=== PATIENT | male | born 1955 | race Caucasian/White ===

== ENCOUNTER 2016-09-09 18:00 | Inpatient (IN) | payer MEDICAID ==
--- NOTE | 2016-09-09 18:05 | EDPHY ---
HPI/HX/ROS/PE/MDM Narrative: CHIEF COMPLAINT: Fall, LOC. HPI: The patient is a 61-year-old male who presents via EMS in a c-collar from [facility]. Per EMS he fell from standing just prior to arrival, striking his head. He intermittently lost consciousness in the ambulance and was noted to be extremely aggressive. On arrival he ceased spontaneous breathing. GCS 3. History is thus severely limited. REVIEW OF SYSTEMS: Unobtainable due to patient's clinical condition. PMH: Blind in both eyes, bipolar disorder, diabetes. SOCIAL HISTORY: Lives at [facility], alcohol abuse. PHYSICAL EXAM: General: GCS 3. Head: Large hematoma to left occiput. ENT: ENT inspection normal.Bilateral eyes are deformed with cloudy anterior chambers. Neck: Normal inspection. Full range of motion. Respiratory: Minimal spontaneous respirations. Cardiovascular: Regular rate and rhythm. Strong peripheral pulses. Abdomen:The abdomen is nontender to palpation. There are no peritoneal signs. There are normal bowel sounds. Back: Normal to inspection. No tenderness to palpation. Skin: Normal color. No rash. Warm and dry. Extremities: Normal appearance. Full range of motion. Neuro: Unresponsive. ED Course: I met EMS on arrival and obtained a report from the carnival worker. He was receiving oxygen as he had stopped spontaneous respirations as he was rolled into the ED. A full trauma activation was called on arrival. Respiratory therapy and surgeon Dr. Lizarraga at bedside. He was able to spontaneously begin breathing on his own. An IV was established and labs ordered. Patient's alcohol level 274. 1805: 20mg IV Etomidate and 100mg IV Succinylcholine administered. Intubated with 7.5 tube (see procedure note for more detail). Procedure: Rapid sequence intubation. Indication for the procedure was head trauma. The patient was preoxygenated with 100% oxygen by face mask. The patient was given the following IV medications: 20mg IV Etomidate and 100mg IV Succinylcholine. The patient was orally endotracheally intubated under direct visualization with a 7.5 ETT. In line stabilization was performed during the procedure. Tracheal intubation was confirmed with misting on the tube; breath sounds were auscultated equally bilaterally. Chest X-ray shows ETT in good position. The procedure was performed by myself, Dr. Kuo. 181: Patient log-rolled. On exam he has a large inactive hematoma to the left occiput. Chest x-ray obtained. The patient was sent to CT for imaging at this time. Study: PA and Lateral Chest X-ray Indication: RSI. Results: I viewed the images myself on the PACS system. The radiologist interpretation is: 1. Well-positioned ET tube. 2. Clear lungs. No discernible acute injury Study: CT of the head. Indication: Trauma, AMS. Results: 1. No acute skull fracture or intracranial hemorrhage. 2. Moderate left parietal scalp hematoma. 3. Old nasal fracture and mild ethmoid and right maxillary sinus disease. The study was read by the radiologist, Dr. Lemus. I viewed the images myself on the PACS system. Study: CT of the chest. Indication: AMS. Results: 1. No evidence of acute aortic injury. 2. Bibasilar atelectasis. No pneumothorax or pulmonary contusion. 3. No acute fracture. 4. Well-positioned ET tube. 5. Query esophagitis. The study was read by the radiologist, Dr. Lemus. I viewed the images myself on the PACS system. Study: CT of the abdomen/pelvis. Indication: AMS. Results: 1. No evidence of solid organ or bowel injury. 2. No free fluid or acute fracture. 3. Cirrhosis and splenomegaly suggestive of portal venous hypertension. 4. Minimal diverticulosis of the right hemicolon. No acute diverticulitis. The study was read by the radiologist, Dr. Lemus. I viewed the images myself on the PACS system. 1930: Consulted with Dr. Emerson, hospitalist. He accepts admission. Procedure: Laceration repair. The 1.5cm laceration on the left occiput was cleaned with standard ED protocol, draped and explored to its base with a gloved finger. There were no deep structures involved. The wound was repaired in single layer technique with 3 4- 0 Prolene sutures. The wound repair was simple. The procedure was performed by myself, Dr. Kuo. Sutures to be removed in 7 days. I spent a total of 40 minutes of critical care time in obtaining history, performing a physical exam, bedside monitoring of interventions, collecting and interpreting tests and discussion with consultants but not including time spent performing procedures. MDM: This patient presents with respiratory arrest of unknown etiology. He is clearly intoxicated and did have a fall, as such was called as a full trauma activation. Thankfully, his CT scans are negative for acute trauma. He will require admission the hospital and further workup to determine the ultimate etiology of his condition. I see no signs of acute coronary syndrome, pulmonary embolus, infectious process or stroke. - Data Points Laboratory Results: Laboratory Results 09/09/16 18:07 09/09/16 18:07 09/09/16 09/09/16 09/09/16 18:45 18:07 18:07 WBC RBC Hgb POC Hgb Hct POC Hct MCV MCH MCHC RDW Plt Count MPV Neut % (Auto) Lymph % (Auto) [place] % (Auto) Eos % (Auto) Baso % (Auto) Nucleat RBC Rel Count Absolute Neuts (auto) Absolute Lymphs (auto) Absolute Monos (auto) Absolute Eos (auto) Absolute Basos (auto) Absolute Nucleated RBC Immature Gran % Immature Gran # PT INR APTT Puncture Site LEFT RADIAL Patient Temperature 37.0 DEGREES DEGREES pCO2 37 mmHg mmHg (34-38) pO2 290 mmHg H mmHg (65-75) Total CO2 20 mEq/L L mEq/L (23-27) ABG pH 7.34 L (7.35-7.45) ABG PO2/FiO2 Ratio 363 RATIO RATIO ABG O2 Saturation 100 % H % (92-95) ABG Base Excess -5.5 mEq/L L mEq/L (-2.5-2.5) O2 Concentration % 80 % % (0-100) Actual Respiration Rate 16 Set Respiration Rate 16 SIMV YES Tidal Volume 550 PEEP 5 Peak Inspir Pressure 30 Pressure Support 7 POC Sodium Sodium 142 mEq/L mEq/L (134-144) POC Potassium Potassium 3.7 mEq/L mEq/L (3.5-5.2) POC Chloride Chloride 106 mEq/L mEq/L (97-110) Carbon Dioxide 20 mEq/l L mEq/l (22-31) Bicarbonate 19 mEq/L L mEq/L (22-26) Anion Gap 16 mEq/L mEq/L (8-16) POC BUN BUN 10 mg/dL mg/dL (7-23) Creatinine 0.7 mg/dL mg/dL (0.7-1.3) POC Creatinine Estimated GFR > 60 Glucose 209 mg/dL H mg/dL (70-100) POC Glucose Calcium 9.2 mg/dL mg/dL (8.5-10.4) Ethyl Alcohol 274 mg/dL H mg/dL (0-10) Patient ABO/Rh O POSITIVE Antibody Screen NEGATIVE 09/09/16 09/09/16 09/09/16 18:07 18:07 18:04 WBC 4.86 10^3/uL 10^3/uL (3.80-9.50) RBC 5.44 10^6/uL 10^6/uL (4.40-6.38) Hgb 15.3 g/dL g/dL (13.7-17.5) POC Hgb 16.0 gm/dL gm/dL (14.5-17.3) Hct 44.9 % % (40.0-51.0) POC Hct 47 % % (42.8-50.6) MCV 82.5 fL fL (81.5-99.8) MCH 28.1 pg pg (27.9-34.1) MCHC 34.1 g/dL g/dL (32.4-36.7) RDW 11.9 % % (11.5-15.2) Plt Count 91 10^3/uL L 10^3/uL (150-400) MPV 11.1 fL fL (8.7-11.7) Neut % (Auto) 57.4 % % (39.3-74.2) Lymph % (Auto) 34.4 % % (15.0-45.0) Duval % (Auto) 6.2 % % (4.5-13.0) Eos % (Auto) 0.8 % % (0.6-7.6) Baso % (Auto) 0.8 % % (0.3-1.7) Nucleat RBC Rel Count 0.0 % % (0.0-0.2) Absolute Neuts (auto) 2.79 10^3/uL 10^3/uL (1.70-6.50) Absolute Lymphs (auto) 1.67 10^3/uL 10^3/uL (1.00-3.00) Absolute Monos (auto) 0.30 10^3/uL 10^3/uL (0.30-0.80) Absolute Eos (auto) 0.04 10^3/uL 10^3/uL (0.03-0.40) Absolute Basos (auto) 0.04 10^3/uL 10^3/uL (0.02-0.10) Absolute Nucleated RBC 0.00 10^3/uL 10^3/uL (0-0.01) Immature Gran % 0.4 % % (0.0-1.1) Immature Gran # 0.02 10^3/uL 10^3/uL (0.00-0.10) PT 14.2 SEC SEC (12.0-15.0) INR 1.11 (0.83-1.16) APTT 29.6 SEC SEC (23.0-38.0) Puncture Site Patient Temperature pCO2 pO2 Total CO2 ABG pH ABG PO2/FiO2 Ratio ABG O2 Saturation ABG Base Excess O2 Concentration % Actual Respiration Rate Set Respiration Rate SIMV Tidal Volume PEEP Peak Inspir Pressure Pressure Support POC Sodium 144 mEq/L mEq/L (134-144) Sodium POC Potassium 3.3 mEq/L mEq/L (3.3-5.0) Potassium POC Chloride 105 mEq/L mEq/L (96-108) Chloride Carbon Dioxide Bicarbonate Anion Gap POC BUN 9 mg/dL mg/dL (7-23) BUN Creatinine POC Creatinine 1.0 mg/dL mg/dL (0.8-1.5) Estimated GFR Glucose POC Glucose 211 mg/dL H mg/dL (70-100) Calcium Ethyl Alcohol Patient ABO/Rh Antibody Screen Medications Given: Discontinued Medications Etomidate (Etomidate) 20 mg IVP EDNOW ONE Stop: 09/09/16 19:23 Last Admin: 09/09/16 18:06 Dose: 20 mg Fentanyl (Sublimaze) 50 mcg IVP EDNOW ONE Stop: 09/09/16 20:00 Last Admin: 09/09/16 19:55 Dose: 50 mcg Lorazepam (Ativan Injection) 2 mg IVP EDNOW ONE Stop: 09/09/16 19:26 Last Admin: 09/09/16 19:25 Dose: 2 mg Propofol (Diprivan) 60 mg IVP EDNOW ONE Stop: 09/09/16 19:24 Last Admin: 09/09/16 18:20 Dose: 60 mg Succinylcholine Chloride (Quelicin) 100 mg IVP EDNOW ONE Stop: 09/09/16 19:23 Last Admin: 09/09/16 18:06 Dose: 100 mg Point of Care Test Results: 09/09/16 18:04 POC Sodium 144 POC Potassium 3.3 POC Chloride 105 POC BUN 9 POC Creatinine 1.0 POC Glucose 211 H General Initial Vital Signs: Initial Vital Signs Temperature (C) 36.4 C 09/09/16 18:03 Heart Rate 115 H 09/09/16 18:03 Respiratory Rate 20 09/09/16 18:03 Blood Pressure 98/65 L 09/09/16 18:03 O2 Sat (%) 100 09/09/16 18:03 O2 Delivery Mode Bag Valve Mask O2 (L/minute) 15 Allergies/Adverse Reactions: Penicillins Allergy (Verified 09/30/15 23:34) Home Medications: Medication Instructions Recorded Brimonidine/Timolol [Combigan (*)] 1 drop RTEYE HS 09/09/16 Calcium Carbonate [Tums 500MG (*)] 1,000 mg PO Q12H PRN 09/09/16 Cholecalciferol Vit D3 [Vitamin D3 5,000 units PO MO@08 09/09/16 (*)] Hydrocodone/Acetaminophen [[place]ante 1 each PO Q4 PRN 09/09/16 5/325 (*)] Insulin Detemir [Levemir Flextouch] 26 unit SQ BID@,09/09/16 Latanoprost 0.005% [Xalatan 0.005% 1 drops EACHEYE HS 09/09/16 (*)] Magnesium Hydroxide [Milk of 30 ml PO DAILY PRN 09/09/16 Magnesia] Omeprazole [Prilosec 20 mg] 20 mg PO DAILY 09/09/16 Pregabalin [Lyrica 50mg (*)] 50 mg PO BID@,20 09/09/16 QUEtiapine FUMARATE [Seroquel 200 200 mg PO HS 09/09/16 mg (*)] Departure - Departure Disposition: [facility] Clinical Impression: Altered mental status Qualifiers: Altered mental status type: unspecified Qualified Code(s): R41.82 - Altered mental status, unspecified Head injury Qualifiers: Encounter type: initial encounter Qualified Code(s): S09.90XA - Unspecified injury of head, initial encounter Scalp laceration Qualifiers: Encounter type: initial encounter Qualified Code(s): S01.01XA - Laceration without foreign body of scalp, initial encounter Condition: Fair Report Scribed for: Min Kuo Report Scribed by: Ran George Date of Report: 09/09/16 Time of Report: 18:05 Physician Review and Approval Statement: Portions of this note were transcribed by a medical and scientific illustrator. I personally performed a history, physical exam, medical decision making, and confirmed accuracy of information the transcribed note.
[2016-09-09 18:14] LABS: % IMMATURE GRANULYOCYTES 0.4 % (0.0-1.1); ABSOLUTE IMMATURE GRANULOCYTES 0.02 10^3/uL (0.00-0.10); ADD DIFF? NO; ADD MORPH? NO; ADD SCAN? NO; ATYPICAL LYMPHOCYTE FLAG 10 (0-99); FRAGMENT RBC FLAG 0 (0-99); HEMATOCRIT 44.9 % (40.0-51.0); HEMOGLOBIN 15.3 g/dL (13.7-17.5); LEFT SHIFT FLG 0 (0-99); LIPEMIA HEMOLYSIS FLAG 90 (0-99); MEAN CELL HEMOGLOBIN 28.1 pg (27.9-34.1); MEAN CELL HEMOGLOBIN CONCENTR. 34.1 g/dL (32.4-36.7); MEAN CELL VOLUME 82.5 fL (81.5-99.8); MEAN PLATELET VOLUME 11.1 fL (8.7-11.7); PLATELET CLUMPS FLAG 20 (0-99); PLATELET COUNT 91 10^3/uL (150-400); RED BLOOD CELL COUNT 5.44 10^6/uL (4.40-6.38); RED CELL DISTRIBUTION WIDTH 11.9 % (11.5-15.2)
[2016-09-09 18:32] LABS: INR 1.11 (0.83-1.16); PROTIME(PATIENT) 14.2 SEC (12.0-15.0)
[2016-09-09 18:33] LABS: ANION GAP 16 mEq/L (8-16); APTT 29.6 SEC (23.0-38.0); CALCIUM 9.2 mg/dL (8.5-10.4); CARBON DIOXIDE 20 mEq/l (22-31); CHLORIDE 106 mEq/L (97-110); CREATININE 0.7 mg/dL (0.7-1.3); ETHANOL SERUM 274 mg/dL (0-10); GLOMERULAR FILTRATION RATE > 60; GLUCOSE 209 mg/dL (70-100); POTASSIUM 3.7 mEq/L (3.5-5.2); SODIUM 142 mEq/L (134-144)
[2016-09-09] MEDS ORDERED: IOPAMIDOL (ISOVUE-300) 100 ML BTL IV ONE (18:41)
[2016-09-09 19:04] LABS: BASE EXCESS -5.5 mEq/L (-2.5-2.5); BICARBONATE 19 mEq/L (22-26); MEASURED OXYGEN SATURATION 100 % (92-95); PCO2 37 mmHg (34-38); PO2 290 mmHg (65-75); TCO2 20 mEq/L (23-27)
[2016-09-09 19:05] LABS: O2 CONCENTRATIION 80 % (0-100); P/F RATIO 363 RATIO; PATIENT RATE 16; PIP 30; PRESSURE SUPPORT 7; SIMV YES
[2016-09-09] MEDS ORDERED: LORazepam 2 MG/ML INJ ONE (19:18)
[2016-09-09] MEDS ORDERED: SUCCINYLCHOLINE CHLORIDE 200 MG/10 ML VIAL IVP ONE (19:22)
[2016-09-09] MEDS ORDERED: ETOMIDATE 20 MG/10 ML VIAL IVP ONE (19:22)
[2016-09-09] MEDS ORDERED: PROPOFOL 200 MG/20 ML VIAL IVP ONE (19:23)
[2016-09-09] MEDS ORDERED: LORazepam 2 MG/ML INJ IVP ONE (19:25)
[2016-09-09] MEDS ORDERED: PROPOFOL/EMULSION 100 ML IV SCH (19:30)
[2016-09-09] MEDS ORDERED: fentaNYL 100 MCG/2 ML INJ ONE (19:55)
[2016-09-09] MEDS ORDERED: fentaNYL 100 MCG/2 ML INJ IVP ONE (19:59)
--- NOTE | 2016-09-09 20:04 | CPEKG ---
Heart Rate: 90 RR Interval: 667 P-R Interval: 148 QRSD Interval: 86 QT Interval: 380 QTC Interval: 465 P [place]: 62 QRS [place]: 63 T Wave [place]: 46 EKG Severity - OTHERWISE NORMAL ECG - EKG Impression: SINUS RHYTHM EKG Impression: LOW VOLTAGE IN FRONTAL LEADS Electronically Signed By: Andrew Mcdermott 10-Sep-2016 09:41:41
[2016-09-09] MEDS ORDERED: SUCCINYLCHOLINE CHLORIDE*ANESTHESIA ONLY*200 MG/10 ML SYR IVP ONE (20:25)
[2016-09-09] MEDS ORDERED: ETOMIDATE 40 MG/20 ML INJ ONE (20:25)
[2016-09-09] MEDS ORDERED: D50W 25 GM/50 ML SYR IVP PRN (20:45)
[2016-09-09] MEDS ORDERED: ONDANSETRON 4 MG/2 ML VIAL IVP PRN (20:45)
[2016-09-09] MEDS ORDERED: PROMETHAZINE HCL 25 MG/ML INJ IVP PRN (20:45)
[2016-09-09] MEDS ORDERED: MAGNESIUM HYDROXIDE 30 ML UDCUP PO PRN (20:47)
[2016-09-09] MEDS ORDERED: BRIMONIDINE/TIMOLOL 5 ML OPHT.BTL RTEYE SCH (21:00)
[2016-09-09] MEDS ORDERED: LATANOPROST 0.005% 2.5 ML OPHT DROPS EACHEYE SCH (21:00)
--- NOTE | 2016-09-09 21:23 | GHP ---
[f rep st] HISTORY AND PHYSICAL DATE OF ADMISSION: 09/09/2016 CHIEF COMPLAINT: Fall with loss of consciousness. HISTORY OF PRESENT ILLNESS: This is a 61-year-old male resident of [facility] with a history of alcohol abuse, chronic pain, diabetes, who was brought to the Emergency Department in a C-collar. Per EMS, he fell from standing just prior to arrival, and struck his head. He intermittently lost consciousness in the ambulance and was noted to be very aggressive. Upon arrival to the Emergency Department, the patient stopped breathing and was subsequently intubated with a GCS of 3. During the time of my exam, the patient is intubated and unresponsive in the Emergency Department, making it impossible to obtain any further history. In the Emergency Department, the patient was found to have an ethyl alcohol level of 274. He also sustained a laceration to the back of his head for which he should have suture removal in 7 days. PAST MEDICAL HISTORY: Diabetes, alcohol abuse, chronic pain, bipolar disorder. PAST SURGICAL HISTORY: Unobtainable. HOME MEDICATIONS: Seroquel, Lyrica, Prilosec, milk of magnesia, Xalatan, Levemir, Talmo, vitamin D, TUMS, and Combigan. ALLERGIES: Penicillin. SOCIAL HISTORY: The patient lives at [facility]. He has long history of alcohol abuse. REVIEW OF SYSTEMS: A comprehensive 10-point review of systems was attempted, but unable to be obtained due to the patient's clinical condition. PHYSICAL EXAM: VITAL SIGNS: Blood pressure 101/62, pulse of 85, respiratory rate 16, O2 saturation 94% on the vent, temperature afebrile. GENERAL: Unresponsive. HEAD: Normocephalic. Closed laceration posteriorly. NECK: In C-collar. CARDIOVASCULAR: S1, S2. No JVD. No lower extremity edema. PULMONARY: Lungs are clear. No wheezes, rales, or rhonchi. ABDOMEN: Soft, nontender, nondistended. No guarding or rebound tenderness. Normoactive bowel sounds. EXTREMITIES: No clubbing or cyanosis. NEURO: Unable to assess since the patient is on propofol and not following commands. SKIN: Clear, no rashes , no jaundice. DIAGNOSTICS: EKG, which I visualized and personally interpreted, shows sinus rhythm, rate 90 beats per minute, no acute ischemic changes. Chest x-ray shows a well-positioned ET tube. Lungs are clear with no pneumonia. CT of head was negative for skull fracture or intracranial hemorrhage. Moderate left parietal scalp hematoma. Old nasal fracture and mild ethmoid and right maxillary sinus disease. CT of the abdomen and pelvis: No evidence of solid organ or bowel injury. No free fluid or acute fracture as evidence for cirrhosis and splenomegaly. Has minimal diverticulosis of the right hemicolon with no acute diverticulitis. CT of the chest with IV contrast: No evidence of acute aortic injury or pneumonia. WBC is 4.8, hemoglobin 15.3, hematocrit 44.9, platelets 91. INR 1.11. Sodium 142, potassium 3.7, chloride 106, CO2 20, BUN 10, creatinine 0.7, glucose 209, bicarb 19. Ethyl alcohol level 274. ASSESSMENT AND PLAN: This is a 61-year-old male resident of [facility] who was brought to the emergency department with: 1. Acute encephalopathy possibly due to acute alcohol intoxication as well as concomitant opioid use. Plan: The patient is currently intubated and sedated in the Emergency Department. See below. 2. Acute respiratory failure of unclear etiology status post intubation in the Emergency Department also possibly due to narcotics and alcohol Plan: Will continue the patient on mechanical ventilation overnight. Will consult Pulmonary Critical Care and wean from the ventilator as tolerated. Check troponin. Doubt PE in the absence of hypoxemia. 3. History of alcohol abuse. Plan: Will obtain liver function tests, as well as a serum ammonia level. 4. Scalp laceration. Plan: Will need suture removal in 7 days. 5. Diabetes. Plan: Monitor blood sugars and watch for hypoglycemia. Will treat with correctional insulin for now and resume basal insulin /[id number]/MODL MTDD
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
[2016-09-09] MEDS: INSULIN GLARGINE 100 UNITS/ML SYRINGE SC SCH (21:36)
[2016-09-10 05:06] LABS: % IMMATURE GRANULYOCYTES 0.3 % (0.0-1.1); ABSOLUTE IMMATURE GRANULOCYTES 0.01 10^3/uL (0.00-0.10); ADD DIFF? NO; ADD MORPH? NO; ADD SCAN? NO; ATYPICAL LYMPHOCYTE FLAG 0 (0-99); FRAGMENT RBC FLAG 0 (0-99); HEMOGLOBIN 13.6 g/dL (13.7-17.5); LEFT SHIFT FLG 0 (0-99); LIPEMIA HEMOLYSIS FLAG 90 (0-99); MEAN CELL HEMOGLOBIN 28.8 pg (27.9-34.1); MEAN CELL VOLUME 84.7 fL (81.5-99.8); MEAN PLATELET VOLUME 11.4 fL (8.7-11.7); PLATELET CLUMPS FLAG 0 (0-99); PLATELET COUNT 73 10^3/uL (150-400); RED BLOOD CELL COUNT 4.72 10^6/uL (4.40-6.38); RED CELL DISTRIBUTION WIDTH 12.2 % (11.5-15.2)
[2016-09-10 05:21] LABS: ALANINE AMINOTRANSFERASE 36 IU/L (21-72); ALBUMIN 3.4 g/dL (3.5-5.0); ALKALINE PHOSPHATASE 85 IU/L (38-126); ANION GAP 8 mEq/L (8-16); ASPARTATE AMINOTRANSFERASE 18 IU/L (17-59); BILIRUBIN,TOTAL 0.5 mg/dL (0.1-1.4); CALCIUM 8.2 mg/dL (8.5-10.4); CARBON DIOXIDE 22 mEq/l (22-31); CHLORIDE 114 mEq/L (97-110); CREATININE 0.6 mg/dL (0.7-1.3); GLOMERULAR FILTRATION RATE > 60; GLUCOSE 143 mg/dL (70-100); POTASSIUM 3.8 mEq/L (3.5-5.2); SODIUM 144 mEq/L (134-144); TOTAL PROTEIN 6.5 g/dL (6.3-8.2)
[2016-09-10] MEDS ORDERED: LORazepam 2 MG/ML INJ IVP PRN (06:53)
[2016-09-10] MEDS: INSULIN LISPRO 100 UNIT/ML SC SCH ×2 (08:51→13:11)
[2016-09-10] MEDS ORDERED: ENOXAPARIN 40 MG/0.4 ML SYR SC SCH (09:00)
[2016-09-10] MEDS ORDERED: PANTOPRAZOLE SODIUM 40 MG in NS 100 ML IV SCH (09:00)
[2016-09-10] MEDS: INSULIN GLARGINE 100 UNITS/ML SYRINGE SC SCH (09:10)
[2016-09-10] MEDS ORDERED: NS 1,000 ML IV ONE (11:22)
--- NOTE | 2016-09-10 13:07 | SOAPPROG ---
SOAP Progress Note Assessment/Plan: Assessment:asked to follow-up regarding c-spine clearance. patient up in chair. no neck complaints. no extremity numbness or tingling. afebrile. vss. comfortable. [place] J in place. scalp lac clean. no midline or paraspinal neck tenderness. no pain with flexion or extension. neck clinically cleared. dispo per hospital med. call with questions. Plan: 09/10/16 13:04 Objective: Vital Signs Temp Pulse Resp BP Pulse Ox 37.3 C 117 H 18 163/81 H 100 09/10/16 08:00 09/10/16 10:00 09/10/16 10:00 09/10/16 10:00 09/10/16 10:00 Laboratory Results 09/10/16 04:50 09/10/16 04:50 09/09/16 09/10/16 09/11/16 05:59 05:59 05:59 Intake Total 572 Output Total 1800 Balance -1228 PT 14.2 SEC (12.0-15.0) 09/09/16 18:07 INR 1.11 (0.83-1.16) 09/09/16 18:07 ICD10 Worksheet Patient Problems: Problems Problem Status Onset Altered mental status Acute Head injury Acute Scalp laceration Acute
--- NOTE | 2016-09-10 13:11 | PDIAF ---
- Diagnosis Diagnosis: alcohol intoxication Code Status: Full Code - Medication Management Discharge Medications: Medications to Continue on Transfer Brimonidine/Timolol [Combigan (*)] 1 drop RTEYE HS 09/09/16 [Last Taken 09/08/16 ] Calcium Carbonate [Tums 500MG (*)] 1,000 mg PO Q12H PRN 09/09/16 [Last Taken Unknown] Cholecalciferol Vit D3 [Vitamin D3 (*)] 5,000 units PO MO@09/09/16 [Last Taken 09/03/16] Hydrocodone/Acetaminophen [[place] 5/325 (*)] 1 each PO Q4 PRN 09/09/16 [Last Taken 09/08/16 21:50] Insulin Detemir [Levemir Flextouch] 26 unit SQ BID@,09/09/16 [Last Taken 08:00] Latanoprost 0.005% [Xalatan 0.005% (*)] 1 drops EACHEYE HS 09/09/16 [Last Taken 09/08/16] Magnesium Hydroxide [Milk of Magnesia] 30 ml PO DAILY PRN 09/09/16 [Last Taken Unknown] Omeprazole [Prilosec 20 mg] 20 mg PO DAILY 09/09/16 [Last Taken 09/09/16] Pregabalin [Lyrica 50mg (*)] 50 mg PO BID@,09/09/16 [Last Taken 08/28/16] QUEtiapine FUMARATE [Seroquel 200 mg (*)] 200 mg PO HS 09/09/16 [Last Taken ] Discharge Medications: Refer to the Discharge Home Medication list for PRN reason. - Follow Up Care Current Providers and Referrals: Patient,NotPresent [Primary Care Provider] - As per Instructions
[2016-09-10 13:17] VITALS: BP 140/55; PULSE 120; RESP 24; TEMP 98.4; O2SAT 98
--- NOTE | 2016-09-10 13:35 | GDS ---
[f rep st] DISCHARGE SUMMARY DISCHARGE DIAGNOSES: 1. Alcohol intoxication. 2. Status post fall with posterior scalp laceration. 3. Acute respiratory failure requiring intubation for a short duration of time. 4. History of type 2 diabetes. 5. History of alcohol abuse. 6. Chronic pain. 7. Bipolar. HISTORY: A 61-year-old male who lives at [facility]. He does have a previous history of alcohol abuse. He states that he slipped on a hard floor with socks. He intermittently lost consciousness in the ambulance and was very aggressive. He was intubated in the emergency department for a GCS o f 3. His alcohol level is 274. HOSPITAL COURSE: Patient was admitted and actually self-extubated overnight. In the morning, he wa s lucid, alert, and quite combative and aggressive at times. He is demanding to be discharged back to [facility]. His C-spine was cleared. His electrolytes appeared to be normal. He is going to be discharged back. DISPOSITION: [facility]. DISCHARGE MEDICATIONS: He is to resume his previous medications. FOLLOWUP INSTRUCTIONS: He is instructed to get his sutures removed in 7 days. /[id number]/MODL
== END 2016-09-10 14:15 | DRG 208 ==
LOC: EDUNIT# → F2N 20:16 → OBSVTOIN 20:46
PROVIDERS: ADMIT Family Medicine; ATTEND Internal Medicine
PROC: 5A1935Z Respiratory Ventilation, Less than 24 Consecutive Hours (ICD-10-PCS; principal; 2016-09-09)
PROC: 0HQ0XZZ Repair Scalp Skin, External Approach (ICD-10-PCS; principal; 2016-09-09)
PROC: 0BH17EZ Insertion of Endotracheal Airway into Trachea, Via Natural or Artificial Opening (ICD-10-PCS; principal; 2016-09-09)
DX: J96.00 Acute respiratory failure, unspecified whether with hypoxia or hypercapnia (principal); S01.01XA Laceration without foreign body of scalp, initial encounter; S06.9X1A Unspecified intracranial injury with loss of consciousness of 30 minutes or less, initial encounter; F10.229 Alcohol dependence with intoxication, unspecified; Y90.8 Blood alcohol level of 240 mg/100 ml or more; E11.40 Type 2 diabetes mellitus with diabetic neuropathy, unspecified; H54.0 Blindness, both eyes; F31.9 Bipolar disorder, unspecified; F11.20 Opioid dependence, uncomplicated; R40.2432 Glasgow coma scale score 3-8, at arrival to emergency department; W01.10XA Fall on same level from slipping, tripping and stumbling with subsequent striking against unspecified object, initial encounter; Y92.122 Bedroom in nursing home as the place of occurrence of the external cause; Z88.0 Allergy status to penicillin
CPT/HCPCS: 82947-QW; G0480; J0330; J1815; J2704; J3010; Q9967

== ENCOUNTER 2017-04-10 16:48 | Emergency (ER) | payer MEDICAID ==
[2017-04-10 16:59] VITALS: RESP 18; TEMP 98.6
--- NOTE | 2017-04-10 17:05 | EDPHY ---
H & P Time Seen by Provider: 04/10/17 16:49 HPI/ROS: CHIEF COMPLAINT: Right shoulder pain HISTORY OF PRESENT ILLNESS: 62-year-old male presents to the emergency department by ambulance complaining of severe pain in his right shoulder. He states 4 days ago while he was staying at [facility], he got up he to use the bathroom in the middle of the night and hit the corner of a wall with his right shoulder. He did not fall to the ground but had immediate pain in his right shoulder. They obtained x-rays at [facility] the following day which were negative for fracture. He has not been placed in a sling. He has pain is worse with movement. He denies pain in his right elbow or wrist. Denies head injury or neck pain. Denies chest pain or difficulty breathing. No fevers or chills. Denies paresthesias in upper extremities. Denies symptoms in the left upper extremity or lower extremities bilaterally. REVIEW OF SYSTEMS: Constitutional: No fever, no chills. Eyes: No double or blurry vision. ENT: No sore throat. Respiratory: No cough, no shortness of breath. Cardiac: No chest pain. Gastrointestinal: No abdominal pain, vomiting or diarrhea. Genitourinary: No dysuria. Musculoskeletal: No neck or back pain. Skin: No rashes. Neurological: No headache. Past Medical/Surgical History: Bipolar, chronic pain, type 2 diabetic, cirrhosis, blindness, splenomegaly Social History: Resident at [facility] x 1.5 years Smoking Status: Light smoker Physical Exam: General Appearance: Alert, no distress. Eyes: Pupils equal and round. Extraocular motions are all intact. ENT: Mouth: Mucous membranes moist. Respiratory: No wheezing, rhonchi, or rales, lungs are clear to auscultation. Cardiovascular: Regular rate and rhythm. Gastrointestinal: Abdomen is soft and nontender, no masses, no rebound or guarding, bowel sounds normal. Neurological: Alert and oriented x 3, cranial nerves II through XII grossly intact Skin: Warm and dry, no rashes. Musculoskeletal: Nontender to palpate along the cervical, thoracic or lumbar spine. Neck is supple. Extremities: Right shoulder reveals some mild swelling. There is no redness or warmth or anything to suggest cellulitis. He has full range of motion of his right elbow and right wrist. Limited range of motion of the right shoulder secondary to pain. No signs of septic joint. Psychiatric: Patient is oriented X 3, there is no agitation. Constitutional: Initial Vital Signs Temperature (C) 37 C 04/10/17 16:57 Heart Rate 99 04/10/17 16:57 Respiratory Rate 18 04/10/17 16:57 Blood Pressure 104/80 04/10/17 16:57 O2 Sat (%) 94 04/10/17 16:57 O2 Delivery Mode Room Air Allergies/Adverse Reactions: Penicillins Allergy (Verified 04/10/17 16:57) Home Medications: Medication Instructions Recorded Brimonidine/Timolol [Combigan (*)] 1 drop RTEYE HS 09/09/16 Calcium Carbonate [Tums 500MG (*)] 1,000 mg PO Q12H PRN 09/09/16 Cholecalciferol Vit D3 [Vitamin D3 5,000 units PO MO@08 09/09/16 (*)] Hydrocodone/Acetaminophen [[place] 1 each PO Q4 PRN 09/09/16 5/325 (*)] Insulin Detemir [Levemir Flextouch] 26 unit SQ BID@,09/09/16 Latanoprost 0.005% [Xalatan 0.005% 1 drops EACHEYE HS 09/09/16 (*)] Magnesium Hydroxide [Milk of 30 ml PO DAILY PRN 09/09/16 Magnesia] Omeprazole [Prilosec 20 mg] 20 mg PO DAILY 09/09/16 Pregabalin [Lyrica 50mg (*)] 50 mg PO BID@,09/09/16 QUEtiapine FUMARATE [Seroquel 200 200 mg PO HS 09/09/16 mg (*)] Medical Decision Making Procedures: The patient was placed in a sling and examined post application in good placement 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 ED Course/Re-evaluation: 62-year-old male who ran into the wall and injured his right shoulder presents with ongoing pain. His x-ray report from [facility] was reviewed and revealed no fractures. I do not think repeat imaging is necessary. He was placed in a sling for comfort and was actually feeling much better. I do not think this patient has a septic joint. I do not see any evidence of cellulitis. He does have a mild effusion noted on exam however I do not think that this is septic joint. I also encouraged anti-inflammatories. He will follow up with orthopedic surgeon this week or early next week to recheck. He was comfortable with this plan. Differential Diagnosis: Including but not limited to fracture, dislocation, contusion, sprain Departure - Departure Disposition: Home, Routine, Self-Care Clinical Impression: Contusion of right shoulder Qualifiers: Encounter type: initial encounter Qualified Code(s): S40.011A - Contusion of right shoulder, initial encounter Condition: Good Instructions: Contusion in Adults (ED) Additional Instructions: Sling for comfort and support. Ibuprofen 600mg every 8 hours for pain as directed or you may take Aleve twice daily with food. Referrals: Schuyler Dunlap MD [Medical Doctor] - 2-3 days without fail (Orthopedic surgeon on-call)
[2017-04-10 18:47] VITALS: BP 138/89; PULSE 96; O2SAT 95
== END 2017-04-10 18:46 | disposition home or self-care (01) ==
LOC: EDUNIT# → EEVIPCON 16:48
DX: S40.011A Contusion of right shoulder, initial encounter (principal); E11.9 Type 2 diabetes mellitus without complications; F17.200 Nicotine dependence, unspecified, uncomplicated; Z79.4 Long term (current) use of insulin; W22.8XXA Striking against or struck by other objects, initial encounter; Y99.8 Other external cause status; Y93.89 Activity, other specified

== ENCOUNTER 2017-05-01 10:26 | Inpatient (IN) | payer MEDICAID ==
[2017-05-01] MEDS ORDERED: NS 2,600 ML IV ONE (11:12)
--- NOTE | 2017-05-01 11:15 | EDPHY ---
H & P Stated Complaint: Sent to ED for MRI/eval poss septic joint R shoulder Time Seen by Provider: 05/01/17 11:03 HPI/ROS: CHIEF COMPLAINT: Shoulder pain HISTORY OF PRESENT ILLNESS: The patient is a 62-year-old diabetic man with blindness and alcoholism who is sent from Dr. dunlap's office for rule out osteomyelitis of his right shoulder. The patient was seen in the ER 3 weeks ago after he bumped his shoulder on the wall. [facility]. He was placed in a sling. No sign of infection at that time. He followed up with Dr. Dunlap's office today and x- rays revealed some lucency in the bone that could be osteomyelitis. He has overlying erythema and warmth and pain. He denies fevers. No nausea vomiting or diarrhea. No abdominal pain. No chest pain or shortness of breath. Dr. Dunlap's plans to operate tomorrow and initially was going to admit the hospital is full. REVIEW OF SYSTEMS: Constitutional: denies: chills, fever, recent illness, recent injury EENTM: denies: blurred vision, double vision, nose congestion Respiratory: denies: cough, shortness of breath Cardiac: denies: chest pain, irregular heart rate, lightheadedness, palpitations Gastrointestinal/Abdominal: denies: abdominal pain, diarrhea, nausea, vomiting, blood streaked stools Genitourinary: denies: dysuria, frequency, hematuria, pain Musculoskeletal: See HPI Skin: See HPI Neurological: denies: headache, numbness, paresthesia, tingling, dizziness, weakness Hematologic/Lymphatic: denies: blood clots, easy bleeding, easy bruising Immunologic/allergic: denies: HIV/AIDS, transplant EXAM: GENERAL: Well-appearing, well-nourished and in no acute distress. HEAD: Atraumatic, normocephalic. EYES: Pupils equal round and reactive to light, extraocular movements intact, sclera anicteric, conjunctiva are normal. ENT: TMs normal, nares patent, oropharynx clear without exudates. Moist mucous membranes. NECK: Normal range of motion, supple without lymphadenopathy or JVD. LUNGS: Breath sounds clear to auscultation bilaterally and equal. No wheezes rales or rhonchi. HEART: Regular rate and rhythm without murmurs, rubs or gallops. ABDOMEN: Soft, nontender, normoactive bowel sounds. No guarding, no rebound. No masses appreciated. BACK: No CVA tenderness, no spinal tenderness, step-offs or deformities EXTREMITIES: Right shoulder pain, limited range of motion tired slightly erythematous and tends. No visible abrasion or laceration. NEUROLOGICAL: Cranial nerves II through XII grossly intact. Normal speech, normal gait. 5/5 strength, normal movement in all extremities, normal sensation PSYCH: Normal mood, normal affect. SKIN: Warm, dry, normal turgor, no visible rashes or lesions. Source: Patient Exam Limitations: No limitations - Personal History Current Tetanus Diphtheria and Acellular Pertussis (TDAP): Yes - Medical/Surgical History Hx Asthma: No Hx Chronic Respiratory Disease: No Hx Diabetes: Yes Hx Cardiac Disease: No Hx Renal Disease: No Hx Cirrhosis: No Hx Alcoholism: No Hx HIV/AIDS: No Hx Splenectomy or Spleen Trauma: No Other PMH: BIPOLAR,CHRONIC PAIN,TYPE 2 DM,BLINDNESS, CIRROHSIS, SPENOMEGALY - Family History Significant Family History: No pertinent family hx - Social History Smoking Status: Current every day smoker Alcohol Use: Heavy Drug Use: None Constitutional: Initial Vital Signs Temperature (C) 36.6 C 05/01/17 10:35 Heart Rate 94 05/01/17 10:35 Respiratory Rate 18 05/01/17 10:35 Blood Pressure 85/61 L 05/01/17 10:35 O2 Sat (%) 94 05/01/17 10:35 O2 Delivery Mode Room Air Allergies/Adverse Reactions: Penicillins Allergy (Intermediate, Verified 05/01/17 10:49) Hives Home Medications: Medication Instructions Recorded Brimonidine/Timolol [Combigan (*)] 1 drop RTEYE BID 09/09/16 Calcium Carbonate [Tums 500MG (*)] 1,000 mg PO Q12H PRN 09/09/16 Cholecalciferol Vit D3 [Vitamin D3 5,000 units PO MO 09/09/16 (*)] Latanoprost 0.005% [Xalatan 0.005% 1 drops RTEYE HS 09/09/16 (*)] Magnesium Hydroxide [Milk of 30 ml PO DAILY PRN 09/09/16 Magnesia] Omeprazole [Prilosec 20 mg] 20 mg PO HS 09/09/16 Acetaminophen [Tylenol 325mg (*)] 650 mg PO Q6HRS PRN 05/01/17 Diclofenac Sodium 1% [Voltaren Gel 1 maxwell TP QID PRN 05/01/17 (*)] Gabapentin [Neurontin 300 MG (*)] 300 mg PO TID 05/01/17 Insulin Aspart [Novolog Flexpen] 4 unit SQ BID 05/01/17 Insulin Detemir [Levemir] 30 unit SQ BID 05/01/17 Ondansetron Odt [Zofran Odt 4 mg 4 mg PO Q6HRS PRN 05/01/17 (*)] QUEtiapine FUMARATE [Seroquel 100 100 mg PO DAILY 05/01/17 mg (*)] oxyCODONE IR [Oxycodone Ir (*)] 5 mg PO Q4HRS PRN 05/01/17 Medical Decision Making - Diagnostics Imaging Results: Imaging Impressions Upper Extremity MRI 05/01/17 11:10 Impression: 1. Extensive soft tissue abscess around the right shoulder, which does not appear to extend intra-articular. Muscles involved with adjacent mass effect are the supraspinatus, infraspinatus, subscapularis, trapezius, and deltoid muscle. Evidence of osteomyelitis with erosive change of the distal clavicle, acromion, and scapular spine. 2. Extension of the abscess through the subacromial/subdeltoid bursa, but not through the rotator cuff. Minimal tendinopathy rotator cuff. 3. Partial tear posterosuperior labrum. No evidence for joint effusion or inflammatory change intra-articular in the right shoulder. Results discussed with Dr. Tre Collins and Dr. Schuyler Scott on 01 May 2017 at 1330 hours. ED Course/Re-evaluation: 1:24 p.m. the patient meet septic criteria however I will hold off on the fluid bolus because his hyponatremic and we do not want to brain injury. His blood pressure is stable. 125/73 with a heart rate of 88. I will admit to the medical service. MRI results pending. I will start him on vancomycin. He does have surgery planned for tomorrow 1:35 p.m. I discussed the case with Dr. Dunbar who will accept to the medical service under Dr. Shay. Dr. Ornelas has been informed of the MRI results and will plan on surgery tomorrow. The patient is receiving vancomycin. We will hold off on further fluids because of the hyponatremia. Differential Diagnosis: Partial list of the Differential diagnosis considered include but were not limited to; sepsis, osteomyelitis, hyponatremia, renal failure, dehydration and although unlikely based on the history and physical exam, I also considered head injury, acute coronary disease. Critical Care Time: Critical care time spent by me, Dr. Collins exclusive with this patient was 45 minutes, exclusive of the PA time exclusive of procedures. The organ system that was at risk was cardiovascular and musculoskeletal and I gave IV fluids, antibiotics, workup and consultation to prevent worsening of the patient's condition - Data Points Laboratory Results: Laboratory Results 05/01/17 11:20 05/01/17 11:20 05/01/17 05/01/17 05/01/17 13:30 12:45 11:20 WBC RBC Hgb Hct MCV MCH MCHC RDW Plt Count MPV Neut % (Auto) Lymph % (Auto) [place] % (Auto) Eos % (Auto) Baso % (Auto) Nucleat RBC Rel Count Absolute Neuts (auto) Absolute Lymphs (auto) Absolute Monos (auto) Absolute Eos (auto) Absolute Basos (auto) Absolute Nucleated RBC Immature Gran % Immature Gran # PT INR APTT VBG Lactic Acid 1.2 mmol/L D mmol/L (0.7-2.1) Sodium 120 mEq/L L mEq/L (134-144) Potassium 5.2 mEq/L mEq/L (3.5-5.2) Chloride 89 mEq/L L mEq/L (97-110) Carbon Dioxide 22 mEq/l mEq/l (22-31) Anion Gap 9 mEq/L mEq/L (8-16) BUN 19 mg/dL mg/dL (7-23) Creatinine 0.8 mg/dL mg/dL (0.7-1.3) Estimated GFR > 60 Glucose 170 mg/dL H mg/dL (70-100) Calcium 8.0 mg/dL L mg/dL (8.5-10.4) Total Bilirubin 2.2 mg/dL H mg/dL (0.1-1.4) Conjugated Bilirubin 1.5 mg/dL H mg/dL (0.0-0.5) Unconjugated Bilirubin 0.7 mg/dL mg/dL (0.0-1.1) Urine Color KRIS Urine Appearance HAZY Urine pH 5.0 (5.0-7.5) Ur Specific [place] 1.016 (1.002-1.030) Urine Protein 1+ H (NEGATIVE) Urine Ketones NEGATIVE (NEGATIVE) Urine Blood 2+ H (NEGATIVE) Urine Nitrate NEGATIVE (NEGATIVE) Urine Bilirubin POSITIVE H (NEGATIVE) Urine Urobilinogen 4.0 EU H EU (0.2-1.0) Ur Leukocyte Esterase NEGATIVE (NEGATIVE) Urine RBC 5-10 /hpf H /hpf (0-3) Urine WBC 5-10 /hpf H /hpf (0-3) Ur Epithelial Cells TRACE /lpf /lpf (NONE-1+) Urine Bacteria TRACE /hpf H /hpf (NONE SEEN) Hyaline Casts 15-25 /lpf H /lpf (0-1) Urine Mucus 1+ /lpf /lpf (NONE-1+) Urine Glucose 3+ H (NEGATIVE) 05/01/17 05/01/17 05/01/17 11:20 11:20 11:20 WBC 13.44 10^3/uL H 10^3/uL (3.80-9.50) RBC 4.33 10^6/uL L 10^6/uL (4.40-6.38) Hgb 11.8 g/dL L g/dL (13.7-17.5) Hct 34.9 % L % (40.0-51.0) MCV 80.6 fL L fL (81.5-99.8) MCH 27.3 pg L pg (27.9-34.1) MCHC 33.8 g/dL g/dL (32.4-36.7) RDW 12.9 % % (11.5-15.2) Plt Count 197 10^3/uL 10^3/uL (150-400) MPV 10.2 fL fL (8.7-11.7) Neut % (Auto) 83.5 % H % (39.3-74.2) Lymph % (Auto) 6.1 % L % (15.0-45.0) Elliott % (Auto) 8.4 % % (4.5-13.0) Eos % (Auto) 0.5 % L % (0.6-7.6) Baso % (Auto) 0.4 % % (0.3-1.7) Nucleat RBC Rel Count 0.0 % % (0.0-0.2) Absolute Neuts (auto) 11.22 10^3/uL H 10^3/uL (1.70-6.50) Absolute Lymphs (auto) 0.82 10^3/uL L 10^3/uL (1.00-3.00) Absolute Monos (auto) 1.13 10^3/uL H 10^3/uL (0.30-0.80) Absolute Eos (auto) 0.07 10^3/uL 10^3/uL (0.03-0.40) Absolute Basos (auto) 0.05 10^3/uL 10^3/uL (0.02-0.10) Absolute Nucleated RBC 0.00 10^3/uL 10^3/uL (0-0.01) Immature Gran % 1.1 % % (0.0-1.1) Immature Gran # 0.15 10^3/uL H 10^3/uL (0.00-0.10) PT 18.0 SEC H SEC (12.0-15.0) INR 1.49 H (0.83-1.16) APTT 35.8 SEC SEC (23.0-38.0) VBG Lactic Acid 1.7 mmol/L mmol/L (0.7-2.1) Sodium Potassium Chloride Carbon Dioxide Anion Gap BUN Creatinine Estimated GFR Glucose Calcium Total Bilirubin Conjugated Bilirubin Unconjugated Bilirubin Urine Color Urine Appearance Urine pH Ur Specific [place] Urine Protein Urine Ketones Urine Blood Urine Nitrate Urine Bilirubin Urine Urobilinogen Ur Leukocyte Esterase Urine RBC Urine WBC Ur Epithelial Cells Urine Bacteria Hyaline Casts Urine Mucus Urine Glucose Medications Given: Discontinued Medications Hydromorphone HCl (Dilaudid) 1 mg IVP EDNOW ONE Stop: 05/01/17 12:32 Last Admin: 05/01/17 13:21 Dose: 1 mg Sodium Chloride (Ns) 2,600 mls @ 5,200 mls/hr 30 ml/kg infuse over 30 min ( 2600 ml) IV EDNOW ONE PRN Reason: Protocol Stop: 05/01/17 11:41 Last Admin: 05/01/17 11:22 Dose: 2,600 mls Vancomycin/Sodium Chloride (Vancomycin 1 Gm (Premix)) 250 mls @ 250 mls/hr IV EDNOW ONE PRN Reason: Protocol Stop: 05/01/17 13:11 Last Admin: 05/01/17 13:21 Dose: 250 mls Departure - Departure Disposition: [facility] Inpatient Acute Clinical Impression: Hyponatremia Sepsis Qualifiers: Sepsis type: sepsis due to unspecified organism Qualified Code(s): A41.9 - Sepsis, unspecified organism Osteomyelitis Qualifiers: Osteomyelitis type: unspecified type Osteomyelitis location: shoulder Laterality: right Qualified Code(s): M86.9 - Osteomyelitis, unspecified Condition: Fair
[2017-05-01 11:36] LABS: % IMMATURE GRANULYOCYTES 1.1 % (0.0-1.1); ABSOLUTE IMMATURE GRANULOCYTES 0.15 10^3/uL (0.00-0.10); ADD DIFF? NO; ADD MORPH? NO; ADD SCAN? NO; ATYPICAL LYMPHOCYTE FLAG 0 (0-99); FRAGMENT RBC FLAG 0 (0-99); HEMATOCRIT 34.9 % (40.0-51.0); HEMOGLOBIN 11.8 g/dL (13.7-17.5); LEFT SHIFT FLG 30 (0-99); LIPEMIA HEMOLYSIS FLAG 90 (0-99); MEAN CELL HEMOGLOBIN 27.3 pg (27.9-34.1); MEAN CELL HEMOGLOBIN CONCENTR. 33.8 g/dL (32.4-36.7); MEAN CELL VOLUME 80.6 fL (81.5-99.8); MEAN PLATELET VOLUME 10.2 fL (8.7-11.7); PLATELET CLUMPS FLAG 0 (0-99); PLATELET COUNT 197 10^3/uL (150-400); RED BLOOD CELL COUNT 4.33 10^6/uL (4.40-6.38); RED CELL DISTRIBUTION WIDTH 12.9 % (11.5-15.2)
[2017-05-01 11:47] LABS: APTT 35.8 SEC (23.0-38.0); INR 1.49 (0.83-1.16)
[2017-05-01 11:53] LABS: ANION GAP 9 mEq/L (8-16); BILIRUBIN,TOTAL 2.2 mg/dL (0.1-1.4); CARBON DIOXIDE 22 mEq/l (22-31); CHLORIDE 89 mEq/L (97-110); CREATININE 0.8 mg/dL (0.7-1.3); GLOMERULAR FILTRATION RATE > 60; GLUCOSE 170 mg/dL (70-100); POTASSIUM 5.2 mEq/L (3.5-5.2); SODIUM 120 mEq/L (134-144)
[2017-05-01 12:07] LABS: BILIRUBIN-CONJUGATED 1.5 mg/dL (0.0-0.5); BILIRUBIN-UNCONJUGATED 0.7 mg/dL (0.0-1.1)
[2017-05-01] MEDS ORDERED: GADOBUTROL 10 ML VIAL IVP ONE (12:08)
[2017-05-01] MEDS ORDERED: VANCOMYCIN HCL/NORMAL SALINE 250 ML IV ONE (12:12)
[2017-05-01] MEDS ORDERED: HYDROmorphONE/DILAUDID 1 MG/ML INJ IVP ONE (12:31)
[2017-05-01 13:00] LABS: COLOR AMBER; LEUKOCYTE ESTERASE,URINE NEGATIVE (NEGATIVE); NITRITE,URINE NEGATIVE (NEGATIVE)
[2017-05-01 13:06] LABS: BACTERIA TRACE /hpf (NONE SEEN); HYALINE CASTS 15-25 /lpf (0-1); MUCUS 1+ /lpf (NONE-1+)
[2017-05-01] MEDS ORDERED: ONDANSETRON 4 MG/2 ML VIAL IVP PRN (13:58)
[2017-05-01] MEDS ORDERED: ZOLPIDEM TARTRATE 5 MG TAB PO PRN (13:58)
[2017-05-01] MEDS ORDERED: CALCIUM CARBONATE 500 MG CHEWABLE TAB PO PRN (16:10)
[2017-05-01] MEDS ORDERED: MAGNESIUM HYDROXIDE 30 ML UDCUP PO PRN (16:10)
[2017-05-01] MEDS ORDERED: DICLOFENAC SODIUM 1% 100 GM GEL TP PRN (16:10)
--- NOTE | 2017-05-01 17:07 | PDGENHP ---
History and Physical History and Physical: HISTORY AND PHYSICAL CC: Right shoulder pain HISTORY: This patient who is blind and lives at a local nursing facility, lost balance around 2-3 weeks ago striking his right shoulder against a wall. He had some pain in the shoulder at that time and was seen in the emergency room but there was no bony injury worsening of a serious problem closed infection. Since then his shoulder pain has gradually gotten worse particularly over the last few days. Today he has had some chills and sweats. He was seen in the office of Dr. hernandez and was felt to have a septic shoulder and referred to the emergency room for further assessment and to prepare for planned washout surgery. Apparently there were no beds available for direct admission. In the ER the patient did have an MRI done showing evidence of fluid collection. Patient has noticed decreased range of motion of the shoulder ROS: Chronic blindness in some chronic arthritic pain. A comprehensive 10 system review revealed no other significant findings PAST MEDICAL HISTORY: Chronic blindness Diabetes mellitus Alcoholic cirrhosis, sober from alcohol for 7 years Chronic pain syndrome Bipolar disorder FAMILY MEDICAL HISTORY: No pertinent or other significant family medical history he is aware of SOCIAL HISTORY: Lives at [facility] Former drinker sober x7 years No strokes MEDICATIONS: The patients list has been reconciled by our clinical pharmacist in the EMR. I have reviewed the list and ordered appropriate medicines. He is allergic to penicillin PHYSICAL EXAMINATION: Vital Signs: Stable without fever Examination: General: alert, oriented, good mentation, looks mildly to moderately uncomfortable Skin: warm, dry, good color, no rash; good capillary refill HEENT: normal Neck: no mass or jvd Resps: relaxed Lungs: clear breath sounds Heart: regular, no murmur Abdomen: soft, nondistended, nontender, +BS, no mass Upper Extremities: Left is normal; the right shoulder has an obvious fluctuant fluid collection superiorly just behind the distal clavicle. This is moderately tender and is a little warm and red. At the anterior glenohumeral area there is remarkable tenderness and also some palpable fluid. He has greatly diminished range of motion due to pain. I am not able to find any direct evidence of fracture Lower Extremities: no edema, warm No Bleeding or bruising Neurologic: Blind both eyes; normal speech/language, normal naturopathic physician, no focal weakness IV site: looks normal LABORATORY DATA: Markedly elevated white blood cell count with predominance of neutrophils Hemoglobin 11.8 with microcytosis Sodium 120 glucose 170 RADIOLOGY STUDIES: MRI scan of the shoulder in the ER, I reviewed the images and my interpretation : Obvious large fluid collection around the shoulder but not involving the glenohumeral joint synovial space, it does appear to involve the subacromial bursa. There is bone marrow edema of the distal clavicle suggesting osteomyelitis there ASSESSMENT: 1- acute osteomyelitis and abscess of the right shoulder region and distal clavicle. Staff is likely but other organisms possible. I have obtained a small sample of fluid from the abscess by needle aspiration and sent to the lab for culture. However he will need surgical evacuation and possibly bone biopsy. He will need a prolonged course of IV antibiotic therapy. Inpatient admission is indicated 2. Hyponatremia in what appears to be a at least nearly euvolemic state, uncertain etiology, no diuretics. A small amount of this would be explained by his hyperglycemia but he still quite hyponatremic despite that. I cannot get any history of gastrointestinal losses from him. He does have a history of bipolar disorder on have to watch to make sure that he does not seem to have any degree of excessive water intake. I will get a urine sodium and fractional excretion of sodium to trying to determine better the etiology. It is possible this is an SIADH related to his acute illness. The last sodium I have available is from August this year normal at 144. This will need some correction before proceeding to surgery. 3. Diabetes mellitus on chronic insulin with reasonable sugar control at this time 4. Microcytic anemia with both the anemia and microcytosis new since August of this year. Will need to check iron levels and he may need other workup such as GI evaluation at some point 5. Blindness, chronic 6. Bipolar disorder, appears stable at this time on chronic medication PREOPERATIVE RISK ASSESSMENT: At this time his hyponatremia is the main issue in terms of getting him prepared to go to the OR. I would like to see this sodium come up into a somewhat better range. Otherwise there are no medical issues right now that need any stabilizing or further diagnostic assessment before safely proceeding to anesthesia and surgery. If he suddenly started to develop severe sepsis or septic shock we could probably go ahead despite the low sodium. The this as not an issue at the present time. PLANS: Vancomycin was started in the ER will continue that I have sent cultures from his abscess to the micro lab NPO after midnight Infectious disease consult Oral fluid restriction and will give some sodium supplement right now orally, check urine sodium levels, and follow sodium very closely Dr. Juan plans to take him to the OR for washout sounds like probably tomorrow Iron studies for his anemia; may need eventual GI workup and may need iron replacement, would avoid nonsteroidal anti-inflammatory medicines as possible as he could have ulcer Follow sugars closely and manage diabetes appropriately DVT prophylaxis measures are order Fall risk precautions with his blindness I have reviewed the patient's case in detail with Dr. Collins I have reviewed the patient's past medical records as part of this assessment, including previous hospital admission records and outpatient laboratory data
[2017-05-01] MEDS: SODIUM CHLORIDE 1,000 MG TAB PO SCH (18:22)
[2017-05-01] MEDS: INSULIN LISPRO 100 UNIT/ML SC SCH (18:23)
[2017-05-01] MEDS: oxyCODONE IR 5 MG TAB PO PRN (20:41)
[2017-05-01] MEDS: PANTOPRAZOLE SODIUM 40 MG TAB PO SCH (20:42)
[2017-05-01] MEDS ORDERED: NON-FORMULARY NEW DRUG (Insulin Detemir [Levemir] 30 UNIT) SQ SCH (21:00)
[2017-05-01] MEDS ORDERED: INSULIN ASPART 4 UNIT SQ SCH (21:00)
[2017-05-01] MEDS: INSULIN GLARGINE 100 UNITS/ML SYRINGE SC SCH (21:58)
[2017-05-01] MEDS: GABAPENTIN 300 MG CAP PO SCH (21:58)
[2017-05-01] MEDS: BRIMONIDINE/TIMOLOL 5 ML OPHT.BTL RTEYE SCH (21:59)
[2017-05-01] MEDS: LATANOPROST 0.005% 2.5 ML OPHT DROPS RTEYE SCH (21:59)
--- NOTE | 2017-05-01 22:17 | SOAPPROG ---
SOAP Progress Note Assessment/Plan: Assessment: HPI: 62 year old male with a multi-lobulated abscess overlying his right shoulder with lateral clavicle, acromion, and scapular spine involvement as well as subacromial space involvement after injury around 04/10/17. PE: RUE: Diffuse pitting edema and mild overlying erythema on right shoulder +D, B, T, ECRL, ECRB, EPL, FPL, FDS, FDP +A / M / R / U SILT 2+ radial and ulnar pulses Right shoulder MRI: multi-lobulated abscess overlying his right shoulder with lateral clavicle, acromion, and scapular spine involvement as well as subacromial space involvement Assessment and Plan: 62 year old male with a multi-lobulated abscess overlying his right shoulder with lateral clavicle, acromion, and scapular spine involvement as well as subacromial space involvement after injury around 04/10/17. -I have discussed with the patient the risks, benefits, alternatives, and complications associated with non-operative and operative (specifically, right shoulder irrigation and debridement with partial clavicle, acromion, and scapular spine excision) forms of treatment -He fully understands the risks, benefits, alternative and complications associated with both forms of treatment and he wishes to proceed with operative intervention -He has signed the informed consent form for surgery and surgery will be performed on , 05/02/17 at 5:00 PM -NPO after midnight tonight in preparation for surgery tomorrow 05/01/17 22:12 Objective: Vital Signs Temp Pulse Resp BP Pulse Ox 37.0 C 111 H 18 122/70 H 92 05/01/17 19:21 05/01/17 19:21 05/01/17 19:21 05/01/17 19:21 05/01/17 19:21 Microbiology 05/01/17 16:46 Gram Stain - Final Shoulder - Aspirate 04/30/17 05/01/17 05/02/17 05:59 05:59 05:59 Intake Total 1450 Output Total 200 Balance 1250 PT 18.0 SEC (12.0-15.0) H 05/01/17 11:20 INR 1.49 (0.83-1.16) H 05/01/17 11:20 ICD10 Worksheet Patient Problems: Problems Problem Status Onset Hyponatremia Acute Osteomyelitis Acute Sepsis Acute Altered mental status Acute Head injury Acute Scalp laceration Acute
[2017-05-02] MEDS: oxyCODONE IR 5 MG TAB PO PRN ×4 (00:36→12:35)
[2017-05-02] MEDS: VANCOMYCIN 1.25 GM in D5W 250 ML IV SCH ×2 (00:38→13:51)
[2017-05-02] MEDS: ACETAMINOPHEN 325 MG TAB PO PRN (08:02)
[2017-05-02] MEDS: SODIUM CHLORIDE 1,000 MG TAB PO SCH ×2 (08:02→22:23)
[2017-05-02] MEDS: INSULIN LISPRO 100 UNIT/ML SC SCH ×2 (08:04→22:23)
[2017-05-02 08:42] LABS: % IMMATURE GRANULYOCYTES 0.7 % (0.0-1.1); ABSOLUTE IMMATURE GRANULOCYTES 0.08 10^3/uL (0.00-0.10); ADD DIFF? NO; ADD MORPH? NO; ADD SCAN? NO; ATYPICAL LYMPHOCYTE FLAG 0 (0-99); FRAGMENT RBC FLAG 0 (0-99); HEMATOCRIT 34.6 % (40.0-51.0); HEMOGLOBIN 11.5 g/dL (13.7-17.5); LEFT SHIFT FLG 30 (0-99); LIPEMIA HEMOLYSIS FLAG 80 (0-99); MEAN CELL HEMOGLOBIN 27.1 pg (27.9-34.1); MEAN CELL HEMOGLOBIN CONCENTR. 33.2 g/dL (32.4-36.7); MEAN CELL VOLUME 81.6 fL (81.5-99.8); PLATELET CLUMPS FLAG 0 (0-99); PLATELET COUNT 148 10^3/uL (150-400); RED BLOOD CELL COUNT 4.24 10^6/uL (4.40-6.38)
[2017-05-02 08:52] LABS: ALANINE AMINOTRANSFERASE 41 IU/L (21-72); ALBUMIN 2.2 g/dL (3.5-5.0); ALKALINE PHOSPHATASE 180 IU/L (38-126); ANION GAP 5 mEq/L (8-16); ASPARTATE AMINOTRANSFERASE 32 IU/L (17-59); BILIRUBIN,TOTAL 2.2 mg/dL (0.1-1.4); CARBON DIOXIDE 22 mEq/l (22-31); CHLORIDE 93 mEq/L (97-110); CREATININE 0.7 mg/dL (0.7-1.3); GLOMERULAR FILTRATION RATE > 60; GLUCOSE 145 mg/dL (70-100); POTASSIUM 4.7 mEq/L (3.5-5.2); SODIUM 120 mEq/L (134-144); TOTAL PROTEIN 6.3 g/dL (6.3-8.2)
[2017-05-02 09:02] LABS: % SATURATION 14 % (20-55); TOTAL IRON BINDING CAPACITY 195 ug/dL (260-490)
[2017-05-02] MEDS: ENOXAPARIN 40 MG/0.4 ML SYR SC SCH (09:11)
[2017-05-02] MEDS: GABAPENTIN 300 MG CAP PO SCH ×2 (09:11→22:38)
[2017-05-02] MEDS: QUEtiapine FUMARATE 100 MG TAB PO SCH ×3 (09:11→22:24)
[2017-05-02] MEDS: INSULIN GLARGINE 100 UNITS/ML SYRINGE SC SCH ×2 (09:16→22:49)
[2017-05-02] MEDS ORDERED: SODIUM Cl 3% 500 ML IV SCH (09:30)
[2017-05-02] MEDS: BRIMONIDINE/TIMOLOL 5 ML OPHT.BTL RTEYE SCH ×2 (09:38→21:53)
[2017-05-02 11:00] LABS: BILIRUBIN-CONJUGATED 0.1 mg/dL (0.0-0.5); BILIRUBIN-UNCONJUGATED 0.6 mg/dL (0.0-1.1)
[2017-05-02 13:35] LABS: ANION GAP 7 mEq/L (8-16); CALCIUM 7.7 mg/dL (8.5-10.4); CARBON DIOXIDE 24 mEq/l (22-31); CHLORIDE 95 mEq/L (97-110); CREATININE 0.8 mg/dL (0.7-1.3); GLOMERULAR FILTRATION RATE > 60; GLUCOSE 125 mg/dL (70-100); POTASSIUM 4.7 mEq/L (3.5-5.2); SODIUM 126 mEq/L (134-144)
[2017-05-02] MEDS ORDERED: SODIUM CHLORIDE 1,000 MG TAB PO ONE (14:11)
[2017-05-02] MEDS ORDERED: HYDROmorphONE/DILAUDID 1 MG/ML INJ IVP PRN ×3 (14:24→21:41)
[2017-05-02] MEDS ORDERED: LIDOCAINE 1% 300 MG/30 ML SDV ONE (15:42)
[2017-05-02] MEDS ORDERED: BUPIVACAINE 0.5% 30 ML SDV ONE (15:42)
--- NOTE | 2017-05-02 16:00 | HOSPPROG ---
Hospitalist Progress Note Assessment/Plan: DIANGOSES: 1- acute osteomyelitis and abscess of the right shoulder region and distal clavicle; Streptococcal bacteremia and also growing from shoulder. Staff is likely but other organisms possible. I have obtained a small sample of fluid from the abscess by needle aspiration and sent to the lab for culture. However he will need surgical evacuation and possibly bone biopsy. He will need a prolonged course of IV antibiotic therapy. Inpatient admission is indicated 2. Hyponatremia, suspect SIADH in what appears to be a at least nearly euvolemic state, uncertain etiology, no diuretics. 3. Diabetes mellitus on chronic insulin with reasonable sugar control at this time 4. Microcytic anemia with both the anemia and microcytosis new since August of this year. will give some iron, may need GI evaluation at some point as outpt 5. Blindness, chronic 6. Bipolar disorder, appears stable at this time on chronic medication He remains stable in terms of the infection, but w bacteremia we need to press on with abx and surgical clean out. His sodium is due to SIADH did not respond overnight to oral fluid restriction and oral sodium. I suspect this is due to IV fluids given in ER as well as his IV vanco which comes in D5. I have given him some hypertonic saline today and the sodium now better, and I feel we can procede with surgery at this time. I have reviewed with Dr Juan and with Dr Saldana today. SUBJECTIVE: still w a lot of pain at shoulder no other symptoms besides feeling hungry OBJECTIVE: vitals: no fever exam: alert oriented, relaxed but does look uncomfortable skin warm dry no change in appearance of shoulder resps easy lungs clear heart reg abd soft no edema good distal cap refill Na this am still 120 but up to 126 at mid day renal fxn good wbc still high iron studies with low binding sat but high ferritin - ferritin high from infection; given low MCV and low iron binding, he likely does have some iron deficiency and may need gi eval in future. Would be good to recheck once infection is better but will give some iron now Objective: Vital Signs Temp Pulse Resp BP Pulse Ox 37.1 C 100 18 120/71 94 05/02/17 15:36 05/02/17 15:36 05/02/17 15:36 05/02/17 15:36 05/02/17 15:36 Microbiology 05/01/17 16:46 Gram Stain - Final Shoulder - Aspirate Laboratory Results 05/02/17 08:32 05/02/17 13:05 05/01/17 05/02/17 05/03/17 06:59 06:59 06:59 Intake Total 1950 Output Total 800 500 Balance 1150 -500 PT 18.0 SEC (12.0-15.0) H 05/01/17 11:20 INR 1.49 (0.83-1.16) H 05/01/17 11:20 - Time Spent With Patient Time Spent with Patient: greater than 35 minutes Time Spent with Patient: Greater than 35 minutes spent on this patients care, greater than 50% of time spent counseling, educating, and coordinating care regarding the above mentioned plan. ICD10 Worksheet Patient Problems: Problems Problem Status Onset Hyponatremia Acute Osteomyelitis Acute Sepsis Acute Altered mental status Acute Head injury Acute Scalp laceration Acute
--- NOTE | 2017-05-02 16:08 | PDMN ---
Medical Necessity Medical necessity: est los>2mn for acute osteomyelitis and abscess R shoulder/ distal clavicle r/t fall 2-3 wks ago, and hyponatremia; for washout when Na+ improved; requires LT IV abx; comorbid DM, alcoholic cirrhosis, bipolar disorder, anemia; per order and H&P 05/01/17
[2017-05-02] MEDS ORDERED: ALTEPLASE 2 MG VIAL IVP PRN (16:55)
[2017-05-02] MEDS ORDERED: PROPOFOL 200 MG/20 ML VIAL ONE (17:01)
[2017-05-02] MEDS ORDERED: fentaNYL 100 MCG/2 ML INJ ONE (17:02)
[2017-05-02] MEDS ORDERED: ONDANSETRON 4 MG/2 ML VIAL ONE (17:04)
[2017-05-02] MEDS ORDERED: BACITRACIN 50,000 UNITS/10 ML SYR IRR ONE ×4 (17:06→19:33)
[2017-05-02] MEDS ORDERED: POLYMYXIN B SULFATE 500,000 UNIT/10 ML SYR IRR ONE ×4 (17:06→19:33)
[2017-05-02] MEDS ORDERED: VASOPRESSIN 20 UNIT/ML VIAL ONE ×2 (17:08→19:08)
[2017-05-02] MEDS ORDERED: HYDROmorphONE/DILAUDID 2 MG/ML INJ ONE (17:39)
[2017-05-02 18:00] LABS: ANION GAP 7 mEq/L (8-16); CALCIUM 7.9 mg/dL (8.5-10.4); CARBON DIOXIDE 21 mEq/l (22-31); CHLORIDE 97 mEq/L (97-110); CREATININE 0.7 mg/dL (0.7-1.3); GLOMERULAR FILTRATION RATE > 60; GLUCOSE 140 mg/dL (70-100); POTASSIUM 4.9 mEq/L (3.5-5.2); SODIUM 125 mEq/L (134-144); SPECIMEN HEMOLYSIS 143
[2017-05-02] MEDS ORDERED: ONDANSETRON 4 MG/2 ML VIAL IVP PRN (18:18)
[2017-05-02] MEDS ORDERED: fentaNYL 100 MCG/2 ML INJ IVP PRN ×2 (18:18→21:41)
[2017-05-02] MEDS ORDERED: NALOXONE HCL 0.4 MG/ML INJ IVP PRN ×2 (18:18→21:41)
[2017-05-02] MEDS ORDERED: ALBUTEROL 3 ML DEYVIAL IH PRN ×2 (18:18→21:41)
--- NOTE | 2017-05-02 18:18 | PDANEPAE ---
ANE History of Present Illness EMERGENT Right Shoulder I&D ANE Past Medical History - Cardiovascular History Hx Hypertension: Yes - Pulmonary History Hx Oxygen in Use at Home: No Hx Sleep Apnea: No Sleep Apnea Screening Result - Last Documented: Negative - Endocrine History Hx Diabetes: Yes - Renal History Hx Renal Disorders: No Renal History Comment: Severe Hyponatremia Na-120, improved to 126 with fluid restriction and 3% NaCl - Chronic Pain History Chronic Pain: Yes (neuropathy) ANE Review of Systems Review of Systems: ANE Patient History - Allergies Allergies/Adverse Reactions: Penicillins Allergy (Intermediate, Verified 05/01/17 10:49) Hives - Home Medications Home Medications: Brimonidine/Timolol [Combigan (*)] 1 drop RTEYE BID 09/09/16 [Last Taken ] Calcium Carbonate [Tums 500MG (*)] 1,000 mg PO Q12H PRN 09/09/16 [Last Taken Unknown] Cholecalciferol Vit D3 [Vitamin D3 (*)] 5,000 units PO MO 09/09/16 [Last Taken 09/03/16] Latanoprost 0.005% [Xalatan 0.005% (*)] 1 drops RTEYE HS 09/09/16 [Last Taken ] Magnesium Hydroxide [Milk of Magnesia] 30 ml PO DAILY PRN 09/09/16 [Last Taken Unknown] Omeprazole [Prilosec 20 mg] 20 mg PO HS 09/09/16 [Last Taken 09/09/16] Acetaminophen [Tylenol 325mg (*)] 650 mg PO Q6HRS PRN 05/01/17 [Last Taken Unknown] Diclofenac Sodium 1% [Voltaren Gel (*)] 1 maxwell TP QID PRN 05/01/17 [Last Taken Unknown] Gabapentin [Neurontin 300 MG (*)] 300 mg PO TID 05/01/17 [Last Taken Unknown] Insulin Aspart [Novolog Flexpen] 4 unit SQ BID 05/01/17 [Last Taken Unknown] Insulin Detemir [Levemir] 30 unit SQ BID 05/01/17 [Last Taken Unknown] Ondansetron Odt [Zofran Odt 4 mg (*)] 4 mg PO Q6HRS PRN 05/01/17 [Last Taken Unknown] QUEtiapine FUMARATE [Seroquel 100 mg (*)] 100 mg PO DAILY 05/01/17 [Last Taken Unknown] oxyCODONE IR [Oxycodone Ir (*)] 5 mg PO Q4HRS PRN 05/01/17 [Last Taken Unknown] - NPO status NPO Since - Liquids (Date): 05/02/17 NPO Since - Liquids (Time): 00:00 NPO Since - Solids (Date): 05/02/17 NPO Since - Solids (Time): 00:00 - Smoking Hx Smoking Status: Current some day smoker - Alcohol Use Alcohol Use: Heavy ANE Labs/Vital Signs - Labs Result Diagrams: 05/02/17 08:32 05/02/17 17:35 - Vital Signs Blood Pressure: 120/71 Heart Rate: 100 Respiratory Rate: 18 O2 Sat (%): 94 Height: 165.1 cm Weight: 87.543 kg ANE Physical Exam - Airway Neck exam: FROM Mallampati Score: Class 2 Mouth exam: poor dentition - Pulmonary Pulmonary: clear to auscultation - Cardiovascular Cardiovascular: regular rate and rhythym - ASA Status ASA Status: III, E ANE Anesthesia Plan Anesthesia Plan: GA w LMA (Emergently proceeding with massive Right Shoulder abscess despite Na 120->126 as it could be due to the infection.)
[2017-05-02] MEDS ORDERED: VANCOMYCIN HCL/NORMAL SALINE 250 ML IV ONE (19:00)
--- NOTE | 2017-05-02 20:49 | POSTOPPROG ---
Post Op Note Date of Operation: 05/02/17 Surgeon: Schuyler Dunlap Fish Inspector: Alysha Bell PA-C Anesthesia: GET(General Endotracheal) Pre-op Diagnosis: Right shoulder abscess, osteomyletis Post-op Diagnosis: Right shoulder abscess, osteomyletis Procedure: Right shoulder abscess I&D, distal clavicle excision, acromionectomy Inf/Abcess present in the surg proc area at time of surgery?: Yes Depth: Deep Incisional (Fascial) EBL: 50-100 Drains: Horace Jarquin (3 Horace Jarquin drains placed)
--- NOTE | 2017-05-02 20:52 | SOAPPROG ---
SOAP Progress Note Assessment/Plan: Assessment: Pt is POD#0 from right shoulder abscess incision and drainage, distal clavicle excision, acromionectomy. PE: Dressing clean, dry, intact. Three drains in place Pt NV intact RUE Plan: 1. Dressing to be kept CDI. Reinforce if needed, however, do not remove dressing. Dressings will be changed by Alysha Bell PA-C or Dr. Dunlap. 2. Consult Infectious disease for antibiotic management 3. WBAT RUE 05/02/17 20:49 Objective: Vital Signs Temp Pulse Resp BP Pulse Ox 37.1 C 100 18 120/71 94 05/02/17 16:28 05/02/17 18:18 05/02/17 18:18 05/02/17 18:18 05/02/17 18:18 Microbiology 05/02/17 17:54 Mycobacterial Smear (JOSE A) - Final Shoulder - Eswab Mycobacterial Culture - Final 05/02/17 17:54 Mycobacterial Smear (JOSE A) - Final Shoulder - Eswab Mycobacterial Culture - Final 05/02/17 17:54 Mycobacterial Smear (JOSE A) - Final Shoulder - Eswab Mycobacterial Culture - Final 05/02/17 17:54 Mycobacterial Smear (JOSE A) - Final Shoulder - Eswab Mycobacterial Culture - Final 05/02/17 17:54 Mycobacterial Smear (JOSE A) - Final Shoulder - Eswab Mycobacterial Culture - Final 05/02/17 17:54 Mycobacterial Smear (JOSE A) - Final Shoulder - Eswab Mycobacterial Culture - Final 05/01/17 16:46 Gram Stain - Final Shoulder - Aspirate Laboratory Results 05/02/17 08:32 05/02/17 17:35 05/01/17 05/02/17 05/03/17 05:59 05:59 05:59 Intake Total 1950 Output Total 800 500 Balance 1150 -500 PT 18.0 SEC (12.0-15.0) H 05/01/17 11:20 INR 1.49 (0.83-1.16) H 05/01/17 11:20 ICD10 Worksheet Patient Problems: Problems Problem Status Onset Hyponatremia Acute Osteomyelitis Acute Sepsis Acute Altered mental status Acute Head injury Acute Scalp laceration Acute
--- NOTE | 2017-05-02 21:21 | POSTANESTH ---
Post Anesthetic Evaluation Cardiovascular Status: Normal, Stable Respiratory Status: Normal, Stable Level of Consciousness/Mental Status: Can Participate in Eval, Mildly Sleepy, Arousable Pain Control: Adequate, Prn Tx Ordered Nausea/Vomiting Control: Adequate, Prn Tx Ordered Complications Possibly Related to Anesthesia: None Noted (Right IJ placed under ultrasound guidance, no complications, x-ray in ICU)
[2017-05-02] MEDS: LATANOPROST 0.005% 2.5 ML OPHT DROPS RTEYE SCH (21:52)
[2017-05-02] MEDS ORDERED: NOREPINEPHRINE BITARTRATE 16 MG in NS 250 ML IV SCH (22:00)
[2017-05-02] MEDS: PANTOPRAZOLE SODIUM 40 MG TAB PO SCH (22:23)
[2017-05-02] MEDS: ceFAZolin 2 GM/DEXTROSE 100 ML IV SCH (22:49)
[2017-05-02 22:53] LABS: ANION GAP 9 mEq/L (8-16); CALCIUM 7.3 mg/dL (8.5-10.4); CARBON DIOXIDE 19 mEq/l (22-31); CHLORIDE 96 mEq/L (97-110); GLOMERULAR FILTRATION RATE > 60; GLUCOSE 200 mg/dL (70-100); POTASSIUM 5.5 mEq/L (3.5-5.2); SODIUM 124 mEq/L (134-144)
[2017-05-03 00:53] LABS: ANION GAP 8 mEq/L (8-16); CALCIUM 7.3 mg/dL (8.5-10.4); CARBON DIOXIDE 20 mEq/l (22-31); CHLORIDE 98 mEq/L (97-110); CREATININE 1.1 mg/dL (0.7-1.3); GLOMERULAR FILTRATION RATE > 60; GLUCOSE 229 mg/dL (70-100); POTASSIUM 5.5 mEq/L (3.5-5.2); SODIUM 126 mEq/L (134-144)
[2017-05-03] MEDS: GABAPENTIN 300 MG CAP PO SCH ×4 (01:53→20:40)
--- NOTE | 2017-05-03 04:35 | GCON ---
[f rep st] CONSULTATION INPATIENT INFECTIOUS DISEASE CONSULTATION REFERRING PHYSICIAN: Vidal Shay MD REASON FOR REFERRAL: Right shoulder osteomyelitis and abscess. HISTORY OF PRESENT ILLNESS: Patient is a 62-year-old male, who is a resident at [facility]. He i s blind and relates that numerous times over the last few months he has struck his right shoulder whi le ambulating around his room. Patient presented to our emergency room on 05/01/2017 with the compla int of shoulder pain. Patient was seen in the emergency room 3 weeks prior to that after another inc ident where he hit his shoulder on the wall in the prison. He had an x-ray at that point at [facility] that was negative. Patient followed up with Dr. Dunlap in his orthopedic office, and the x-rays from that visit showed some lucency in the bone that was possible osteomyelitis. As part of the evaluation from the emergency room, he underwent an upper extremity MRI with gadolinium that s howed significant cortical destruction of the lateral end of the clavicle, as well as the acromion an d scapular spine. It also showed an extensive soft tissue abscess outside the joint capsule. Aspira tion of this fluid is growing group B Streptococcus. Patient was placed on vancomycin and admitted. Currently, he is resting comfortably in his hospital room. He does not look toxic. His shoulder is red and swollen. PAST MEDICAL HISTORY: 1. Acquired blindness bilaterally. 2. Diabetes mellitus. 3. History of alcohol abuse with cirrhosis. 4. Chronic pain syndrome. 5. Bipolar disorder. PAST SURGICAL HISTORY: Multiple eye surgeries. ANTIBIOTICS: Vancomycin. ALLERGIES: Patient is allergic to penicillin. He had hives reportedly as a child. SOCIAL HISTORY: Patient lives at [facility]. Patient has been abstinent from alcohol for over 7 years. FAMILY HISTORY: Reviewed but noncontributory. REVIEW OF SYSTEMS: Other than that detailed above in the History of Present Illness, a comprehensive 10-system review is negative. PHYSICAL EXAMINATION: VITAL SIGNS: Temperature maximum is 37.2, temp current is 37.1, heart rate is 100, respiratory rate is 18, blood pressure is 120/71. GENERAL: Patient is a well-formed, well-nou rished, older male, in no acute distress. He is not toxic in appearance. He is alert and oriented x 3. He has a pleasant demeanor. HEENT: Normocephalic for age. Atraumatic. No scleral icterus. No oral lesion or drainage from the nares. Eyes: Lids and conjunctivae are within normal limits. Patient has an opacifying cataract in the left eye. Otherwise, pupils are equal and round. NECK: Supple. No meningismus. LUNGS: Clear to auscultation bilaterally with good effort. HEART: Regular rate and rhythm. Borderline tachycardic. No murmur, rub, or gallop noted. ABDOMEN: Soft. Nontender. No masses. SKIN: Warm and dry to the touch. There is a small erythematous macular ra sh that is somewhat confluent over the superior and posterior aspect of the right shoulder over the a cromion. It is warm to touch. It is also fluctuant. MUSCULOSKELETAL: No muscle belly tenderness i s noted. Patient does have significant tenderness to the rotation or movement through the shoulder j oint on the right side. NEURO: Cranial nerves 2-12 seem to be intact. Peripheral sensation is decr eased in lower extremities. LABORATORY DATA: Patient has a CBC dated 05/02/2017, shows a white blood cell count of 11.4, hemoglo bin 11.5, hematocrit of 34.6, platelet count of 148. Differential is left shifted with 84% segmented neutrophils. Serum chemistries on 05/02/2017 show sodium of 125, potassium of 4.9, chloride of 97, bicarbonate of 21, BUN of 15, creatinine of 0.7. MICROBIOLOGIC DATA: Patient has blood cultures dated 05/01/2017 which is growing group B strep. Kayla ulder aspirate from 05/01/2017 is also growing group B strep. ASSESSMENT: Right shoulder abscess and osteomyelitis of the clavicle and acromion. Patient will go to surgery later this evening with Dr. Schuyler Dunlap for debridement. He is currently on vancomycin. Will be comfortable with changing him to cefazolin. Will watch for any rash, but the cross-allerge nicity is very small between the penicillins and cephalosporins. Suspect he will need a 6-week cours e of treatment following debridement. PLAN: 1. Antibiotic change as described above. 2. Follow up with operative findings. 3. Follow clinical course. /[id number]/MODL
[2017-05-03 05:14] LABS: ALANINE AMINOTRANSFERASE 28 IU/L (21-72); ALBUMIN 1.7 g/dL (3.5-5.0); ALKALINE PHOSPHATASE 119 IU/L (38-126); ANION GAP 6 mEq/L (8-16); ASPARTATE AMINOTRANSFERASE 21 IU/L (17-59); BILIRUBIN,TOTAL 3.3 mg/dL (0.1-1.4); CALCIUM 7.1 mg/dL (8.5-10.4); CARBON DIOXIDE 20 mEq/l (22-31); CHLORIDE 98 mEq/L (97-110); CREATININE 1.5 mg/dL (0.7-1.3); GLOMERULAR FILTRATION RATE 47; GLUCOSE 261 mg/dL (70-100); POTASSIUM 5.5 mEq/L (3.5-5.2); SODIUM 124 mEq/L (134-144); TOTAL PROTEIN 4.8 g/dL (6.3-8.2)
[2017-05-03 05:40] LABS: BILIRUBIN-CONJUGATED 2.8 mg/dL (0.0-0.5); BILIRUBIN-UNCONJUGATED 0.5 mg/dL (0.0-1.1)
[2017-05-03] MEDS: ceFAZolin 2 GM/DEXTROSE 100 ML IV SCH ×3 (06:49→20:36)
[2017-05-03] MEDS: HYDROmorphONE/DILAUDID 1 MG/ML INJ IVP PRN ×2 (08:00→10:49)
[2017-05-03] MEDS: INSULIN LISPRO 100 UNIT/ML SC SCH (08:00)
[2017-05-03] MEDS: BRIMONIDINE/TIMOLOL 5 ML OPHT.BTL RTEYE SCH ×2 (08:01→20:40)
[2017-05-03] MEDS: SODIUM CHLORIDE 1,000 MG TAB PO SCH ×2 (08:01→18:00)
[2017-05-03] MEDS: INSULIN GLARGINE 100 UNITS/ML SYRINGE SC SCH (08:01)
--- NOTE | 2017-05-03 09:14 | PCMIDPN ---
Assessment/Plan: # Sepsis - Hemodynamics much improved # GBS bacteremia and Acute osteomyelitis of distal clavicle and massive abscesses of the right shoulder region s/p I&D --continue cefazolin, will need prolonged therapy --repeat blood cx tomorrow to assess for clearance of GBS # ARF, CrCL 36 -- adjust dose to 2gm IV q12h (Cr now 2.2) -- continue to monitor Cr and adjust cefazolin dose as needed # Cirrhosis, DM - predisposition to infection # PCN allergy: rash in childhood meds cefazolin 2gm IV q8h, #1 Subjective: patient cheerful Reports pain R shoulder improved denies diarrhea Objective: Vital Signs Temp Pulse Resp BP Pulse Ox 36.7 C 101 H 12 120/56 L 100 05/03/17 08:00 05/03/17 08:00 05/03/17 08:00 05/03/17 08:00 05/03/17 08:00 Microbiology 05/02/17 17:54 Gram Stain - Final Shoulder - Eswab 05/02/17 17:54 Gram Stain - Final Shoulder - Eswab 05/02/17 17:54 Gram Stain - Final Shoulder - Eswab 05/02/17 17:54 Gram Stain - Final Shoulder - Eswab 05/02/17 17:54 Gram Stain - Final Shoulder - Eswab 05/02/17 17:54 Gram Stain - Final Shoulder - Eswab 05/02/17 18:22 Gram Stain - Final Shoulder - Tissue 05/02/17 17:54 Mycobacterial Smear (JOSE A) - Final Shoulder - Eswab Mycobacterial Culture - Final 05/02/17 17:54 Mycobacterial Smear (JOSE A) - Final Shoulder - Eswab Mycobacterial Culture - Final 05/02/17 17:54 Mycobacterial Smear (JOSE A) - Final Shoulder - Eswab Mycobacterial Culture - Final 05/02/17 17:54 Mycobacterial Smear (JOSE A) - Final Shoulder - Eswab Mycobacterial Culture - Final 05/02/17 17:54 Mycobacterial Smear (JOSE A) - Final Shoulder - Eswab Mycobacterial Culture - Final 05/02/17 17:54 Mycobacterial Smear (JOSE A) - Final Shoulder - Eswab Mycobacterial Culture - Final 05/01/17 16:46 Gram Stain - Final Shoulder - Aspirate Laboratory Results 05/02/17 08:32 05/03/17 04:20 05/02/17 05/03/17 05/04/17 05:59 05:59 05:59 Intake Total 1950 678.1 Output Total 800 990 Balance 1150 -311.9 - Physical Exam General Appearance: alert, no apparent distress EENT: other (edentuous) Respiratory: lungs clear, No accessory muscle use Cardiac/Chest: regular rate, rhythm, No systolic murmur Extremities: other (dressing in place R shoulder, multiple drains with serosang drainage) Abdomen: normal bowel sounds, non-tender, soft Skin: pallor, No rash Neuro/Psych: alert, normal mood/affect, oriented x 3 ICD10 Worksheet Patient Problems: Problems Problem Status Onset Hyponatremia Acute Osteomyelitis Acute Sepsis Acute Altered mental status Acute Head injury Acute Scalp laceration Acute
[2017-05-03] MEDS: oxyCODONE IR 5 MG TAB PO PRN ×3 (10:39→23:54)
[2017-05-03] MEDS: ENOXAPARIN 40 MG/0.4 ML SYR SC SCH (11:41)
[2017-05-03] MEDS ORDERED: INSULIN LISPRO 100 UNIT/ML SC SCH ×2 (12:00)
[2017-05-03] MEDS ORDERED: NS 500 ML IV ONE (12:01)
--- NOTE | 2017-05-03 12:08 | HOSPPROG ---
Hospitalist Progress Note Assessment/Plan: DIANGOSES: # Acute septic shock with hypotension and renal failure on pressor with good CVP at 12 -will give a 500 ml bolus of saline to see if he responds but he may need more pressor -check echo to look for pulm HTN or other changes that might indicate need for higher filling pressures # acute osteomyelitis of distal clavicle and abscess of the right shoulder region ; Streptococcal bacteremia and also growing from shoulder. Now s/p surgical evacuation of abscess, resection of distal clavical and acromionectomy -on IV ancef # Acute oliguric Renal Failure, Hemodynamic etiology # Hyponatremia, suspect SIADH in what appears to be a at least nearly euvolemic state, uncertain etiology, no diuretics. Na a bit lower today may be due to vanco which he had been getting in D5 and fluids given in OR for resuscitation and post op; Also his hyperglycemia is now significant enough to cause lower sugars -will recheck Na now -continue oral fluid restriction, oral supplements, and treat hyperglycemia more aggressively; may need more hypertonic saline if not responding # Diabetes mellitus -now quite hyperglycemic, likely due to stress of sepsis -increase insulin doses and follow # Microcytic anemia with both the anemia and microcytosis new since August of this year. will give some iron, may need GI evaluation at some point as outpt # Blindness, chronic # Bipolar disorder, appears stable at this time on chronic medication I have reviewed in detail with Dr Eric SUBJECTIVE: pain is less after surgery but still needing narcotic no chills no sob OBJECTIVE: vitals: no fever; he became hypotensive in OR and has been on levofed to support BP since then, currently dose up to 9 and still w mean BP 50s card monitor: sinus tach Urine output decreased to oliguria exam: alert oriented, relaxed skin warm dry shoulder dressing dry; three drains in place all draining blood tinged mildly purulent fluid resps easy lungs clear heart reg abd soft no edema good distal cap refill Na this am 124, 125 Creat up to 1.5 wbc still high Objective: Vital Signs Temp Pulse Resp BP Pulse Ox 36.7 C 113 H 16 107/62 98 05/03/17 08:00 05/03/17 11:00 05/03/17 11:00 05/03/17 11:00 05/03/17 11:00 Microbiology 05/01/17 16:46 Gram Stain - Final Shoulder - Aspirate 05/02/17 17:54 Gram Stain - Final Shoulder - Eswab 05/02/17 17:54 Gram Stain - Final Shoulder - Eswab 05/02/17 17:54 Gram Stain - Final Shoulder - Eswab 05/02/17 17:54 Gram Stain - Final Shoulder - Eswab 05/02/17 17:54 Gram Stain - Final Shoulder - Eswab 05/02/17 17:54 Gram Stain - Final Shoulder - Eswab 05/02/17 18:22 Gram Stain - Final Shoulder - Tissue 05/02/17 17:54 Mycobacterial Smear (JOSE A) - Final Shoulder - Eswab Mycobacterial Culture - Final 05/02/17 17:54 Mycobacterial Smear (JOSE A) - Final Shoulder - Eswab Mycobacterial Culture - Final 05/02/17 17:54 Mycobacterial Smear (JOSE A) - Final Shoulder - Eswab Mycobacterial Culture - Final 05/02/17 17:54 Mycobacterial Smear (JOSE A) - Final Shoulder - Eswab Mycobacterial Culture - Final 05/02/17 17:54 Mycobacterial Smear (JOSE A) - Final Shoulder - Eswab Mycobacterial Culture - Final 05/02/17 17:54 Mycobacterial Smear (JOSE A) - Final Shoulder - Eswab Mycobacterial Culture - Final Laboratory Results 05/02/17 08:32 05/03/17 04:20 05/02/17 05/03/17 05/04/17 06:59 06:59 06:59 Intake Total 1950 678.1 Output Total 800 990 Balance 1150 -311.9 PT 18.0 SEC (12.0-15.0) H 05/01/17 11:20 INR 1.49 (0.83-1.16) H 05/01/17 11:20 - Time Spent With Patient Time Spent with Patient: greater than 35 minutes Time Spent with Patient: Greater than 35 minutes spent on this patients care, greater than 50% of time spent counseling, educating, and coordinating care regarding the above mentioned plan. ICD10 Worksheet Patient Problems: Problems Problem Status Onset Hyponatremia Acute Osteomyelitis Acute Sepsis Acute Altered mental status Acute Head injury Acute Scalp laceration Acute
--- NOTE | 2017-05-03 12:52 | GOP ---
[f rep st] OPERATIVE REPORT PATIENT: JAZZ WARD DATE OF SERVICE: 05/01/17 PATIENT DATE OF : 1955 SURGEON: Schuyler Dunlap M.D. PATTERN FINISHER: Alysha Bell PA-C Mrs. Soto assistance was medically necessary for patient positioning and the retraction of vital structures. ANESTHESIA: General PRE-OPERATIVE DIAGNOSES: Right shoulder abscess (ICD-10 code M17.011 right shoulder abscess) Right shoulder osteomyelitis (ICD-10 code M86.211 right shoulder osteomyelitis) POST-OPERATIVE DIAGNOSES: Right shoulder abscess (ICD-10 code M17.011 right shoulder abscess) Right shoulder osteomyelitis (ICD-10 code M86.211 right shoulder osteomyelitis) OPERATIVE PROCEDURES: CPT code 27647 -- Right shoulder abscess incision and drainage CPT code 59019 -- Right shoulder incision of bone cortex (lateral clavicle) CPT code 54520 -- Right shoulder incision of bone cortex (acromion) CPT code 23369 -- Right shoulder incision of bone cortex (scapular spine) CPT code 95982 Right shoulder excision of subacromial bursa CPT code 95216 Right shoulder partial excision of clavicle CPT code 10184 Right shoulder excision of acromion CPT code 47267 Right shoulder partial excision of scapular spine CPT code 10952 -- Debridement of bone, first 20 square cm or less CPT code 47353 -- Debridement of bone, each additional 20 square cm CPT code 67806 Right shoulder muscle transfer, multiple Modifier 22 Increased procedural services EBL: 60cc COMPLICATIONS: None IMPLANTS: Three Horace-Jarquin drains BRIEF CLINICAL NOTE: This is a very pleasant 62 year old male with a significant history for a large, complex, multi-lobulated right shoulder abscess with associated osteomyelitis of his right lateral clavicle, acromion, and scapular spine. As such, I discussed the risks, benefits, alternatives, and complications associated with both non-operative (specifically, observation , antibiotics) and operative (specifically, right shoulder irrigation and debridement with partial clavicle excision, acromion excision, and partial scapular spine excision) forms of treatment. The patient fully understands the risks, benefits, alternatives, and complications associated with both forms of treatment and wishes to proceed with operative intervention as outlined above. The patient has signed the informed consent form for surgery. OPERATIVE NOTE: On the day of surgery, all of the patients questions were answered. The patient was then transferred from the pre-operative area into the operating room and a formal, Time-Out procedure was performed. The patient was identified by name, medical record number, social security number, and date of . In addition, the patients right upper extremity was identified as the correct portion of the patients body for surgery with the patients right shoulder being identified as the correct portion of that extremity for surgery. The patient was then transferred onto the operating room table and positioned in the beach chair position. The right upper extremity was then prepped and draped in the normal sterile fashion. A sterile marking pen was then utilized to johnnie out a saber-type incision starting at the coracoid process and extending posteriorly to the scapular spine. The incision was then carried proximally and posteriorly into a Judet- type incision to reach the inferior aspect of the scapula. A number 15 blade was then used to incise the skin. Meticulous hemostasis was obtained in the subcutaneous plane with bovie cautery. Full thickness skin flaps were then elevated both medially and laterally to expose the trapezius, the clavicle, the acromion, the scapular spine, and the deltoid. The trapezius and deltoid were then detached from the lateral clavicle, the acromion, and the scapular spine to expose the underlying abscess cavities. The patient demonstrated a large, complex, multi-lobulated abscess with cavities deep to the trapezius, within the subacromial space, between the scapular spine and the infraspinatus, and posterior to the infraspinatus and teres minor extending medially to the medial border of the scapula. Multiple swab and tissue cultures were then obtained and sent to the laboratory for microbiologic examination. The anesthesia team then administered intravenous antibiotics. All of the abscess cavities were then completely decompressed and sharply surgically debrided including sking, muscle, fascia, and bone. This portion of the procedure required significantly more time than is typical due to the complex nature of the abscess. Next, the lateral clavicle was resected back to the level of the coracoclavicular ligaments, the entire acromion was resected, and the lateral aspect of the scapular spine was resected. The subacromial and the subdeltoid bursa was then resected. The wound was once again sharply surgically debrided. Next, multiple liters of sterile normal saline mixed with bacitracin and polymixin were utilized to copiously irrigate the entire wound with pulsatile lavage. Three Horace-Jarquin drains were then inserted (one was inserted posterior the scapula, one was inserted into the supraspinatus fossa, and one was inserted into the subdeltoid region) and sewed to the skin. The trapezius muscle was then transferred to the posterior, mid, and anterior deltoid muscles with 0- prolene sutures to provide for closure of the deep space. The skin was then re- approximated with 2-0 nylon sutures. The skin was then cleaned with sterile normal saline and dried. Betadine soaked gauze was then applied to the wound followed by a dry sterile dressing and an occlusive Ioban wrap. The patient was then reversed from anesthesia and transferred from the operating room table onto the post-operative gurney and transferred from the operating room to the ICU in stable condition. POST-OPERATIVE PLAN: The patient will be admitted to the forensic psychiatrist team for post-operative monitoring. The infectious disease team will be consulted for recommendations on long-term IV antibiotics. The original dressing and drains will be left in place for a minimum of 2 days. He will keep the incision clean and dry. /[id number]/MODL MTDD
[2017-05-03 13:11] LABS: ANION GAP 7 mEq/L (8-16); CALCIUM 7.2 mg/dL (8.5-10.4); CARBON DIOXIDE 20 mEq/l (22-31); CHLORIDE 96 mEq/L (97-110); CREATININE 2.1 mg/dL (0.7-1.3); GLOMERULAR FILTRATION RATE 32; GLUCOSE 283 mg/dL (70-100); SODIUM 123 mEq/L (134-144)
[2017-05-03 14:01] LABS: HEMATOCRIT 23.3 % (40.0-51.0); HEMOGLOBIN 7.6 g/dL (13.7-17.5)
[2017-05-03] MEDS: VASOPRESSIN/DEXTROSE 250 ML IV SCH (14:08)
[2017-05-03] MEDS ORDERED: FAMOTIDINE 20 MG in NS 100 ML IV ONE (14:18)
[2017-05-03] MEDS ORDERED: ALBUMIN 5% 500 ML IV ONE (14:27)
[2017-05-03] MEDS ORDERED: INSULIN REGULAR HUMAN 100 UNIT in NS 100 ML IV SCH ×2 (14:30)
[2017-05-03] MEDS ORDERED: D5W 1,000 ML IV SCH (14:30)
[2017-05-03 14:58] LABS: % IMMATURE GRANULYOCYTES 1.1 % (0.0-1.1); ABSOLUTE IMMATURE GRANULOCYTES 0.12 10^3/uL (0.00-0.10); ADD DIFF? NO; ADD MORPH? NO; ADD SCAN? NO; ATYPICAL LYMPHOCYTE FLAG 0 (0-99); FRAGMENT RBC FLAG 30 (0-99); HEMATOCRIT 21.8 % (40.0-51.0); HEMOGLOBIN 7.2 g/dL (13.7-17.5); LEFT SHIFT FLG 10 (0-99); LIPEMIA HEMOLYSIS FLAG 80 (0-99); MEAN CELL HEMOGLOBIN 28.1 pg (27.9-34.1); MEAN CELL VOLUME 85.2 fL (81.5-99.8); MEAN PLATELET VOLUME 9.6 fL (8.7-11.7); PLATELET CLUMPS FLAG 0 (0-99); PLATELET COUNT 198 10^3/uL (150-400); RED BLOOD CELL COUNT 2.56 10^6/uL (4.40-6.38); RED CELL DISTRIBUTION WIDTH 13.2 % (11.5-15.2)
[2017-05-03 15:05] LABS: INR 1.76 (0.83-1.16); PROTIME(PATIENT) 20.6 SEC (12.0-15.0)
[2017-05-03 15:06] LABS: APTT 44.9 SEC (23.0-38.0)
[2017-05-03 15:09] LABS: ALANINE AMINOTRANSFERASE 24 IU/L (21-72); ALBUMIN 1.6 g/dL (3.5-5.0); ALKALINE PHOSPHATASE 109 IU/L (38-126); ANION GAP 6 mEq/L (8-16); ASPARTATE AMINOTRANSFERASE 18 IU/L (17-59); BILIRUBIN-CONJUGATED 2.6 mg/dL (0.0-0.5); BILIRUBIN-UNCONJUGATED 0.4 mg/dL (0.0-1.1); CALCIUM 6.9 mg/dL (8.5-10.4); CARBON DIOXIDE 20 mEq/l (22-31); CHLORIDE 97 mEq/L (97-110); CREATININE 2.2 mg/dL (0.7-1.3); GLOMERULAR FILTRATION RATE 30; GLUCOSE 340 mg/dL (70-100); POTASSIUM 4.7 mEq/L (3.5-5.2); SODIUM 123 mEq/L (134-144); TOTAL PROTEIN 4.7 g/dL (6.3-8.2)
[2017-05-03] MEDS: THIAMINE HCL 200 MG in NS 100 ML IV SCH (15:11)
[2017-05-03] MEDS: HYDROCORTISONE 100 MG/2 ML VIAL IVP SCH ×2 (15:13→20:41)
--- NOTE | 2017-05-03 15:37 | GCON ---
[f rep st] CONSULTATION PULMONARY/CRITICAL CARE CONSULTATION DATE OF CONSULTATION: 05/03/2017 REFERRING PHYSICIAN: Vidal Shay MD REASON FOR REFERRAL: Evaluation and management of hypotension, sepsis. HISTORY: The patient is a 62-year-old male, who is a resident at [facility]. He was admitted to [facility] 2 days ago, with complaint of shoulder pain. He is blind, and struck his right shoulder while walking around his room. Evaluation included an MRI that demonstrate d some cortical destruction, suggesting possible osteomyelitis, with a soft tissue abscess. The flui d was aspirated and grew Group B Streptococcus. The patient was placed on vancomycin and admitted. He underwent debridement last night, which included distal clavicle partial excision, acromionectomy, and scapular spine excision. The patient reports ongoing shoulder pain, but this is fairly well con trolled. He denies nausea or vomiting. PAST MEDICAL HISTORY: 1. Acquired bilateral blindness. 2. Diabetes. 3. Alcohol abuse with cirrhosis. 4. Chronic pain. 5. Bipolar disorder. MEDICATIONS: At the time of admission, include omeprazole, Voltaren, Tylenol, oxycodone, Seroquel, L evemir, NovoLog and Neurontin. ALLERGIES: Penicillin. SOCIAL HISTORY: The patient lives at [facility]. He does not drink or smoke. FAMILY HISTORY: Unremarkable. REVIEW OF SYSTEMS: A 10-point review of systems adds nothing to the history of present illness. PHYSICAL EXAMINATION: GENERAL: The patient is awake, alert, in no acute distress. VITAL SIGNS: Blo od pressure is 147/59, norepinephrine at 10, and vasopressin at 0.04. He has had mean arterial press ures in the 50s, prior to starting pressors. Heart rate is 96, down from 113 earlier today. He is a febrile. Oxygen saturations are 94% on room air. HEENT: Normocephalic and atraumatic. No icterus. He is blind. NECK: No JVD. Trachea is midline. CHEST: Clear to auscultation. CARDIAC: Regular rate and rhyth m without murmur. ABDOMEN: Soft, nontender. Bowel sounds are present. EXTREMITIES: No clubbing, cyanosis, or edema. His right shoulder is dressed. He has good capillary refill and warm extremitie s. NEURO: The patient is awake and alert. He is able to move all extremities, with the exception o f the limitation in his right shoulder mobility. There are no gross sensory deficits. LABORATORY: Sodium is 123, down from 126 earlier overnight, up from 120 at the time of admission. P otassium is 5.0. BUN is 26, with a creatinine of 2.1. His creatinine was 1.0 last night. Glucose i s 283, and has not been less than 200 since last night. Bilirubin is 3.3. A white blood count is 11 .4. A hemoglobin is 7.6, down from 11.5 earlier today. Platelet count is 148, and INR is 1.5. Veno us lactate 2 days ago was 1.2. A chest x-ray last night shows some basilar atelectasis. Images reviewed. Blood cultures are growing a beta hemolytic strep agalactiae. Sensitivities are pending. ASSESSMENT: 1. Gram-positive sepsis. The patient has hypotension, requiring 2 pressors, and blood cultures that are positive, with a known source in the right shoulder. The patient is being treated with vancomyc in and Ancef. His pressor needs have actually increased during the day. 2. Hypotension. The patient is requiring 2 pressors now in order to maintain blood pressure. His C INTERNAL SPECIALIST is 10-12, and Nicom monitor suggested that he is not fluid responsive. Since the addition of vasop ressin a short while ago, his mean arterial pressures are now in the 70s. 3. Acute kidney injury. The patient had a normal creatinine and urine output at the time of admissi on, but for the last several hours had no urine output and his creatinine has markedly increased. He also has moderate hyperkalemia. 4. Hyperglycemia. The patient's blood sugars have been consistently in the 200s despite insulin. 5. Anemia. The patient's hemoglobin has acutely dropped. The patient has no obvious source of blee ding. This could be a spurious lab value or could represent internal bleeding or hemolysis. 6. Hyponatremia. The patient's sodiums have been in the low-mid 120 since admission. He has not re sponded to 3% sodium chloride or salt tabs, which was given yesterday. A sodium was 144 in August, the last time it was checked at this hospital. RECOMMENDATIONS: 1. Start to wean norepinephrine as tolerated. 2. Despite the nonresponsiveness on the Nicom monitor, I will give a bolus of saline, given the dada ent's hypotension requiring pressors and also renal insufficiency. The albumin may allow us to use a lower total fluid volume, so as to not result in a change in serum sodium concentration that is more rapid than desired. 3. Continue antibiotics per ID. 4. I will check a lactate and also start the patient on vitamin C to help with sepsis. 5. I will do a stat recheck of the patient's hemoglobin. If it is low, we may consider transfusion and evaluation for hemolysis. It is 45 minutes of critical care time, addressing hypotension, acute renal failure, hyperglycemia, a nd ongoing sepsis. /[id number]/MODL
--- NOTE | 2017-05-03 15:38 | ASMTCMCOM ---
CM Note CM Note Notes: Pt was admitted with hyponatremia, sepsis, osteomyelitis in shoulder. He fell at [facility] approx 2 weeks ago and hit his shoulder. He has Bipolar d/o and is blind and lives in their LTC section. He is s/p shoulder debridement and on IV Ancef. Anticipate pt will return to LTC when medically cleared to d/c. Left ms for Sonya at [phone] to discuss possible etoh abuse by pt at . He was here in 09/07 after a fall. He was intoxicated and in withdrawal at that time. Date Signed: 05/03/2017 03:37 PM Electronically Signed By:JANNY Breaux
[2017-05-03] MEDS: ASCORBIC ACID 1,500 MG in D5W 100 ML IV SCH ×2 (15:49→21:11)
[2017-05-03 15:55] LABS: HEMOGLOBIN A1C 9.1 % (4.0-6.0)
[2017-05-03] MEDS ORDERED: FAMOTIDINE 20 MG/NACL 50 ML IV ONE (16:45)
[2017-05-03 17:56] LABS: ANION GAP 8 mEq/L (8-16); CARBON DIOXIDE 17 mEq/l (22-31); CHLORIDE 99 mEq/L (97-110); POTASSIUM 4.7 mEq/L (3.5-5.2); SODIUM 124 mEq/L (134-144)
--- NOTE | 2017-05-03 19:04 | SOAPPROG ---
SOAP Progress Note Assessment/Plan: Assessment: Pt is POD#1 from right shoulder abscess incision and drainage, distal clavicle excision, acromionectomy. Patient reports his shoulder is feeling better than before surgery. Patient currently resting comfortably in the sling. PE: Dressing clean, dry, intact. Three drains in place (170cc of fluid out total ) Pt NV intact RUE Plan: 1. Dressing to be kept CDI. Reinforce if needed, however, do not remove dressing. Dressings will be changed by Alysha Bell PA-C or Dr. Dunlap. 2. Antibiotic management per infectious disease 3. WBAT RUE. Sling only for comfort. May remove sling if needed 05/03/17 19:01 Objective: Vital Signs Temp Pulse Resp BP Pulse Ox 37.0 C 85 14 132/51 H 91 L 05/03/17 17:54 05/03/17 17:54 05/03/17 17:54 05/03/17 17:54 05/03/17 17:54 Microbiology 05/02/17 17:54 Gram Stain - Final Shoulder - Eswab 05/02/17 17:54 Gram Stain - Final Shoulder - Eswab 05/02/17 17:54 Gram Stain - Final Shoulder - Eswab 05/02/17 17:54 Gram Stain - Final Shoulder - Eswab 05/02/17 17:54 Gram Stain - Final Shoulder - Eswab 05/02/17 17:54 Gram Stain - Final Shoulder - Eswab 05/02/17 17:54 Mycobacterial Smear (JOSE A) - Final Shoulder - Eswab Mycobacterial Culture - Final 05/02/17 18:22 Mycobacterial Smear (JOSE A) - Final Shoulder - Tissue 05/02/17 18:22 Gram Stain - Final Shoulder - Tissue 05/01/17 16:46 Gram Stain - Final Shoulder - Aspirate 05/02/17 17:54 Mycobacterial Smear (JOSE A) - Final Shoulder - Eswab Mycobacterial Culture - Final 05/02/17 17:54 Mycobacterial Smear (JOSE A) - Final Shoulder - Eswab Mycobacterial Culture - Final 05/02/17 17:54 Mycobacterial Smear (JOSE A) - Final Shoulder - Eswab Mycobacterial Culture - Final 05/02/17 17:54 Mycobacterial Smear (JOSE A) - Final Shoulder - Eswab Mycobacterial Culture - Final 05/02/17 17:54 Mycobacterial Smear (JOSE A) - Final Shoulder - Eswab Mycobacterial Culture - Final Laboratory Results 05/03/17 14:20 05/03/17 17:30 05/02/17 05/03/17 05/04/17 05:59 05:59 05:59 Intake Total 1950 678.1 3929 Output Total 800 990 70 Balance 1150 -311.9 3859 PT 20.6 SEC (12.0-15.0) H 05/03/17 14:20 INR 1.76 (0.83-1.16) H 05/03/17 14:20 ICD10 Worksheet Patient Problems: Problems Problem Status Onset Hyponatremia Acute Osteomyelitis Acute Sepsis Acute Altered mental status Acute Head injury Acute Scalp laceration Acute
[2017-05-03] MEDS: LATANOPROST 0.005% 2.5 ML OPHT DROPS RTEYE SCH ×2 (20:40→20:41)
[2017-05-03] MEDS: PANTOPRAZOLE SODIUM 40 MG TAB PO SCH (20:40)
[2017-05-03] MEDS: QUEtiapine FUMARATE 100 MG TAB PO SCH (23:07)
[2017-05-04] MEDS: VASOPRESSIN/DEXTROSE 250 ML IV SCH (00:19)
[2017-05-04] MEDS: HYDROCORTISONE 100 MG/2 ML VIAL IVP SCH ×4 (03:09→20:37)
[2017-05-04] MEDS: ASCORBIC ACID 1,500 MG in D5W 100 ML IV SCH ×4 (03:09→20:37)
[2017-05-04] MEDS: THIAMINE HCL 200 MG in NS 100 ML IV SCH ×2 (03:55→14:03)
[2017-05-04] MEDS: ceFAZolin 2 GM/DEXTROSE 100 ML IV SCH ×2 (06:25→18:02)
[2017-05-04 06:43] LABS: % IMMATURE GRANULYOCYTES 1.3 % (0.0-1.1); ABSOLUTE IMMATURE GRANULOCYTES 0.06 10^3/uL (0.00-0.10); ADD DIFF? NO; ADD MORPH? YES; ADD SCAN? NO; ATYPICAL LYMPHOCYTE FLAG 0 (0-99); FRAGMENT RBC FLAG 0 (0-99); HEMATOCRIT 20.4 % (40.0-51.0); LEFT SHIFT FLG 10 (0-99); LIPEMIA HEMOLYSIS FLAG 80 (0-99); MEAN CELL HEMOGLOBIN CONCENTR. 33.3 g/dL (32.4-36.7); MEAN PLATELET VOLUME 9.5 fL (8.7-11.7); PLATELET CLUMPS FLAG 0 (0-99); PLATELET COUNT 122 10^3/uL (150-400); RED BLOOD CELL COUNT 2.43 10^6/uL (4.40-6.38); RED CELL DISTRIBUTION WIDTH 13.1 % (11.5-15.2)
[2017-05-04 06:44] LABS: HEMOGLOBIN 6.8 g/dL (13.7-17.5)
[2017-05-04 07:03] LABS: ALANINE AMINOTRANSFERASE 22 IU/L (21-72); ALKALINE PHOSPHATASE 95 IU/L (38-126); ANION GAP 8 mEq/L (8-16); ASPARTATE AMINOTRANSFERASE 17 IU/L (17-59); BILIRUBIN,TOTAL 1.6 mg/dL (0.1-1.4); CALCIUM 6.9 mg/dL (8.5-10.4); CARBON DIOXIDE 19 mEq/l (22-31); CHLORIDE 99 mEq/L (97-110); CREATININE 2.6 mg/dL (0.7-1.3); GLOMERULAR FILTRATION RATE 25; GLUCOSE 174 mg/dL (70-100); POTASSIUM 5.1 mEq/L (3.5-5.2); SODIUM 126 mEq/L (134-144)
[2017-05-04 07:10] LABS: ELLIPTOCYTES 1+; MICROCYTES 1+; PLATELET ESTIMATE DECREASED (ADEQ)
[2017-05-04] MEDS: GABAPENTIN 300 MG CAP PO SCH ×3 (08:15→20:41)
[2017-05-04] MEDS: ENOXAPARIN 40 MG/0.4 ML SYR SC SCH (08:16)
[2017-05-04] MEDS: SODIUM CHLORIDE 1,000 MG TAB PO SCH ×2 (08:16→18:03)
[2017-05-04] MEDS: oxyCODONE IR 5 MG TAB PO PRN ×3 (08:16→20:41)
[2017-05-04] MEDS: BRIMONIDINE/TIMOLOL 5 ML OPHT.BTL RTEYE SCH ×2 (08:19→20:42)
--- NOTE | 2017-05-04 09:48 | HOSPPROG ---
Hospitalist Progress Note Assessment/Plan: Septic shock secondary to right shoulder abscess / osteo of distal clavicle - MAP 50's off pressors this am, has central line -resume norepi to keep MAP >65, wean as able -cont Cefazolin, ID following -cont stress dose steroids -cont Vit C / thiamine protocol Strep bacteremia secondary to multiple abscesses / osteo of right shoulder s/p removal of distal clavicle, acromion - POD #1. -cont atbx, repeat BCx this am pending. -will need minimum 6 weeks atbx per ID. TITO - likely ATN in setting of post-op hypotension / shock. Urine studies pending. Renal has consulted, appreciate assistance. -f/u urine studies to calculate FeNa -renal u/s today -avoid nephrotoxic meds Hyponatremia - likely SIADH. 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 Pain controlled. Denies CP, SOB. No paresthesias or weakness. No fevers. Objective: Vital Signs Temp Pulse Resp BP Pulse Ox 36.7 C 79 16 100/60 97 05/04/17 02:00 05/04/17 07:52 05/04/17 07:52 05/04/17 07:52 05/04/17 07:52 Microbiology 05/02/17 17:54 Gram Stain - Final Shoulder - Eswab 05/02/17 17:54 Gram Stain - Final Shoulder - Eswab 05/02/17 17:54 Gram Stain - Final Shoulder - Eswab 05/02/17 17:54 Gram Stain - Final Shoulder - Eswab 05/02/17 17:54 Gram Stain - Final Shoulder - Eswab 05/02/17 17:54 Gram Stain - Final Shoulder - Eswab 05/02/17 17:54 Mycobacterial Smear (JOSE A) - Final Shoulder - Eswab Mycobacterial Culture - Final 05/02/17 18:22 Mycobacterial Smear (JOSE A) - Final Shoulder - Tissue 05/02/17 18:22 Gram Stain - Final Shoulder - Tissue 05/01/17 16:46 Gram Stain - Final Shoulder - Aspirate Laboratory Results 05/04/17 06:27 05/04/17 06:27 05/03/17 05/04/17 05/05/17 05:59 05:59 05:59 Intake Total 678.1 4582.7 Output Total 990 470 100 Balance -311.9 4112.7 -100 PT 20.6 SEC (12.0-15.0) H 05/03/17 14:20 INR 1.76 (0.83-1.16) H 05/03/17 14:20 - Physical Exam Constitutional: no apparent distress Eyes: PERRL Ears, Nose, Mouth, Throat: moist mucous membranes Cardiovascular: regular rate and rhythym Respiratory: no respiratory distress, clear to auscultation Gastrointestinal: normoactive bowel sounds, soft, non-tender abdomen Skin: warm Musculoskeletal: other (RUE dressing c/d/i, distal extremity warm, 2+ radial pulse, sensation intact) Neurologic: AAOx3 Psychiatric: interacting appropriately ICD10 Worksheet Patient Problems: Problems Problem Status Onset Hyponatremia Acute Osteomyelitis Acute Sepsis Acute Altered mental status Acute Head injury Acute Scalp laceration Acute
--- NOTE | 2017-05-04 09:59 | PDINTPN ---
Transplant Nurse Progress Note Assessment/Plan: Assessment: S/P shoulder abscess with Strep. agalactiae: On Cefazolin, Vanco. Sepsis: Episode of hypotension requiring NE, SECURITY ESCORT, anuria yesterday. Improved today, off pressors, starting to urinate. On Vitamin C TITO: Cr up to 3.1. Starting to urinate. Diabetes: BSs up yesterday, started insulin gtt, now BSs <200 at 4 units/hour Anemia: Hgb 7-8. Plan: Continue antibiotics, Vit C. ? transition to SSI. Transfuse PRBCs. 05/04/17 09:59 Subjective: Feels OK, shoulder pain improved. Feels strength is better. Objective: Vital Signs Temp Pulse Resp BP Pulse Ox 36.7 C 79 16 100/60 97 05/04/17 02:00 05/04/17 07:52 05/04/17 07:52 05/04/17 07:52 05/04/17 07:52 Microbiology 05/02/17 17:54 Gram Stain - Final Shoulder - Eswab 05/02/17 17:54 Gram Stain - Final Shoulder - Eswab 05/02/17 17:54 Gram Stain - Final Shoulder - Eswab 05/02/17 17:54 Gram Stain - Final Shoulder - Eswab 05/02/17 17:54 Gram Stain - Final Shoulder - Eswab 05/02/17 17:54 Gram Stain - Final Shoulder - Eswab 05/02/17 17:54 Mycobacterial Smear (JOSE A) - Final Shoulder - Eswab Mycobacterial Culture - Final 05/02/17 18:22 Mycobacterial Smear (JOSE A) - Final Shoulder - Tissue 05/02/17 18:22 Gram Stain - Final Shoulder - Tissue 05/01/17 16:46 Gram Stain - Final Shoulder - Aspirate Laboratory Results 05/04/17 06:27 05/04/17 06:27 05/03/17 05/04/17 05/05/17 05:59 05:59 05:59 Intake Total 678.1 4582.7 Output Total 990 470 100 Balance -311.9 4112.7 -100 PT 20.6 SEC (12.0-15.0) H 05/03/17 14:20 INR 1.76 (0.83-1.16) H 05/03/17 14:20 Physical Exam - Physical Exam General Appearance: alert, no apparent distress EENT: normal ENT inspection Neck: normal inspection Respiratory: lungs clear, normal breath sounds Cardiac/Chest: regular rate, rhythm, No edema Abdomen: normal bowel sounds, non-tender Skin: normal color, warm/dry Extremities: normal inspection, other (shoulder dressing with minimal drainage) Neuro/Psych: alert, normal mood/affect, oriented x 3, No motor weakness ICD10 Worksheet Patient Problems: Problems Problem Status Onset Hyponatremia Acute Osteomyelitis Acute Sepsis Acute Altered mental status Acute Head injury Acute Scalp laceration Acute
[2017-05-04] MEDS ORDERED: D50W 25 GM/50 ML SYR IVP PRN (10:50)
--- NOTE | 2017-05-04 10:59 | PDCONSULT ---
Hand Laminator Note: Assessment/Plan: TITO: pt likely has ATN in setting of sepsis and subsequent shock along with blood loss. Cr continues to uptrend today but lytes ok and no longer oliguric, expect he will recover soon and hopefully should no need HD. - No need for HD at this time. - Will send UA, urine protein, urine Cr, urine sodium. - Will obtain renal US. - Avoid hypotension and nephrotoxins. - Will continue to monitor. - Would consider transfusing as below. Anemia: post op, requiring transfusions yesterday. Hgb still 6.8 this am post- transfusion, discussed with Dr. Eric about perhaps transfusing another unit PRBCs today. Will continue to monitor. Hyponatremia: Na up to 126 from 120 on admission, on salt tabs, will continue to monitor. Will put off further urine studies for now given his TITO. Thank you for the interesting consult. Nephrology will continue to follow, please call if you have any additional questions or concerns. H & P Stated Complaint: Sent to ED for MRI/eval poss septic joint R shoulder Time Seen by Provider: 05/01/17 11:03 HPI/ROS: Mr. Berg is a 62 yo M who presented to ER on 05/01/17 with complaints of shoulder pain going on for about 2-3 weeks. He was found to have an abscess in his R shoulder, also was hyponatremic on presentation. His Cr was at his baseline on presentation at around 0.8, also noted to be hyponatremic at 120. He was started on salt tabs. He was taken to OR evening of 05/02/17 and afterward did worse, became hypotensive and then requiring pressors, stopped making urine, Cr was up to 1.5 yesterday am and then 2.6 this am. He was on two pressors and given IVFs as well as transfused RBCs yesterday. Pt had pressors stopped this morning, has made 400ml+ UOP since yesterday evening, and overall is feeling well. ROS: Positive per HPI and for blindness, rest of 10-point ROS Negative - Personal History Current Tetanus Diphtheria and Acellular Pertussis (TDAP): Yes - Medical/Surgical History Hx Asthma: No Hx Chronic Respiratory Disease: No Hx Diabetes: Yes Hx Cardiac Disease: No Hx Renal Disease: No Hx Cirrhosis: No Hx Alcoholism: No Hx HIV/AIDS: No Hx Splenectomy or Spleen Trauma: No Other PMH: BIPOLAR,CHRONIC PAIN,TYPE 2 DM,BLINDNESS, CIRROHSIS, SPENOMEGALY - Family History Significant Family History: Other (mother with bone cancer and ESRD) - Social History Smoking Status: Current some day smoker - Physical Exam Exam: General: alert and oriented, no acute distress OP: Clear, MMM Neck: supple, no thryomegaly CV: RRR, +2/4 radial and dorsalis pedis pulses, +trace edema BLE, +1 edema RUE Resp: CTA bilat, nonlabored respirations Abd: Soft, NT/ND Neuro; blind, remaining CN II-XII grossly intact, no asterixis Psych: cooperative, appropriate mood and affect Skin: C/D/I, no rash MSK: R shoulder bandaged with drains in place Constitutional: Initial Vital Signs Temperature (C) 36.6 C 05/01/17 10:35 Heart Rate 94 05/01/17 10:35 Respiratory Rate 18 05/01/17 10:35 Blood Pressure 85/61 L 05/01/17 10:35 O2 Sat (%) 94 05/01/17 10:35 O2 Delivery Mode Room Air Allergies/Adverse Reactions: Penicillins Allergy (Intermediate, Verified 05/01/17 10:49) Hives Home Medications: Medication Instructions Recorded Brimonidine/Timolol [Combigan (*)] 1 drop RTEYE BID 09/09/16 Calcium Carbonate [Tums 500MG (*)] 1,000 mg PO Q12H PRN 09/09/16 Cholecalciferol Vit D3 [Vitamin D3 5,000 units PO MO 09/09/16 (*)] Latanoprost 0.005% [Xalatan 0.005% 1 drops RTEYE HS 09/09/16 (*)] Magnesium Hydroxide [Milk of 30 ml PO DAILY PRN 09/09/16 Magnesia] Omeprazole [Prilosec 20 mg] 20 mg PO HS 09/09/16 Acetaminophen [Tylenol 325mg (*)] 650 mg PO Q6HRS PRN 05/01/17 Diclofenac Sodium 1% [Voltaren Gel 1 maxwell TP QID PRN 05/01/17 (*)] Gabapentin [Neurontin 300 MG (*)] 300 mg PO TID 05/01/17 Insulin Aspart [Novolog Flexpen] 4 unit SQ BID 05/01/17 Insulin Detemir [Levemir] 30 unit SQ BID 05/01/17 Ondansetron Odt [Zofran Odt 4 mg 4 mg PO Q6HRS PRN 05/01/17 (*)] QUEtiapine FUMARATE [Seroquel 100 100 mg PO DAILY 05/01/17 mg (*)] oxyCODONE IR [Oxycodone Ir (*)] 5 mg PO Q4HRS PRN 05/01/17 Lab and Imaging 05/04/17 06:27 05/04/17 06:27 WBC 4.74 10^3/uL (3.80-9.50) 05/04/17 06:27 RBC 2.43 10^6/uL (4.40-6.38) L 05/04/17 06:27 Hgb 6.8 g/dL (13.7-17.5) L 05/04/17 06:27 POC Hgb 7.8 gm/dL (13.7-17.5) L 05/04/17 08:27 Hct 20.4 % (40.0-51.0) L 05/04/17 06:27 POC Hct 23 % (40-51) L 05/04/17 08:27 MCV 84.0 fL (81.5-99.8) 05/04/17 06:27 MCH 28.0 pg (27.9-34.1) 05/04/17 06:27 MCHC 33.3 g/dL (32.4-36.7) 05/04/17 06:27 RDW 13.1 % (11.5-15.2) 05/04/17 06:27 Plt Count 122 10^3/uL (150-400) L D 05/04/17 06:27 MPV 9.5 fL (8.7-11.7) 05/04/17 06:27 Neut % (Auto) 85.0 % (39.3-74.2) H 05/04/17 06:27 Lymph % (Auto) 9.3 % (15.0-45.0) L 05/04/17 06:27 [place] % (Auto) 4.4 % (4.5-13.0) L 05/04/17 06:27 Eos % (Auto) 0.0 % (0.6-7.6) L 05/04/17 06:27 Baso % (Auto) 0.0 % (0.3-1.7) L 05/04/17 06:27 Nucleat RBC Rel Count 0.0 % (0.0-0.2) 05/04/17 06:27 Absolute Neuts (auto) 4.03 10^3/uL (1.70-6.50) 05/04/17 06:27 Absolute Lymphs (auto) 0.44 10^3/uL (1.00-3.00) L 05/04/17 06:27 Absolute Monos (auto) 0.21 10^3/uL (0.30-0.80) L 05/04/17 06:27 Absolute Eos (auto) 0.00 10^3/uL (0.03-0.40) L 05/04/17 06:27 Absolute Basos (auto) 0.00 10^3/uL (0.02-0.10) L 05/04/17 06:27 Absolute Nucleated RBC 0.00 10^3/uL (0-0.01) 05/04/17 06:27 Immature Gran % 1.3 % (0.0-1.1) H 05/04/17 06:27 Immature Gran # 0.06 10^3/uL (0.00-0.10) 05/04/17 06:27 Platelet Estimate DECREASED (ADEQ) L 05/04/17 06:27 Microcytic Cells 1+ H 05/04/17 06:27 Elliptocytes 1+ H 05/04/17 06:27 PT 20.6 SEC (12.0-15.0) H 05/03/17 14:20 INR 1.76 (0.83-1.16) H 05/03/17 14:20 APTT 44.9 SEC (23.0-38.0) H 05/03/17 14:20 VBG Lactic Acid 1.7 mmol/L (0.7-2.1) 05/03/17 14:20 Turbidity Cancelled 05/04/17 06:27 POC Sodium 127 mEq/L (134-144) L 05/04/17 08:27 Sodium 126 mEq/L (134-144) L 05/04/17 06:27 POC Potassium 5.0 mEq/L (3.3-5.0) 05/04/17 08:27 Potassium 5.1 mEq/L (3.5-5.2) 05/04/17 06:27 POC Chloride 97 mEq/L (97-110) 05/04/17 08:27 Chloride 99 mEq/L (97-110) 05/04/17 06:27 Carbon Dioxide 19 mEq/l (22-31) L 05/04/17 06:27 Anion Gap 8 mEq/L (8-16) 05/04/17 06:27 POC BUN 30 mg/dL (7-23) H 05/04/17 08:27 BUN 32 mg/dL (7-23) H 05/04/17 06:27 Creatinine 2.6 mg/dL (0.7-1.3) H 05/04/17 06:27 POC Creatinine 3.1 mg/dL (0.7-1.3) H 05/04/17 08:27 Estimated GFR 25 05/04/17 06:27 Glucose 174 mg/dL (70-100) H 05/04/17 06:27 POC Glucose 200 mg/dL (70-100) H 05/04/17 08:27 Hemoglobin A1c 9.1 % (4.0-6.0) H 05/03/17 14:20 Estim Average Glucose 214 mg/dL (68-126) H 05/03/17 14:20 Calcium 6.9 mg/dL (8.5-10.4) L 05/04/17 06:27 Magnesium 2.0 mg/dL (1.6-2.3) 05/02/17 08:32 Iron 27.0 mcg/dL (49.0-199.0) L 05/02/17 08:32 TIBC 195 ug/dL (260-490) L 05/02/17 08:32 Iron Saturation 14 % (20-55) L 05/02/17 08:32 Ferritin 428.0 ng/mL (17.9-464.0) 05/02/17 08:32 Total Bilirubin 1.6 mg/dL (0.1-1.4) H 05/04/17 06:27 Conjugated Bilirubin 2.6 mg/dL (0.0-0.5) H 05/03/17 14:20 Unconjugated Bilirubin 0.4 mg/dL (0.0-1.1) 05/03/17 14:20 AST 17 IU/L (17-59) 05/04/17 06:27 ALT 22 IU/L (21-72) 05/04/17 06:27 Alkaline Phosphatase 95 IU/L (38-126) 05/04/17 06:27 Total Protein 5.0 g/dL (6.3-8.2) L 05/04/17 06:27 Albumin 2.0 g/dL (3.5-5.0) L 05/04/17 06:27 Specimen Hemolysis 143 05/02/17 17:35 Urine Color KRIS 05/01/17 12:45 Urine Appearance HAZY 05/01/17 12:45 Urine pH 5.0 (5.0-7.5) 05/01/17 12:45 Ur Specific [place] 1.016 (1.002-1.030) 05/01/17 12:45 Urine Protein 1+ (NEGATIVE) H 05/01/17 12:45 Urine Ketones NEGATIVE (NEGATIVE) 05/01/17 12:45 Urine Blood 2+ (NEGATIVE) H 05/01/17 12:45 Urine Nitrate NEGATIVE (NEGATIVE) 05/01/17 12:45 Urine Bilirubin POSITIVE (NEGATIVE) H 05/01/17 12:45 Urine Urobilinogen 4.0 EU (0.2-1.0) H 05/01/17 12:45 Ur Leukocyte Esterase NEGATIVE (NEGATIVE) 05/01/17 12:45 Urine RBC 5-10 /hpf (0-3) H 05/01/17 12:45 Urine WBC 5-10 /hpf (0-3) H 05/01/17 12:45 Ur Epithelial Cells TRACE /lpf (NONE-1+) 05/01/17 12:45 Urine Bacteria TRACE /hpf (NONE SEEN) H 05/01/17 12:45 Hyaline Casts 15-25 /lpf (0-1) H 05/01/17 12:45 Urine Mucus 1+ /lpf (NONE-1+) 05/01/17 12:45 Ur Random Creatinine 112.5 mg/dL 05/01/17 18:49 Ur Random Sodium 39 mEq/L (30-90) 05/01/17 18:49 Urine Glucose 3+ (NEGATIVE) H 05/01/17 12:45 Patient ABO/Rh O POSITIVE 05/03/17 22:45 Antibody Screen NEGATIVE 05/03/17 22:45 Crossmatch IS Only See Detail 05/03/17 22:45
[2017-05-04] MEDS ORDERED: D10W 250 ML PRN HYPOGLYCEMIA IV (11:00)
[2017-05-04] MEDS ORDERED: INSULIN GLARGINE 100 UNITS/ML SYRINGE SC SCH ×2 (11:00→21:00)
[2017-05-04 11:27] LABS: ANION GAP 8 mEq/L (8-16); CARBON DIOXIDE 19 mEq/l (22-31); CHLORIDE 96 mEq/L (97-110); POTASSIUM 4.9 mEq/L (3.5-5.2); SODIUM 123 mEq/L (134-144)
[2017-05-04 11:35] LABS: ANION GAP 9 mEq/L (8-16); CARBON DIOXIDE 18 mEq/l (22-31); CHLORIDE 98 mEq/L (97-110); CREATININE 2.6 mg/dL (0.7-1.3); GLOMERULAR FILTRATION RATE 25; GLUCOSE 178 mg/dL (70-100); POTASSIUM 5.1 mEq/L (3.5-5.2); SODIUM 125 mEq/L (134-144)
[2017-05-04] MEDS: INSULIN LISPRO 100 UNIT/ML SC SCH ×2 (12:09→18:02)
--- NOTE | 2017-05-04 12:47 | PCMIDPN ---
Assessment/Plan: Assessment/Plan: 1. Group B strep bacteremia with right shoulder abscess and distal clavicle osteomyelitis: - s/p wash out and distal clavicle excision on 05/02/17 - Currently on Ancef, renally dosed. Creatinine to rise, today 2.6 from 2.2 - f/u blood cx today- will follow - Will follow labs closely -Will need prolonged course of antibiotics, of at least 6 weeks given above - care coordinated with Rn 2. DM/Cirrhosis/Blind 3. hx PCN allergy: rash Meds Ancef 2g q12- Subjective: AFebrile. Feels much better since wash out on shoulder. Not having much pain. Denies sob, cough, abd pain. Off pressors since this Am. Objective: Vital Signs Temp Pulse Resp BP Pulse Ox 36.7 C 89 19 93/45 L 92 05/04/17 02:00 05/04/17 12:00 05/04/17 12:00 05/04/17 12:00 05/04/17 12:00 Microbiology 05/02/17 17:54 Gram Stain - Final Shoulder - Eswab 05/02/17 17:54 Gram Stain - Final Shoulder - Eswab 05/02/17 17:54 Gram Stain - Final Shoulder - Eswab 05/02/17 17:54 Gram Stain - Final Shoulder - Eswab 05/02/17 17:54 Gram Stain - Final Shoulder - Eswab 05/02/17 17:54 Gram Stain - Final Shoulder - Eswab 05/02/17 17:54 Mycobacterial Smear (JOSE A) - Final Shoulder - Eswab Mycobacterial Culture - Final 05/02/17 18:22 Mycobacterial Smear (JOSE A) - Final Shoulder - Tissue 05/02/17 18:22 Gram Stain - Final Shoulder - Tissue 05/01/17 16:46 Gram Stain - Final Shoulder - Aspirate Laboratory Results 05/04/17 06:27 05/04/17 10:45 05/03/17 05/04/17 05/05/17 05:59 05:59 05:59 Intake Total 678.1 4582.7 Output Total 990 470 200 Balance -311.9 4112.7 -200 - Physical Exam General Appearance: alert, no apparent distress Respiratory: lungs clear Cardiac/Chest: regular rate, rhythm Abdomen: normal bowel sounds, non-tender, soft Skin: other (right shoulder with dressing. dressing labeled on not to take down ,so did not take down. ) ICD10 Worksheet Patient Problems: Problems Problem Status Onset Hyponatremia Acute Osteomyelitis Acute Sepsis Acute Altered mental status Acute Head injury Acute Scalp laceration Acute
[2017-05-04] MEDS ORDERED: HEPARIN 5,000 UNIT/0.5 ML SYR SC SCH (14:00)
[2017-05-04 15:50] LABS: ANION GAP 8 mEq/L (8-16); CARBON DIOXIDE 18 mEq/l (22-31); CHLORIDE 96 mEq/L (97-110); SODIUM 122 mEq/L (134-144)
[2017-05-04 17:32] LABS: HEMATOCRIT 22.4 % (40.0-51.0); HEMOGLOBIN 7.5 g/dL (13.7-17.5)
[2017-05-04 18:30] LABS: GLUCOSE 324 mg/dL (70-100)
[2017-05-04] MEDS: PANTOPRAZOLE SODIUM 40 MG TAB PO SCH (20:41)
[2017-05-04] MEDS: LATANOPROST 0.005% 2.5 ML OPHT DROPS RTEYE SCH (20:42)
[2017-05-04] MEDS: QUEtiapine FUMARATE 100 MG TAB PO SCH (20:43)
[2017-05-04 21:23] LABS: ANION GAP 11 mEq/L (8-16); CALCIUM 7.1 mg/dL (8.5-10.4); CARBON DIOXIDE 17 mEq/l (22-31); CHLORIDE 97 mEq/L (97-110); CREATININE 2.6 mg/dL (0.7-1.3); GLOMERULAR FILTRATION RATE 25; GLUCOSE 356 mg/dL (70-100); POTASSIUM 4.7 mEq/L (3.5-5.2); SODIUM 125 mEq/L (134-144)
[2017-05-04] MEDS ORDERED: INSULIN LISPRO 100 UNIT/ML SC ONE (23:30)
[2017-05-05] MEDS: ASCORBIC ACID 1,500 MG in D5W 100 ML IV SCH ×2 (03:23→10:02)
[2017-05-05] MEDS: HYDROCORTISONE 100 MG/2 ML VIAL IVP SCH ×2 (03:23→08:21)
[2017-05-05 03:39] LABS: HEMOGLOBIN 8.5 g/dL (13.7-17.5); MEAN CELL HEMOGLOBIN 28.1 pg (27.9-34.1); MEAN CELL VOLUME 82.8 fL (81.5-99.8); RED BLOOD CELL COUNT 3.02 10^6/uL (4.40-6.38); RED CELL DISTRIBUTION WIDTH 13.6 % (11.5-15.2)
[2017-05-05] MEDS: THIAMINE HCL 200 MG in NS 100 ML IV SCH (03:40)
[2017-05-05 04:31] LABS: ALBUMIN 2.2 g/dL (3.5-5.0); ANION GAP 10 mEq/L (8-16); CALCIUM 7.3 mg/dL (8.5-10.4); CARBON DIOXIDE 18 mEq/l (22-31); CHLORIDE 99 mEq/L (97-110); CREATININE 2.4 mg/dL (0.7-1.3); GLOMERULAR FILTRATION RATE 27; GLUCOSE 253 mg/dL (70-100); POTASSIUM 4.7 mEq/L (3.5-5.2); SODIUM 127 mEq/L (134-144)
[2017-05-05] MEDS: INSULIN LISPRO 100 UNIT/ML SC SCH ×3 (08:16→18:26)
[2017-05-05] MEDS: GABAPENTIN 300 MG CAP PO SCH ×3 (08:21→21:31)
[2017-05-05] MEDS: SODIUM CHLORIDE 1,000 MG TAB PO SCH ×2 (08:21→18:26)
[2017-05-05] MEDS: ceFAZolin 2 GM/DEXTROSE 100 ML IV SCH ×2 (08:27→18:26)
--- NOTE | 2017-05-05 10:03 | PCMIDPN ---
Assessment/Plan: Assessment/Plan: 1. Group B strep bacteremia with right shoulder abscess and distal clavicle osteomyelitis: - s/p wash out and distal clavicle excision on 05/02/17 - Currently on Ancef, renally dosed. Creatinine elevated at 2.4. Down from 2.6 - f/u blood cx ngtd at 24 hours. - Will follow labs closely -Will need prolonged course of antibiotics, of at least 6 weeks given above - care coordinated with Rn 2. DM/Cirrhosis/Blind 3. hx PCN allergy: rash Meds Ancef 2g q12- #4/42 from wash out/debridement Subjective: afebrile. shoulder pain present. denies sob, cough, abd pain. having bm's. remains in icu. Objective: Vital Signs Temp Pulse Resp BP Pulse Ox 36.5 C 94 18 131/66 H 97 05/05/17 06:00 05/05/17 08:00 05/05/17 08:00 05/05/17 08:00 05/05/17 08:00 Microbiology 05/02/17 17:54 Gram Stain - Final Shoulder - Eswab 05/02/17 17:54 Gram Stain - Final Shoulder - Eswab 05/02/17 17:54 Gram Stain - Final Shoulder - Eswab 05/02/17 17:54 Gram Stain - Final Shoulder - Eswab 05/02/17 17:54 Gram Stain - Final Shoulder - Eswab 05/02/17 17:54 Gram Stain - Final Shoulder - Eswab 05/02/17 18:22 Gram Stain - Final Shoulder - Tissue Laboratory Results 05/05/17 03:20 05/05/17 03:20 05/04/17 05/05/17 05/06/17 05:59 05:59 05:59 Intake Total 4582.7 3183.4 Output Total 470 1270 Balance 4112.7 1913.4 - Physical Exam General Appearance: alert, no apparent distress Respiratory: chest non-tender Cardiac/Chest: regular rate, rhythm Extremities: other (right shoulder with dressing, not to be taken down except by ortho.) Abdomen: normal bowel sounds, non-tender, soft, No distended Skin: No rash ICD10 Worksheet Patient Problems: Problems Problem Status Onset Hyponatremia Acute Osteomyelitis Acute Sepsis Acute Altered mental status Acute Head injury Acute Scalp laceration Acute
[2017-05-05] MEDS: BRIMONIDINE/TIMOLOL 5 ML OPHT.BTL RTEYE SCH ×2 (10:04→21:42)
[2017-05-05] MEDS: INSULIN GLARGINE 100 UNITS/ML SYRINGE SC SCH ×2 (10:05→21:31)
[2017-05-05] MEDS: oxyCODONE IR 5 MG TAB PO PRN ×4 (12:14→22:26)
[2017-05-05] MEDS: HEPARIN 5,000 UNIT/0.5 ML SYR SC SCH ×3 (12:14→21:29)
[2017-05-05] MEDS: HYDROmorphONE/DILAUDID 1 MG/ML INJ IVP PRN ×2 (12:14→14:25)
--- NOTE | 2017-05-05 12:15 | PDINTPN ---
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 Improved today, off pressors, starting to urinate. On Vitamin C protocol TITO: Cr down to 2.4. Starting to urinate. Diabetes: BSs up further today to 300s, on SSI Anemia: Hgb up to 8.5 after transfusion Plan: Continue Cefazolin. D/C steroids, Vitamin C. Increase oxycodone, insulin. Transfer to /. 05/05/17 12:16 Subjective: C/O shoulder pain despite oxycodone, rated 5/10. Denies dyspnea. Strength improved. Objective: Vital Signs Temp Pulse Resp BP Pulse Ox 36.5 C 84 16 100/74 96 05/05/17 06:00 05/05/17 10:00 05/05/17 10:00 05/05/17 10:00 05/05/17 10:00 Microbiology 05/02/17 17:54 Gram Stain - Final Shoulder - Eswab 05/02/17 17:54 Gram Stain - Final Shoulder - Eswab 05/02/17 17:54 Gram Stain - Final Shoulder - Eswab 05/02/17 17:54 Gram Stain - Final Shoulder - Eswab 05/02/17 17:54 Gram Stain - Final Shoulder - Eswab 05/02/17 17:54 Gram Stain - Final Shoulder - Eswab 05/02/17 18:22 Gram Stain - Final Shoulder - Tissue Laboratory Results 05/05/17 03:20 05/05/17 03:20 05/04/17 05/05/17 05/06/17 05:59 05:59 05:59 Intake Total 4582.7 3183.4 Output Total 470 1270 Balance 4112.7 1913.4 PT 20.6 SEC (12.0-15.0) H 05/03/17 14:20 INR 1.76 (0.83-1.16) H 05/03/17 14:20 Physical Exam - Physical Exam General Appearance: alert, no apparent distress EENT: normal ENT inspection Neck: normal inspection Respiratory: lungs clear, No normal breath sounds Cardiac/Chest: regular rate, rhythm, edema Abdomen: normal bowel sounds, non-tender Skin: normal color, warm/dry Extremities: other (shoulder dressed, dry.) Neuro/Psych: alert, normal mood/affect, oriented x 3 ICD10 Worksheet Patient Problems: Problems Problem Status Onset Hyponatremia Acute Osteomyelitis Acute Sepsis Acute Altered mental status Acute Head injury Acute Scalp laceration Acute
--- NOTE | 2017-05-05 12:25 | HOSPPROG ---
Hospitalist Progress Note Assessment/Plan: Septic shock secondary to right shoulder abscess / osteo of distal clavicle - Off pressors -cont Cefazolin, ID following -dc stress dose steroids as off pressors and problems with bg's -s/p Vit C / thiamine protocol Strep bacteremia secondary to multiple abscesses / osteo of right shoulder s/p removal of distal clavicle, acromion - POD #2. -cont atbx, repeat BCx NGTD -PICC when BCx's neg x48 hrs -will need minimum 6 weeks atbx per ID TITO - likely ATN vs pre-renal in setting of post-op hypotension / shock. FeNa 0.73. Cr trending down. -no hydro on u/s -avoid nephrotoxic meds Hyponatremia - Improving. 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 -outpt GI evaluation DM - transitioned off insulin gtt today, bg's still 200+ -up-titrate lantus, cont bolus insuin by SS -dc steroids which should help Bipolar disorder - stable Full code DVT PPLX - Change to Heparin from Lovenox due to poor renal function Dispo - cont inpt Subjective: Pt doing well. Pain controlled. No CP or SOB. No fevers. Tolerating diet, good uop. Objective: Vital Signs Temp Pulse Resp BP Pulse Ox 36.5 C 84 16 100/74 96 05/05/17 06:00 05/05/17 10:00 05/05/17 10:00 05/05/17 10:00 05/05/17 10:00 Microbiology 05/02/17 17:54 Gram Stain - Final Shoulder - Eswab 05/02/17 17:54 Gram Stain - Final Shoulder - Eswab 05/02/17 17:54 Gram Stain - Final Shoulder - Eswab 05/02/17 17:54 Gram Stain - Final Shoulder - Eswab 05/02/17 17:54 Gram Stain - Final Shoulder - Eswab 05/02/17 17:54 Gram Stain - Final Shoulder - Eswab 05/02/17 18:22 Gram Stain - Final Shoulder - Tissue Laboratory Results 05/05/17 03:20 05/05/17 03:20 05/04/17 05/05/17 05/06/17 05:59 05:59 05:59 Intake Total 4582.7 3183.4 Output Total 470 1270 Balance 4112.7 1913.4 PT 20.6 SEC (12.0-15.0) H 05/03/17 14:20 INR 1.76 (0.83-1.16) H 05/03/17 14:20 - Physical Exam Constitutional: no apparent distress Eyes: PERRL Ears, Nose, Mouth, Throat: moist mucous membranes Cardiovascular: regular rate and rhythym Respiratory: no respiratory distress Gastrointestinal: normoactive bowel sounds, soft, non-tender abdomen Skin: warm Musculoskeletal: other (RUE dressing c/d/i, peripheral extremities warm, well perfused, sensation intact) Neurologic: AAOx3 Psychiatric: interacting appropriately ICD10 Worksheet Patient Problems: Problems Problem Status Onset Hyponatremia Acute Osteomyelitis Acute Sepsis Acute Altered mental status Acute Head injury Acute Scalp laceration Acute
[2017-05-05] MEDS: ACETAMINOPHEN 325 MG TAB PO PRN (13:10)
--- NOTE | 2017-05-05 14:39 | SOAPPROG ---
SOAP Progress Note Assessment/Plan: Assessment: HPI: 62 year old male now POD#3 from a right shoulder multi-lobulated abscess incision and drainage with right lateral clavicle, right acromion, and right lateral scapular spine resection due to concomitant osteomyelitis on 05/02/17 PE: RUE: Incision nicely approximated with no drainage IDA drains with serosanguinous drainage which has tapered off of the past 12 hours +D, B, T, ECRL, ECRB, EPL, FPL, FDS, FDP +A / M / R / U SILT 2+ radial and ulnar pulses Assessment and Plan: 62 year old male now POD#3 from a right shoulder multi-lobulated abscess incision and drainage with right lateral clavicle, right acromion, and right lateral scapular spine resection due to concomitant osteomyelitis on 05/02/17 -Original dressing and drains removed -New occlusive dressing applied to be left in place -Keep right shoulder clean and dry -Continue on IV antibiotics per ID recommendations -Encourage gentle right shoulder, elbow, wrist, finger, and thumb ROM -Partial WB on RUE -FU as an outpatient in 1 week for a repeat wound check 05/05/17 14:35 Objective: Vital Signs Temp Pulse Resp BP Pulse Ox 36.5 C 84 16 100/74 96 05/05/17 06:00 05/05/17 10:00 05/05/17 10:00 05/05/17 10:00 05/05/17 10:00 Microbiology 05/02/17 18:22 Gram Stain - Final Shoulder - Tissue 05/02/17 17:54 Gram Stain - Final Shoulder - Eswab 05/02/17 17:54 Gram Stain - Final Shoulder - Eswab 05/02/17 17:54 Gram Stain - Final Shoulder - Eswab 05/02/17 17:54 Gram Stain - Final Shoulder - Eswab 05/02/17 17:54 Gram Stain - Final Shoulder - Eswab 05/02/17 17:54 Gram Stain - Final Shoulder - Eswab Laboratory Results 05/05/17 03:20 05/05/17 03:20 05/04/17 05/05/17 05/06/17 05:59 05:59 05:59 Intake Total 4582.7 3183.4 Output Total 470 1270 Balance 4112.7 1913.4 PT 20.6 SEC (12.0-15.0) H 05/03/17 14:20 INR 1.76 (0.83-1.16) H 05/03/17 14:20 ICD10 Worksheet Patient Problems: Problems Problem Status Onset Hyponatremia Acute Osteomyelitis Acute Sepsis Acute Altered mental status Acute Head injury Acute Scalp laceration Acute
--- NOTE | 2017-05-05 14:53 | SOAPPROG ---
SOAP Progress Note Assessment/Plan: Assessment/Plan: TITO: likely had ATN in setting of sepsis and shock as well as blood loss, Cr peaked at 2.6 yesterday and today is down to 2.4, lytes ok, nonoliguric. - No need for HD. - Will continue to monitor renal recovery. - Avoid hypotension and nephrotoxins. Anemia: s/p transfusions of PRBCs, will continue to monitor. Hyponatremia: Na improved to 127, on salt tabs, will continue to monitor. Metabolic acidosis: likely due to TITO, will monitor for now. Subjective: No acute events overnight. Pt had drains removed from shoulder today. He is overall feeling well, pain controlled, notes that he is urinating more now. Objective: Vital Signs Temp Pulse Resp BP Pulse Ox 36.5 C 84 16 100/74 96 05/05/17 06:00 05/05/17 10:00 05/05/17 10:00 05/05/17 10:00 05/05/17 10:00 Microbiology 05/02/17 18:22 Gram Stain - Final Shoulder - Tissue 05/02/17 17:54 Gram Stain - Final Shoulder - Eswab 05/02/17 17:54 Gram Stain - Final Shoulder - Eswab 05/02/17 17:54 Gram Stain - Final Shoulder - Eswab 05/02/17 17:54 Gram Stain - Final Shoulder - Eswab 05/02/17 17:54 Gram Stain - Final Shoulder - Eswab 05/02/17 17:54 Gram Stain - Final Shoulder - Eswab Laboratory Results 05/05/17 03:20 05/05/17 03:20 05/04/17 05/05/17 05/06/17 05:59 05:59 05:59 Intake Total 4582.7 3183.4 Output Total 470 1270 Balance 4112.7 1913.4 PT 20.6 SEC (12.0-15.0) H 05/03/17 14:20 INR 1.76 (0.83-1.16) H 05/03/17 14:20 General: alert and oriented, no acute distress Eyes: EOMI, PERRL OP: CLear CV: RRR Resp: CTA bilat, nonlabored respirations Abd: Soft, NT Ext: +trace edema BLE Neuro: no asterixis Psych: cooperative, appropriate mood and affect ICD10 Worksheet Patient Problems: Problems Problem Status Onset Hyponatremia Acute Osteomyelitis Acute Sepsis Acute Altered mental status Acute Head injury Acute Scalp laceration Acute
[2017-05-05 15:35] LABS: ALBUMIN 2.2 g/dL (3.5-5.0); ANION GAP 8 mEq/L (8-16); CALCIUM 7.7 mg/dL (8.5-10.4); CARBON DIOXIDE 19 mEq/l (22-31); CHLORIDE 99 mEq/L (97-110); CREATININE 2.1 mg/dL (0.7-1.3); GLOMERULAR FILTRATION RATE 32; GLUCOSE 218 mg/dL (70-100); POTASSIUM 3.9 mEq/L (3.5-5.2); SODIUM 126 mEq/L (134-144)
[2017-05-05] MEDS ORDERED: SODIUM CHLORIDE 1,000 MG TAB PO ONE (16:43)
[2017-05-05 19:53] LABS: ALBUMIN 2.1 g/dL (3.5-5.0); ANION GAP 9 mEq/L (8-16); CALCIUM 7.8 mg/dL (8.5-10.4); CARBON DIOXIDE 19 mEq/l (22-31); CHLORIDE 99 mEq/L (97-110); GLOMERULAR FILTRATION RATE 34; GLUCOSE 244 mg/dL (70-100); SODIUM 127 mEq/L (134-144)
[2017-05-05] MEDS: PANTOPRAZOLE SODIUM 40 MG TAB PO SCH (21:31)
[2017-05-05] MEDS: LATANOPROST 0.005% 2.5 ML OPHT DROPS RTEYE SCH (21:46)
[2017-05-05] MEDS: QUEtiapine FUMARATE 100 MG TAB PO SCH (21:47)
[2017-05-06] MEDS: ACETAMINOPHEN 325 MG TAB PO PRN ×2 (01:43→14:21)
[2017-05-06] MEDS: HYDROmorphONE/DILAUDID 1 MG/ML INJ IVP PRN (03:53)
[2017-05-06] MEDS: oxyCODONE IR 5 MG TAB PO PRN ×4 (03:57→20:14)
[2017-05-06 04:31] LABS: HEMATOCRIT 26.4 % (40.0-51.0); HEMOGLOBIN 9.1 g/dL (13.7-17.5)
[2017-05-06 04:59] LABS: ALBUMIN 2.1 g/dL (3.5-5.0); ANION GAP 8 mEq/L (8-16); CALCIUM 7.7 mg/dL (8.5-10.4); CARBON DIOXIDE 20 mEq/l (22-31); CHLORIDE 99 mEq/L (97-110); CREATININE 1.8 mg/dL (0.7-1.3); GLOMERULAR FILTRATION RATE 38; GLUCOSE 199 mg/dL (70-100); POTASSIUM 4.2 mEq/L (3.5-5.2); SODIUM 127 mEq/L (134-144)
[2017-05-06] MEDS: ceFAZolin 2 GM/DEXTROSE 100 ML IV SCH ×2 (06:09→18:49)
[2017-05-06] MEDS: HEPARIN 5,000 UNIT/0.5 ML SYR SC SCH ×3 (06:09→21:56)
[2017-05-06] MEDS: SODIUM CHLORIDE 1,000 MG TAB PO SCH ×2 (07:55→18:40)
[2017-05-06] MEDS: GABAPENTIN 300 MG CAP PO SCH ×3 (07:55→21:56)
[2017-05-06] MEDS: INSULIN GLARGINE 100 UNITS/ML SYRINGE SC SCH ×2 (07:56→20:31)
[2017-05-06] MEDS: INSULIN LISPRO 100 UNIT/ML SC SCH ×3 (07:56→18:35)
[2017-05-06] MEDS: BRIMONIDINE/TIMOLOL 5 ML OPHT.BTL RTEYE SCH ×2 (07:58→20:16)
--- NOTE | 2017-05-06 08:19 | SOAPPROG ---
SOAP Progress Note Assessment/Plan: Assessment:Plan: ARF-baseline creatinine 0.8 -peaked at 2.6 on 05/04/17 -due to ATN from sepsis and hypotension -improving -down from 2.4 to 1.8 overnight -urine output okay -urinalysis with blood and protein -will repeat now that recovering and check Up/Uc again Hyponatremia-multifactorial -CPM with salt tabs and fluid restriction -should resolve as ARF clears and volume status normalizes ID-on abx Dispo-pending 05/06/17 08:19 Subjective: stable overnite Objective: Vital Signs Temp Pulse Resp BP Pulse Ox 36.6 C 74 16 125/69 H 99 05/06/17 04:19 05/06/17 04:19 05/06/17 04:19 05/06/17 04:19 05/06/17 04:19 Microbiology 05/02/17 18:22 Gram Stain - Final Shoulder - Tissue Laboratory Results 05/06/17 04:09 05/06/17 04:09 05/05/17 05/06/17 05/07/17 05:59 05:59 05:59 Intake Total 3183.4 2006 Output Total 1270 1800 Balance 1913.4 206 PT 20.6 SEC (12.0-15.0) H 05/03/17 14:20 INR 1.76 (0.83-1.16) H 05/03/17 14:20 Physical Exam - Physical Exam General Appearance: WD/WN, alert, no apparent distress EENT: normal ENT inspection, other (blind) Neck: normal inspection Respiratory: lungs clear, normal breath sounds, decreased breath sounds (at bases), No respiratory distress Cardiac/Chest: regular rate, rhythm, No diastolic murmur, No systolic murmur Abdomen: normal bowel sounds, non-tender, soft Back: Normal inspection Skin: normal color, warm/dry Extremities: swelling Neuro/Psych: alert, normal mood/affect ICD10 Worksheet Patient Problems: Problems Problem Status Onset Hyponatremia Acute Osteomyelitis Acute Sepsis Acute Altered mental status Acute Head injury Acute Scalp laceration Acute
[2017-05-06 11:56] LABS: COLOR YELLOW; LEUKOCYTE ESTERASE,URINE NEGATIVE (NEGATIVE); NITRITE,URINE NEGATIVE (NEGATIVE)
[2017-05-06 12:04] LABS: RANDOM URINE PROTEIN 24 mg/dL (0-11)
[2017-05-06 12:18] LABS: ALBUMIN 2.1 g/dL (3.5-5.0); ANION GAP 5 mEq/L (8-16); CALCIUM 7.7 mg/dL (8.5-10.4); CARBON DIOXIDE 21 mEq/l (22-31); CHLORIDE 101 mEq/L (97-110); CREATININE 1.6 mg/dL (0.7-1.3); GLOMERULAR FILTRATION RATE 44; GLUCOSE 125 mg/dL (70-100); SODIUM 127 mEq/L (134-144)
[2017-05-06 13:15] LABS: MUCUS TRACE /lpf (NONE-1+)
--- NOTE | 2017-05-06 13:15 | HOSPPROG ---
Hospitalist Progress Note Assessment/Plan: # Septic shock secondary to right shoulder abscess / osteo of distal clavicle - Off pressors- hemodynamically stable CXR (personally reviewed and interpreted) shows right shoulder infection -cont Cefazolin -stress dose steroids dc'd # Strep bacteremia secondary to multiple abscesses / osteo of right shoulder s/ p removal of distal clavicle, acromion - POD #3. repeat BCx 05/04 NGTD -cont cefazolin -can switch to PICC when BCx's neg x48 hrs -will need minimum 6 weeks abx per ID # TITO - suspected 2/2 ATN in setting of post-op hypotension. FeNa 0.73. 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, s/p 1 u prbc's, H&H 04/16 today -outpt GI evaluation # DM - transitioned off insulin gtt yesterday - BS improved from 300's to 120- 190 overnight -cont up-titrate lantus - cont SSI # Bipolar disorder - stable # Full code # diet - DM diet # DVT PPLX - Change to Heparin from Lovenox due to poor renal function I have discussed the case with ID - pt will continue on current antibiotics - monitoring Bcx from 05/04 Subjective: good appetite Objective: Vital Signs Temp Pulse Resp BP Pulse Ox 36.7 C 94 16 118/62 98 05/06/17 08:23 05/06/17 08:23 05/06/17 08:23 05/06/17 08:23 05/06/17 08:23 Microbiology 05/02/17 17:54 Gram Stain - Final Shoulder - Eswab 05/02/17 17:54 Gram Stain - Final Shoulder - Eswab 05/02/17 17:54 Gram Stain - Final Shoulder - Eswab 05/02/17 18:22 Gram Stain - Final Shoulder - Tissue 05/02/17 17:54 Gram Stain - Final Shoulder - Eswab 05/01/17 16:46 Gram Stain - Final Shoulder - Aspirate Laboratory Results 05/06/17 04:09 05/06/17 11:25 05/05/17 05/06/17 05/07/17 05:59 05:59 05:59 Intake Total 3183.4 2005 Output Total 1270 1800 125 Balance 1913.4 206 -125 PT 20.6 SEC (12.0-15.0) H 05/03/17 14:20 INR 1.76 (0.83-1.16) H 05/03/17 14:20 - Physical Exam Constitutional: chronically ill appearing Eyes: anicteric sclera Ears, Nose, Mouth, Throat: moist mucous membranes Cardiovascular: regular rate and rhythym Respiratory: no respiratory distress Gastrointestinal: normoactive bowel sounds Genitourinary: no bladder fullness Skin: normal color Musculoskeletal: No asymmetric calves Neurologic: AAOx3 Psychiatric: interacting appropriately Lymph, Heme, Immunologic: no cervical LAD ICD10 Worksheet Patient Problems: Problems Problem Status Onset Hyponatremia Acute Osteomyelitis Acute Sepsis Acute Altered mental status Acute Head injury Acute Scalp laceration Acute
--- NOTE | 2017-05-06 14:43 | PCMIDPN ---
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 Covered currently on cefazolin. Doing well clinically although still with significant postoperative pain. Plan to treat with cefazolin for a total of 6 weeks from surgery. Plan: 1) Continue IV cefazolin at present dose. 2) Follow surgical recovery. 3) Discharge once stable to SNF to complete therapy. 05/07/17 09:09 Subjective: Patient is sitting up in his hospital bed. Good appetite. No fevers or chills. Complains of R shoulder pain from surgery. No rash or itching. Objective: cefazolin #3/ Vital Signs Temp Pulse Resp BP Pulse Ox 36.7 C 94 16 118/62 98 05/06/17 08:23 05/06/17 08:23 05/06/17 08:23 05/06/17 08:23 05/06/17 08:23 Microbiology 05/02/17 17:54 Gram Stain - Final Shoulder - Eswab 05/02/17 17:54 Gram Stain - Final Shoulder - Eswab 05/02/17 17:54 Gram Stain - Final Shoulder - Eswab 05/02/17 17:54 Gram Stain - Final Shoulder - Eswab 05/02/17 17:54 Gram Stain - Final Shoulder - Eswab 05/02/17 18:22 Gram Stain - Final Shoulder - Tissue 05/02/17 17:54 Gram Stain - Final Shoulder - Eswab 05/01/17 16:46 Gram Stain - Final Shoulder - Aspirate Laboratory Results 05/06/17 04:09 05/06/17 11:25 05/05/17 05/06/17 05/07/17 05:59 05:59 05:59 Intake Total 3183.4 2006 Output Total 1270 1800 275 Balance 1913.4 206 -275 - Physical Exam General Appearance: WD/WN, alert, no apparent distress, non-toxic Respiratory: lungs clear, normal breath sounds, No respiratory distress Cardiac/Chest: regular rate, rhythm, No tachycardia Extremities: No non-tender, No normal inspection (R shoulder post-operative dressing intact without surrounding erythema) Skin: normal color, warm/dry, No rash Neuro/Psych: alert, normal mood/affect, oriented x 3 ICD10 Worksheet Patient Problems: Problems Problem Status Onset Hyponatremia Acute Osteomyelitis Acute Sepsis Acute Altered mental status Acute Head injury Acute Scalp laceration Acute
[2017-05-06] MEDS: CHOLECALCIFEROL VIT D3 1,000 UNITS TAB PO SCH (17:22)
[2017-05-06 19:14] LABS: ALBUMIN 2.2 g/dL (3.5-5.0); ANION GAP 7 mEq/L (8-16); CALCIUM 7.6 mg/dL (8.5-10.4); CARBON DIOXIDE 21 mEq/l (22-31); CHLORIDE 103 mEq/L (97-110); CREATININE 1.5 mg/dL (0.7-1.3); GLOMERULAR FILTRATION RATE 47; GLUCOSE 108 mg/dL (70-100); POTASSIUM 4.2 mEq/L (3.5-5.2); SODIUM 131 mEq/L (134-144)
[2017-05-06] MEDS: PANTOPRAZOLE SODIUM 40 MG TAB PO SCH ×2 (20:14→20:28)
[2017-05-06] MEDS: QUEtiapine FUMARATE 100 MG TAB PO SCH ×2 (20:14→20:29)
[2017-05-06] MEDS: LATANOPROST 0.005% 2.5 ML OPHT DROPS RTEYE SCH (20:16)
[2017-05-07] MEDS: oxyCODONE IR 5 MG TAB PO PRN ×6 (00:14→22:18)
[2017-05-07 05:24] LABS: % IMMATURE GRANULYOCYTES 1.8 % (0.0-1.1); ABSOLUTE IMMATURE GRANULOCYTES 0.08 10^3/uL (0.00-0.10); ADD DIFF? NO; ADD MORPH? NO; ADD SCAN? NO; ATYPICAL LYMPHOCYTE FLAG 0 (0-99); FRAGMENT RBC FLAG 30 (0-99); HEMATOCRIT 29.3 % (40.0-51.0); HEMOGLOBIN 9.8 g/dL (13.7-17.5); LEFT SHIFT FLG 10 (0-99); LIPEMIA HEMOLYSIS FLAG 80 (0-99); MEAN CELL HEMOGLOBIN 27.6 pg (27.9-34.1); MEAN CELL HEMOGLOBIN CONCENTR. 33.4 g/dL (32.4-36.7); MEAN CELL VOLUME 82.5 fL (81.5-99.8); MEAN PLATELET VOLUME 9.3 fL (8.7-11.7); PLATELET CLUMPS FLAG 0 (0-99); PLATELET COUNT 204 10^3/uL (150-400); RED BLOOD CELL COUNT 3.55 10^6/uL (4.40-6.38); RED CELL DISTRIBUTION WIDTH 13.5 % (11.5-15.2)
[2017-05-07 05:30] LABS: ANION GAP 5 mEq/L (8-16); CARBON DIOXIDE 21 mEq/l (22-31); CHLORIDE 105 mEq/L (97-110); CREATININE 1.4 mg/dL (0.7-1.3); GLOMERULAR FILTRATION RATE 51; GLUCOSE 114 mg/dL (70-100); MAGNESIUM 2.1 mg/dL (1.6-2.3); POTASSIUM 4.6 mEq/L (3.5-5.2); SODIUM 131 mEq/L (134-144)
[2017-05-07] MEDS: HEPARIN 5,000 UNIT/0.5 ML SYR SC SCH ×3 (06:25→22:18)
[2017-05-07] MEDS: ceFAZolin 2 GM/DEXTROSE 100 ML IV SCH ×3 (06:25→21:59)
[2017-05-07] MEDS: SODIUM CHLORIDE 1,000 MG TAB PO SCH ×2 (08:29→18:15)
[2017-05-07] MEDS: BRIMONIDINE/TIMOLOL 5 ML OPHT.BTL RTEYE SCH ×2 (08:29→20:41)
[2017-05-07] MEDS: GABAPENTIN 300 MG CAP PO SCH ×3 (08:29→21:58)
[2017-05-07] MEDS: INSULIN LISPRO 100 UNIT/ML SC SCH ×3 (08:35→18:14)
[2017-05-07] MEDS ORDERED: ALTEPLASE 2 MG VIAL IVP PRN (09:41)
[2017-05-07] MEDS: INSULIN GLARGINE 100 UNITS/ML SYRINGE SC SCH ×2 (09:42→21:58)
--- NOTE | 2017-05-07 10:39 | PCMIDPN ---
Assessment/Plan: Assessment/Plan: 1. Group B strep bacteremia with right shoulder abscess and distal clavicle osteomyelitis: - s/p wash out and distal clavicle excision on 05/02/17 - Currently on Ancef. Renal function improved. Will change dose to 2g q8. Follow labs closely - f/u blood cx ngtd at 48 hours. - will place picc line -Will need prolonged course of antibiotics, of at least 6 weeks given above -[facility] filled out. f/u appt in office next week with Dr. Saldana. - care coordinated with Rn, hospialist team. 2. DM/Cirrhosis/Blind 3. hx PCN allergy: rash Meds Ancef 2g q8- # from wash out/debridement Subjective: afebrile. Denies sob, abd pain or diarrhea. continues with right shoulder pain. Objective: Vital Signs Temp Pulse Resp BP Pulse Ox 37.0 C 100 18 132/80 H 96 05/07/17 08:07 05/07/17 08:07 05/07/17 08:07 05/07/17 08:07 05/07/17 08:07 Microbiology 05/02/17 17:54 Gram Stain - Final Shoulder - Eswab 05/02/17 17:54 Gram Stain - Final Shoulder - Eswab 05/02/17 17:54 Gram Stain - Final Shoulder - Eswab 05/02/17 17:54 Gram Stain - Final Shoulder - Eswab 05/02/17 17:54 Gram Stain - Final Shoulder - Eswab 05/02/17 18:22 Gram Stain - Final Shoulder - Tissue 05/02/17 17:54 Gram Stain - Final Shoulder - Eswab 05/01/17 16:46 Gram Stain - Final Shoulder - Aspirate Laboratory Results 05/07/17 05:00 05/07/17 05:00 05/06/17 05/07/17 05/08/17 05:59 05:59 05:59 Intake Total 2005 1300 Output Total 1800 1625 Balance 206 -325 - Physical Exam General Appearance: alert, no apparent distress Respiratory: lungs clear Cardiac/Chest: regular rate, rhythm Extremities: No swelling Abdomen: normal bowel sounds, non-tender, soft, No distended Skin: No rash - Time Spent With Patient Time Spent with Patient: greater than 35 minutes Time Spent with Patient: Greater than 35 minutes spent on this patients care, greater than 50% of time spent counseling, educating, and coordinating care regarding the above mentioned plan. ICD10 Worksheet Patient Problems: Problems Problem Status Onset Hyponatremia Acute Osteomyelitis Acute Sepsis Acute Altered mental status Acute Head injury Acute Scalp laceration Acute
--- NOTE | 2017-05-07 10:43 | PDIAF ---
- Diagnosis Diagnosis: Group B strep sepsis/right shoulder abscess/clavicle osteomyelitis Code Status: Full Code - Medication Management Discharge Medications: Medications to Continue on Transfer Brimonidine/Timolol [Combigan (*)] 1 drop RTEYE BID 09/09/16 [Last Taken ] Calcium Carbonate [Tums 500MG (*)] 1,000 mg PO Q12H PRN 09/09/16 [Last Taken Unknown] Cholecalciferol Vit D3 [Vitamin D3 (*)] 5,000 units PO MO 09/09/16 [Last Taken 09/03/16] Latanoprost 0.005% [Xalatan 0.005% (*)] 1 drops RTEYE HS 09/09/16 [Last Taken ] Magnesium Hydroxide [Milk of Magnesia] 30 ml PO DAILY PRN 09/09/16 [Last Taken Unknown] Omeprazole [Prilosec 20 mg] 20 mg PO HS 09/09/16 [Last Taken 09/09/16] Acetaminophen [Tylenol 325mg (*)] 650 mg PO Q6HRS PRN 05/01/17 [Last Taken Unknown] Diclofenac Sodium 1% [Voltaren Gel (*)] 1 maxwell TP QID PRN 05/01/17 [Last Taken Unknown] Gabapentin [Neurontin 300 MG (*)] 300 mg PO TID 05/01/17 [Last Taken Unknown] Insulin Aspart [Novolog Flexpen] 4 unit SQ BID 05/01/17 [Last Taken Unknown] Insulin Detemir [Levemir] 30 unit SQ BID 05/01/17 [Last Taken Unknown] Ondansetron Odt [Zofran Odt 4 mg (*)] 4 mg PO Q6HRS PRN 05/01/17 [Last Taken Unknown] QUEtiapine FUMARATE [Seroquel 100 mg (*)] 100 mg PO DAILY 05/01/17 [Last Taken Unknown] oxyCODONE IR [Oxycodone Ir (*)] 5 mg PO Q4HRS PRN 05/01/17 [Last Taken Unknown] Supervisory Lifeguard Antibiotics: Ancef 2g IV q8 [facility] Antibiotic Stop Date: 06/17/17 Discharge Medications: Refer to the Discharge Home Medication list for PRN reason. PICC Care - Routine: Yes - Labs/Radiology CBC Date: 05/13/17 (q mondays) CMP Date: 05/13/17 (q mondays) CRP Date: 05/13/17 (q mondays) Call or Fax Lab and Imaging Results to: Dr. Saldana- [phone] - Follow Up Care Current Providers and Referrals: Patient,NotPresent [Unknown] - As per Instructions Reji Saldana MD [Medical Doctor] - 05/15/17 10:30 am (f/u wiht Dr. Saldana ( INfectious Diseases) 05/15/17 at 10:30am. Check in time is at: 10:10am. Thanks. )
--- NOTE | 2017-05-07 11:35 | SOAPPROG ---
SOAP Progress Note Assessment/Plan: Assessment: 1. Hyponatremia Total body overloaded. Na is better, but not normal. He is on 1200ml fluid restriction. He is not very comfortable on this. Continue to increase protein intake. Will start loop diuretic given edema. Eventually need to stop NaCl tabs. 2. Renal Nl baseline Cr. He has proteinuria, which is likely diabetic kidney disease. He needs renal follow up on discharge. 3. Shoulder abscess Remains on antibiotics. Plan: 05/07/17 11:32 05/07/17 11:36 Subjective: Doing ok Objective: Vital Signs Temp Pulse Resp BP Pulse Ox 37.0 C 100 18 132/80 H 96 05/07/17 08:07 05/07/17 08:07 05/07/17 08:07 05/07/17 08:07 05/07/17 08:07 Microbiology 05/02/17 17:54 Gram Stain - Final Shoulder - Eswab 05/02/17 17:54 Gram Stain - Final Shoulder - Eswab 05/02/17 17:54 Gram Stain - Final Shoulder - Eswab 05/02/17 17:54 Gram Stain - Final Shoulder - Eswab 05/02/17 17:54 Gram Stain - Final Shoulder - Eswab 05/02/17 18:22 Gram Stain - Final Shoulder - Tissue 05/02/17 17:54 Gram Stain - Final Shoulder - Eswab 05/01/17 16:46 Gram Stain - Final Shoulder - Aspirate Laboratory Results 05/07/17 05:00 05/07/17 05:00 05/06/17 05/07/17 05/08/17 05:59 05:59 05:59 Intake Total 2005 1300 Output Total 1800 1625 150 Balance 206 -325 -150 PT 20.6 SEC (12.0-15.0) H 05/03/17 14:20 INR 1.76 (0.83-1.16) H 05/03/17 14:20 Physical Exam - Physical Exam General Appearance: no apparent distress Respiratory: lungs clear Cardiac/Chest: regular rate, rhythm Extremities: pedal edema Neuro/Psych: oriented x 3 ICD10 Worksheet Patient Problems: Problems Problem Status Onset Hyponatremia Acute Osteomyelitis Acute Sepsis Acute Altered mental status Acute Head injury Acute Scalp laceration Acute
--- NOTE | 2017-05-07 15:10 | HOSPPROG ---
Hospitalist Progress Note Assessment/Plan: # Septic shock secondary to right shoulder abscess / osteo of distal clavicle - Off pressors- hemodynamically stable MRI shoulder (personally reviewed and interpreted) shows extensive abscess including intraarticular -cont Cefazolin- increasing dose today as renal function improving -stress dose steroids dc'd # Strep bacteremia secondary to multiple abscesses / osteo of right shoulder s/ p removal of distal clavicle, acromion - POD #3. repeat BCx 05/04 NGTD -cont cefazolin -place PICC today -will need minimum 6 weeks abx per ID # TITO - suspected 2/2 ATN in setting of post-op hypotension. FeNa 0.73. 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, s/p 1 u prbc's, H&H 04/18 today -outpt GI evaluation # DM - transitioned off insulin gtt yesterday - BS improved from 300's to 100's overnight -cont up-titrate lantus - cont SSI # Bipolar disorder - stable # Full code # diet - DM diet # DVT PPLX - Change to Heparin from Lovenox due to poor renal function I have discussed the case with ID - pt will continue on current antibiotics - monitoring Bcx from 05/04 Subjective: good appetite - shoulder pain Objective: Vital Signs Temp Pulse Resp BP Pulse Ox 37.0 C 100 18 132/80 H 96 05/07/17 08:07 05/07/17 08:07 05/07/17 08:07 05/07/17 08:07 05/07/17 08:07 Microbiology 05/02/17 17:54 Gram Stain - Final Shoulder - Eswab 05/02/17 17:54 Gram Stain - Final Shoulder - Eswab 05/02/17 17:54 Gram Stain - Final Shoulder - Eswab 05/02/17 17:54 Gram Stain - Final Shoulder - Eswab 05/02/17 17:54 Gram Stain - Final Shoulder - Eswab 05/02/17 18:22 Gram Stain - Final Shoulder - Tissue 05/02/17 17:54 Gram Stain - Final Shoulder - Eswab 05/01/17 16:46 Gram Stain - Final Shoulder - Aspirate 05/02/17 18:22 Mycobacterial Smear (JOSE A) - Final Shoulder - Tissue Laboratory Results 05/07/17 05:00 05/07/17 05:00 05/06/17 05/07/17 05/08/17 05:59 05:59 05:59 Intake Total 2005 1300 Output Total 1800 1625 750 Balance 206 -325 -750 PT 20.6 SEC (12.0-15.0) H 05/03/17 14:20 INR 1.76 (0.83-1.16) H 05/03/17 14:20 - Physical Exam Constitutional: chronically ill appearing Eyes: anicteric sclera Ears, Nose, Mouth, Throat: moist mucous membranes Cardiovascular: regular rate and rhythym Respiratory: no respiratory distress, no rales or rhonchi Gastrointestinal: normoactive bowel sounds, soft, non-tender abdomen Genitourinary: no bladder fullness Skin: warm Musculoskeletal: No asymmetric calves Neurologic: AAOx3, other (blind) Psychiatric: interacting appropriately, not anxious Lymph, Heme, Immunologic: no cervical LAD ICD10 Worksheet Patient Problems: Problems Problem Status Onset Hyponatremia Acute Osteomyelitis Acute Sepsis Acute Altered mental status Acute Head injury Acute Scalp laceration Acute
--- NOTE | 2017-05-07 16:09 | ASMTCMCOM ---
CM Note CM Note Notes: Dr. Juan, pts surgeon asked of Dr. Christian that patient not return to [facility]. Spoke with Leonor at [facility] who said they are willing to assess patient to see if he is appropriate for them. indiciated that SNF level would be appropriate initially wiith a transfer then to LTC. Referral sent to [facility]. Case management will continue to follow. Date Signed: 05/07/2017 04:08 PM Electronically Signed By:JANNY Wilkerson
[2017-05-07 18:04] LABS: GLUCOSE 264 mg/dL (70-100)
--- NOTE | 2017-05-07 18:20 | SOAPPROG ---
SOAP Progress Note Assessment/Plan: SOAP Progress Note Assessment/Plan: Assessment: HPI: 62 year old male now POD#5 from a right shoulder multi-lobulated abscess incision and drainage with right lateral clavicle, right acromion, and right lateral scapular spine resection due to concomitant osteomyelitis on 05/02/17 PE: RUE: Incision nicely approximated with no drainage IDA drains with serosanguinous drainage which has tapered off of the past 12 hours +D, B, T, ECRL, ECRB, EPL, FPL, FDS, FDP +A / M / R / U SILT 2+ radial and ulnar pulses Assessment and Plan: 62 year old male now POD#5 from a right shoulder multi-lobulated abscess incision and drainage with right lateral clavicle, right acromion, and right lateral scapular spine resection due to concomitant osteomyelitis on 05/02/17 -Original dressing and drains removed. -New occlusive dressing applied to be left in place. Reinforce if needed but do not remove dressing -Keep right shoulder clean and dry -Continue on IV antibiotics per ID recommendations -Encourage gentle right shoulder, elbow, wrist, finger, and thumb ROM -Partial WB on RUE -Patient will likely need to be discharged to a retirement due to medical co-morbidities as well as need for assistance in transferring -FU as an outpatient in 1 week for a repeat wound check 05/07/17 18:17 Objective: Vital Signs Temp Pulse Resp BP Pulse Ox 36.6 C 110 H 20 145/80 H 98 05/07/17 16:54 05/07/17 16:54 05/07/17 16:54 05/07/17 16:54 05/07/17 16:54 Microbiology 05/02/17 17:54 Gram Stain - Final Shoulder - Eswab 05/02/17 17:54 Gram Stain - Final Shoulder - Eswab 05/02/17 17:54 Gram Stain - Final Shoulder - Eswab 05/02/17 17:54 Gram Stain - Final Shoulder - Eswab 05/02/17 17:54 Gram Stain - Final Shoulder - Eswab 05/02/17 18:22 Gram Stain - Final Shoulder - Tissue 05/02/17 17:54 Gram Stain - Final Shoulder - Eswab 05/01/17 16:46 Gram Stain - Final Shoulder - Aspirate 05/02/17 18:22 Mycobacterial Smear (JOSE A) - Final Shoulder - Tissue Laboratory Results 05/07/17 05:00 05/07/17 17:25 05/06/17 05/07/17 05/08/17 05:59 05:59 05:59 Intake Total 2005 1300 1100 Output Total 1800 1629 1470 Balance 206 -325 -370 PT 20.6 SEC (12.0-15.0) H 05/03/17 14:20 INR 1.76 (0.83-1.16) H 05/03/17 14:20 ICD10 Worksheet Patient Problems: Problems Problem Status Onset Hyponatremia Acute Osteomyelitis Acute Sepsis Acute Altered mental status Acute Head injury Acute Scalp laceration Acute
[2017-05-07] MEDS: QUEtiapine FUMARATE 100 MG TAB PO SCH (20:40)
[2017-05-07] MEDS: PANTOPRAZOLE SODIUM 40 MG TAB PO SCH (20:41)
[2017-05-07] MEDS: LATANOPROST 0.005% 2.5 ML OPHT DROPS RTEYE SCH (20:42)
[2017-05-07] MEDS: ACETAMINOPHEN 325 MG TAB PO PRN (20:49)
[2017-05-07 22:28] LABS: GLUCOSE 265 mg/dL (70-100)
[2017-05-08] MEDS: oxyCODONE IR 5 MG TAB PO PRN ×4 (02:59→19:41)
[2017-05-08] MEDS: HEPARIN 5,000 UNIT/0.5 ML SYR SC SCH ×3 (05:56→22:33)
[2017-05-08] MEDS: ceFAZolin 2 GM/DEXTROSE 100 ML IV SCH (06:08)
[2017-05-08] MEDS: ACETAMINOPHEN 325 MG TAB PO PRN (06:08)
[2017-05-08] MEDS: SODIUM CHLORIDE 1,000 MG TAB PO SCH ×2 (07:36→18:38)
[2017-05-08] MEDS: FUROSEMIDE 40 MG TAB PO SCH ×3 (07:37→15:02)
[2017-05-08 07:40] LABS: ANION GAP 5 mEq/L (8-16); CALCIUM 7.5 mg/dL (8.5-10.4); CARBON DIOXIDE 23 mEq/l (22-31); CHLORIDE 106 mEq/L (97-110); CREATININE 1.1 mg/dL (0.7-1.3); GLOMERULAR FILTRATION RATE > 60; GLUCOSE 123 mg/dL (70-100); POTASSIUM 4.8 mEq/L (3.5-5.2); SODIUM 134 mEq/L (134-144)
[2017-05-08] MEDS: INSULIN LISPRO 100 UNIT/ML SC SCH ×3 (07:58→18:38)
[2017-05-08] MEDS: GABAPENTIN 300 MG CAP PO SCH ×3 (08:43→22:31)
[2017-05-08] MEDS: INSULIN GLARGINE 100 UNITS/ML SYRINGE SC SCH ×2 (08:44→22:35)
[2017-05-08] MEDS: BRIMONIDINE/TIMOLOL 5 ML OPHT.BTL RTEYE SCH ×2 (08:45→22:38)
--- NOTE | 2017-05-08 11:20 | SOAPPROG ---
SOAP Progress Note Assessment/Plan: Assessment: TITO resolving Strep shoulder infection, S/P I and D UOP better on furosemide Edema better proteinuria, non-nephrotic, likely due to DM-2 Plan: continue ABX continue therapies Looking for outpaient rehab spot will need renal follow up as outpatient will need JULIA-I or ARB for proteinuria/DM-2 once we know his renal function is stable continue diuretics as is for now 05/08/17 11:16 Subjective: Spirits good "I'm peeing like crazy" denies cp sob nausea vomiting anorexia or fatigue wants a rehab spot that is NOT [facility] [place] Objective: Vital Signs Temp Pulse Resp BP Pulse Ox 36.4 C 89 16 126/69 H 98 05/08/17 07:32 05/08/17 07:32 05/08/17 07:32 05/08/17 07:32 05/08/17 07:32 Microbiology 05/02/17 17:54 Gram Stain - Final Shoulder - Eswab 05/02/17 17:54 Gram Stain - Final Shoulder - Eswab 05/02/17 17:54 Gram Stain - Final Shoulder - Eswab 05/02/17 17:54 Gram Stain - Final Shoulder - Eswab 05/02/17 17:54 Gram Stain - Final Shoulder - Eswab 05/02/17 18:22 Gram Stain - Final Shoulder - Tissue 05/02/17 17:54 Gram Stain - Final Shoulder - Eswab 05/01/17 16:46 Gram Stain - Final Shoulder - Aspirate 05/02/17 18:22 Mycobacterial Smear (JOSE A) - Final Shoulder - Tissue Laboratory Results 05/07/17 05:00 05/08/17 06:00 05/07/17 05/08/17 05/09/17 05:59 05:59 05:59 Intake Total 1300 1650 Output Total 1625 2120 Balance -325 -470 PT 20.6 SEC (12.0-15.0) H 05/03/17 14:20 INR 1.76 (0.83-1.16) H 05/03/17 14:20 Physical Exam - Physical Exam General Appearance: alert, no apparent distress Respiratory: lungs clear, No rhonchi, No wheezing Cardiac/Chest: regular rate, rhythm, edema, No friction rub Abdomen: normal bowel sounds, non-tender, soft, No distended Extremities: pedal edema Neuro/Psych: alert, normal mood/affect, oriented x 3, other (blind) ICD10 Worksheet Patient Problems: Problems Problem Status Onset Hyponatremia Acute Osteomyelitis Acute Sepsis Acute Altered mental status Acute Head injury Acute Scalp laceration Acute
[2017-05-08] MEDS: ceFAZolin 2 GM in D5W 100 ML IV SCH ×2 (13:56→22:40)
--- NOTE | 2017-05-08 14:47 | HOSPPROG ---
Hospitalist Progress Note Assessment/Plan: # Strep bacteremia secondary to multiple abscesses / osteo of right shoulder s/ p removal of distal clavicle, acromion - POD #5. repeat BCx 05/04 remain NGTD -cont cefazolin at increased dose - PICC placed -will need minimum 6 weeks abx per ID # Septic shock secondary to right shoulder abscess / osteo of distal clavicle - Off pressors- hemodynamically stable MRI shoulder (personally reviewed and interpreted) shows extensive abscess including intraarticular Discussed case with Orthopedic surgeon - he is very concerned about the patient returning to the living situation where he developed this abscess while requiring increased care in the post-operative recovery time period -cont Cefazolin # TITO - suspected 2/2 ATN in setting of post-op hypotension. FeNa 0.73. 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, s/p 1 u prbc's, H&H 04/19 today -outpt GI evaluation # DM - transitioned off insulin gtt yesterday - BS improved from 300's to 100's since discontinuation of steroids -cont up-titrate lantus -cont SSI # Bipolar disorder - stable # Full code # diet - DM diet # DVT PPLX - Change to Heparin from Lovenox due to poor renal function I have discussed the case with CM - we are working on placement for this patient to receive post-operative wound care Subjective: appetite is excellent Objective: Vital Signs Temp Pulse Resp BP Pulse Ox 36.4 C 89 16 126/69 H 98 05/08/17 07:32 05/08/17 07:32 05/08/17 07:32 05/08/17 07:32 05/08/17 07:32 Microbiology 05/02/17 17:54 Gram Stain - Final Shoulder - Eswab 05/02/17 17:54 Gram Stain - Final Shoulder - Eswab 05/02/17 17:54 Gram Stain - Final Shoulder - Eswab 05/02/17 17:54 Gram Stain - Final Shoulder - Eswab 05/02/17 17:54 Gram Stain - Final Shoulder - Eswab 05/02/17 18:22 Gram Stain - Final Shoulder - Tissue 05/02/17 17:54 Gram Stain - Final Shoulder - Eswab 05/01/17 16:46 Gram Stain - Final Shoulder - Aspirate 05/02/17 18:22 Mycobacterial Smear (JOSE A) - Final Shoulder - Tissue Laboratory Results 05/07/17 05:00 05/08/17 06:00 05/07/17 05/08/17 05/09/17 05:59 05:59 05:59 Intake Total 1300 1650 Output Total 1625 2120 250 Balance -325 -470 -250 PT 20.6 SEC (12.0-15.0) H 05/03/17 14:20 INR 1.76 (0.83-1.16) H 05/03/17 14:20 - Physical Exam Constitutional: chronically ill appearing Eyes: anicteric sclera Ears, Nose, Mouth, Throat: other (blind) Cardiovascular: regular rate and rhythym Respiratory: no respiratory distress, no rales or rhonchi Gastrointestinal: normoactive bowel sounds Genitourinary: no bladder fullness Skin: warm, normal color Musculoskeletal: No asymmetric calves Neurologic: AAOx3 Psychiatric: No agitated Lymph, Heme, Immunologic: no cervical LAD ICD10 Worksheet Patient Problems: Problems Problem Status Onset Hyponatremia Acute Osteomyelitis Acute Sepsis Acute Altered mental status Acute Head injury Acute Scalp laceration Acute
--- NOTE | 2017-05-08 15:52 | ASMTCMCOM ---
CM Note CM Note Notes: Spoke with Dr Vásquez this AM about Dr Juan requesting that pt not return to [facility]. Spoke with pt who confirmed that he does not want to return. Spoke with Jennifer at [facility] about pt and she had not been informed of pt's decision. She wanted her MD to do a doc-to-doc call with Dr Juan so they can understand his concerns and see if there is anything they can do to address them. Told her she needed to set that up. She also is planning on sending pt's ambassador at B/M to discuss the situation with pt. Meanwhile, referral faxed yesterday to [facility] for n LTC bed. A ULTC will need to be submitted as well. If pt does tx to [facility], pt will likely not be ready for DC to give [facility] time to process pt's ULTC. C/M to follow Date Signed: 05/08/2017 03:51 PM Electronically Signed By:Ruth Lynne LCSW
[2017-05-08] MEDS: PANTOPRAZOLE SODIUM 40 MG TAB PO SCH (22:32)
[2017-05-08] MEDS: QUEtiapine FUMARATE 100 MG TAB PO SCH (22:33)
[2017-05-08] MEDS: LATANOPROST 0.005% 2.5 ML OPHT DROPS RTEYE SCH (22:37)
[2017-05-09] MEDS: oxyCODONE IR 5 MG TAB PO PRN ×4 (03:20→18:47)
[2017-05-09] MEDS: HEPARIN 5,000 UNIT/0.5 ML SYR SC SCH ×3 (05:02→21:15)
[2017-05-09] MEDS: ceFAZolin 2 GM in D5W 100 ML IV SCH ×3 (05:12→21:17)
[2017-05-09 05:31] LABS: ALBUMIN 1.9 g/dL (3.5-5.0); ANION GAP 6 mEq/L (8-16); CALCIUM 7.7 mg/dL (8.5-10.4); CARBON DIOXIDE 24 mEq/l (22-31); CHLORIDE 101 mEq/L (97-110); CREATININE 0.9 mg/dL (0.7-1.3); GLOMERULAR FILTRATION RATE > 60; GLUCOSE 153 mg/dL (70-100); POTASSIUM 4.7 mEq/L (3.5-5.2); SODIUM 131 mEq/L (134-144)
[2017-05-09] MEDS: GABAPENTIN 300 MG CAP PO SCH ×3 (08:17→21:12)
[2017-05-09] MEDS: FUROSEMIDE 40 MG TAB PO SCH ×2 (08:18→15:03)
[2017-05-09] MEDS: INSULIN LISPRO 100 UNIT/ML SC SCH ×3 (08:19→18:46)
[2017-05-09] MEDS: SODIUM CHLORIDE 1,000 MG TAB PO SCH ×2 (08:19→18:46)
[2017-05-09] MEDS: INSULIN GLARGINE 100 UNITS/ML SYRINGE SC SCH ×2 (08:19→21:16)
--- NOTE | 2017-05-09 08:39 | SOAPPROG ---
SOAP Progress Note Assessment/Plan: Assessment: TITO resolved Strep shoulder infection, S/P I and D UOP better on furosemide Edema better still with shoulder pain, likely still with ADH secretion keeping Na level on the low side proteinuria, non-nephrotic, likely due to DM-2 Plan: continue ABX continue therapies Looking for outpaient rehab spot will need renal follow up as outpatient will need JULIA-I or ARB for proteinuria/DM-2 once we know his renal function is stable continue diuretics and fluid restriction as is for now will continue to follow at a distance, available if needed 05/08/17 11:16 05/09/17 08:36 05/09/17 08:38 Subjective: hungry this AM no cp sob nausea or vomiting appetite good still with pain, but manageable spirits good Objective: Vital Signs Temp Pulse Resp BP Pulse Ox 36.3 C 104 H 18 128/62 H 97 05/09/17 08:25 05/09/17 08:25 05/09/17 08:25 05/09/17 08:25 05/09/17 08:25 Microbiology 05/04/17 06:30 Blood Culture - Final Blood 05/02/17 17:54 Gram Stain - Final Shoulder - Eswab 05/02/17 17:54 Gram Stain - Final Shoulder - Eswab 05/02/17 17:54 Gram Stain - Final Shoulder - Eswab 05/02/17 17:54 Gram Stain - Final Shoulder - Eswab 05/02/17 17:54 Gram Stain - Final Shoulder - Eswab 05/02/17 18:22 Gram Stain - Final Shoulder - Tissue 05/02/17 17:54 Gram Stain - Final Shoulder - Eswab 05/01/17 16:46 Gram Stain - Final Shoulder - Aspirate Laboratory Results 05/07/17 05:00 05/09/17 05:00 05/08/17 05/09/17 05/10/17 05:59 05:59 05:59 Intake Total 1650 800 20 Output Total 2120 1575 400 Balance -470 -775 -380 PT 20.6 SEC (12.0-15.0) H 05/03/17 14:20 INR 1.76 (0.83-1.16) H 05/03/17 14:20 Physical Exam - Physical Exam General Appearance: alert Respiratory: No rhonchi, No wheezing Cardiac/Chest: regular rate, rhythm, edema (+1) Abdomen: normal bowel sounds, non-tender, soft Extremities: pedal edema Neuro/Psych: alert, normal mood/affect, oriented x 3 ICD10 Worksheet Patient Problems: Problems Problem Status Onset Hyponatremia Acute Osteomyelitis Acute Sepsis Acute Altered mental status Acute Head injury Acute Scalp laceration Acute
[2017-05-09] MEDS: BRIMONIDINE/TIMOLOL 5 ML OPHT.BTL RTEYE SCH ×2 (12:54→21:23)
--- NOTE | 2017-05-09 15:25 | HOSPPROG ---
Hospitalist Progress Note Assessment/Plan: # Strep bacteremia secondary to multiple abscesses / osteo of right shoulder s/ p removal of distal clavicle, acromion - POD #6. repeat BCx 05/04 NGTD- CXR (personally reviewed and interpreted) no infiltrates -cont cefazolin PICC placed -will need minimum 6 weeks abx per ID # TITO - suspected 2/2 ATN in setting of post-op hypotension. FeNa 0.73. 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, 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, s/p 1 u prbc's, H&H 04/18 today -outpt GI evaluation # DM - improved glycemic control off steroids and insulin gtt now - BS 150-251 overnight -cont lantus - cont SSI # Bipolar disorder - stable # Full code # diet - DM diet # DVT PPLX - Change to Heparin from Lovenox due to poor renal function I have discussed the case with CM - working on NH placement for post-op wound care and IV abx Subjective: stable right shoulder pain Objective: Vital Signs Temp Pulse Resp BP Pulse Ox 36.3 C 104 H 18 128/62 H 97 05/09/17 08:25 05/09/17 08:25 05/09/17 08:25 05/09/17 08:25 05/09/17 08:25 Microbiology 05/02/17 17:54 Gram Stain - Final Shoulder - Eswab 05/02/17 17:54 Gram Stain - Final Shoulder - Eswab 05/02/17 17:54 Gram Stain - Final Shoulder - Eswab 05/02/17 17:54 Gram Stain - Final Shoulder - Eswab 05/02/17 17:54 Gram Stain - Final Shoulder - Eswab 05/02/17 18:22 Gram Stain - Final Shoulder - Tissue 05/02/17 17:54 Gram Stain - Final Shoulder - Eswab 05/01/17 16:46 Gram Stain - Final Shoulder - Aspirate 05/04/17 06:30 Blood Culture - Final Blood Laboratory Results 05/07/17 05:00 05/09/17 05:00 05/08/17 05/09/17 05/10/17 05:59 05:59 05:59 Intake Total 1650 800 20 Output Total 2120 1575 400 Balance -470 -775 -380 PT 20.6 SEC (12.0-15.0) H 05/03/17 14:20 INR 1.76 (0.83-1.16) H 05/03/17 14:20 - Physical Exam Constitutional: chronically ill appearing Eyes: anicteric sclera Ears, Nose, Mouth, Throat: moist mucous membranes Cardiovascular: regular rate and rhythym Respiratory: no respiratory distress Gastrointestinal: normoactive bowel sounds, soft, non-tender abdomen Genitourinary: no bladder fullness, No prieto in urethra Skin: normal color Musculoskeletal: No asymmetric calves Neurologic: AAOx3, other (blind) Psychiatric: interacting appropriately Lymph, Heme, Immunologic: no cervical LAD ICD10 Worksheet Patient Problems: Problems Problem Status Onset Hyponatremia Acute Osteomyelitis Acute Sepsis Acute Altered mental status Acute Head injury Acute Scalp laceration Acute
--- NOTE | 2017-05-09 15:51 | PCMIDPN ---
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 Covered currently on cefazolin. Released a 6 week course of treatment following surgery. Plan: 1) Continue IV cefazolin at present dose. 2) Follow surgical recovery. 3) Discharge once stable to SNF to complete therapy. Subjective: Patient is resting in his hospital bed. He has no new complaint. He continues to complain about right shoulder soreness and the extent of surgery. Objective: Cefazolin # 8/ Vital Signs Temp Pulse Resp BP Pulse Ox 36.5 C 96 18 115/71 96 05/09/17 15:40 05/09/17 15:40 05/09/17 15:40 05/09/17 15:40 05/09/17 15:40 Microbiology 05/02/17 17:54 Gram Stain - Final Shoulder - Eswab 05/02/17 17:54 Gram Stain - Final Shoulder - Eswab 05/02/17 17:54 Gram Stain - Final Shoulder - Eswab 05/02/17 17:54 Gram Stain - Final Shoulder - Eswab 05/02/17 17:54 Gram Stain - Final Shoulder - Eswab 05/02/17 18:22 Gram Stain - Final Shoulder - Tissue 05/02/17 17:54 Gram Stain - Final Shoulder - Eswab 05/01/17 16:46 Gram Stain - Final Shoulder - Aspirate 05/04/17 06:30 Blood Culture - Final Blood Laboratory Results 05/07/17 05:00 05/09/17 05:00 05/08/17 05/09/17 05/10/17 05:59 05:59 05:59 Intake Total 1650 800 670 Output Total 2120 1575 500 Balance -470 -775 170 - Physical Exam General Appearance: WD/WN, alert, no apparent distress, non-toxic Respiratory: lungs clear, normal breath sounds, No respiratory distress Cardiac/Chest: regular rate, rhythm, No tachycardia Skin: normal color, warm/dry, No rash Neuro/Psych: alert, normal mood/affect, oriented x 3 ICD10 Worksheet Patient Problems: Problems Problem Status Onset Hyponatremia Acute Osteomyelitis Acute Sepsis Acute Altered mental status Acute Head injury Acute Scalp laceration Acute
--- NOTE | 2017-05-09 17:21 | ASMTCMCOM ---
CM Note CM Note Notes: ULTC submitted for [facility] so they can process paperwork required for pt to transfer to LTC bed at [facility] instead of [facility]. Jennifer at [facility] aware of pt's decision. Leonor from [facility] reviewed pt this PM. Leonor is waiting to hear back from Dir if they can take pt. C/M to follow. Date Signed: 05/09/2017 05:21 PM Electronically Signed By:Ruth Lynne LCSW
--- NOTE | 2017-05-09 17:45 | SOAPPROG ---
SOAP Progress Note Assessment/Plan: SOAP Progress Note Assessment/Plan: Assessment: HPI: 62 year old male now POD#7 from a right shoulder multi-lobulated abscess incision and drainage with right lateral clavicle, right acromion, and right lateral scapular spine resection due to concomitant osteomyelitis on 05/02/17 PE: RUE: Incision nicely approximated with no drainage +D, B, T, ECRL, ECRB, EPL, FPL, FDS, FDP +A / M / R / U SILT 2+ radial and ulnar pulses Assessment and Plan: 62 year old male now POD#7 from a right shoulder multi-lobulated abscess incision and drainage with right lateral clavicle, right acromion, and right lateral scapular spine resection due to concomitant osteomyelitis on 05/02/17 -Dressing removed -New occlusive dressing applied to be left in place. Reinforce if needed but do not remove dressing -Keep right shoulder clean and dry -Continue on IV antibiotics per ID recommendations -Encourage gentle right shoulder, elbow, wrist, finger, and thumb ROM -Partial WB on RUE -Patient will likely need to be discharged to a chcf due to medical co-morbidities as well as need for assistance in transferring -FU as an outpatient in 1 week for a repeat wound check 05/09/17 17:44 Objective: Vital Signs Temp Pulse Resp BP Pulse Ox 36.5 C 96 18 115/71 96 05/09/17 15:40 05/09/17 15:40 05/09/17 15:40 05/09/17 15:40 05/09/17 15:40 Microbiology 05/02/17 17:54 Gram Stain - Final Shoulder - Eswab 05/02/17 17:54 Gram Stain - Final Shoulder - Eswab 05/02/17 17:54 Gram Stain - Final Shoulder - Eswab 05/02/17 17:54 Gram Stain - Final Shoulder - Eswab 05/02/17 17:54 Gram Stain - Final Shoulder - Eswab 05/02/17 18:22 Gram Stain - Final Shoulder - Tissue 05/02/17 17:54 Gram Stain - Final Shoulder - Eswab 05/01/17 16:46 Gram Stain - Final Shoulder - Aspirate 05/04/17 06:30 Blood Culture - Final Blood Laboratory Results 05/07/17 05:00 05/09/17 05:00 05/08/17 05/09/17 05/10/17 05:59 05:59 05:59 Intake Total 1650 800 720 Output Total 7049 3577 2510 Balance -470 -775 -730 PT 20.6 SEC (12.0-15.0) H 05/03/17 14:20 INR 1.76 (0.83-1.16) H 05/03/17 14:20 ICD10 Worksheet Patient Problems: Problems Problem Status Onset Hyponatremia Acute Osteomyelitis Acute Sepsis Acute Altered mental status Acute Head injury Acute Scalp laceration Acute
[2017-05-09] MEDS: PANTOPRAZOLE SODIUM 40 MG TAB PO SCH (21:12)
[2017-05-09] MEDS: QUEtiapine FUMARATE 100 MG TAB PO SCH (21:14)
[2017-05-09] MEDS: LATANOPROST 0.005% 2.5 ML OPHT DROPS RTEYE SCH (21:23)
[2017-05-10] MEDS: oxyCODONE IR 5 MG TAB PO PRN ×4 (01:49→17:11)
[2017-05-10] MEDS: HEPARIN 5,000 UNIT/0.5 ML SYR SC SCH ×2 (05:02→14:18)
[2017-05-10] MEDS: ceFAZolin 2 GM in D5W 100 ML IV SCH ×3 (05:04→22:01)
[2017-05-10 05:26] LABS: ALBUMIN 2.1 g/dL (3.5-5.0); CALCIUM 7.9 mg/dL (8.5-10.4); CARBON DIOXIDE 25 mEq/l (22-31); CHLORIDE 98 mEq/L (97-110); CREATININE 0.8 mg/dL (0.7-1.3); GLOMERULAR FILTRATION RATE > 60; GLUCOSE 135 mg/dL (70-100); POTASSIUM 4.5 mEq/L (3.5-5.2)
[2017-05-10] MEDS: INSULIN LISPRO 100 UNIT/ML SC SCH ×3 (07:35→17:18)
[2017-05-10 08:21] LABS: ANION GAP 9 mEq/L (8-16); CALCIUM 7.9 mg/dL (8.5-10.4); CARBON DIOXIDE 24 mEq/l (22-31); CHLORIDE 97 mEq/L (97-110); CREATININE 0.8 mg/dL (0.7-1.3); GLOMERULAR FILTRATION RATE > 60; GLUCOSE 128 mg/dL (70-100); POTASSIUM 4.5 mEq/L (3.5-5.2); SODIUM 130 mEq/L (134-144)
[2017-05-10] MEDS: SODIUM CHLORIDE 1,000 MG TAB PO SCH ×2 (09:09→17:11)
[2017-05-10] MEDS: FUROSEMIDE 40 MG TAB PO SCH ×2 (09:10→15:42)
[2017-05-10] MEDS: GABAPENTIN 300 MG CAP PO SCH ×2 (09:10→15:43)
[2017-05-10] MEDS: BRIMONIDINE/TIMOLOL 5 ML OPHT.BTL RTEYE SCH ×2 (09:16→22:01)
[2017-05-10] MEDS: INSULIN GLARGINE 100 UNITS/ML SYRINGE SC SCH ×2 (09:40→21:59)
--- NOTE | 2017-05-10 15:45 | HOSPPROG ---
Hospitalist Progress Note Assessment/Plan: # Strep bacteremia secondary to multiple abscesses / osteo of right shoulder s/ p removal of distal clavicle, acromion - POD #7. repeat BCx 05/04 NGTD- CXR (personally reviewed and interpreted) no infiltrates -cont cefazolin - PICC placed -will need minimum 6 weeks abx per ID # TITO - suspected 2/2 ATN in setting of post-op hypotension. 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, 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, s/p 1 u prbc's, H&H 04/18 -outpt GI evaluation # DM - improved glycemic control off steroids and insulin gtt now - BS 128-250 overnight -cont lantus -cont SSI # Bipolar disorder - stable # Full code # diet - DM diet # DVT PPLX - switch to Lovenox as renal function improved I have discussed the case with CM - we are still coordinating dc with NH - continue current care Subjective: some nausea this am - heparin shots hurting Objective: Vital Signs Temp Pulse Resp BP Pulse Ox 36.9 C 85 20 142/77 H 98 05/10/17 08:00 05/10/17 08:00 05/10/17 08:00 05/10/17 08:00 05/10/17 08:00 Microbiology 05/02/17 17:54 Gram Stain - Final Shoulder - Eswab 05/02/17 17:54 Gram Stain - Final Shoulder - Eswab 05/02/17 17:54 Gram Stain - Final Shoulder - Eswab 05/02/17 17:54 Gram Stain - Final Shoulder - Eswab 05/02/17 17:54 Gram Stain - Final Shoulder - Eswab 05/02/17 18:22 Gram Stain - Final Shoulder - Tissue 05/02/17 17:54 Gram Stain - Final Shoulder - Eswab 05/01/17 16:46 Gram Stain - Final Shoulder - Aspirate 05/04/17 15:20 Blood Culture - Final Blood Laboratory Results 05/07/17 05:00 05/10/17 07:53 05/09/17 05/10/17 05/11/17 05:59 05:59 05:59 Intake Total 800 870 245 Output Total 1575 2400 1350 Balance -775 -1530 -1105 PT 20.6 SEC (12.0-15.0) H 05/03/17 14:20 INR 1.76 (0.83-1.16) H 05/03/17 14:20 - Physical Exam Constitutional: chronically ill appearing Eyes: anicteric sclera Ears, Nose, Mouth, Throat: moist mucous membranes Cardiovascular: regular rate and rhythym Respiratory: no respiratory distress Gastrointestinal: normoactive bowel sounds, soft, non-tender abdomen Genitourinary: no bladder fullness Skin: warm, normal color Musculoskeletal: No asymmetric calves Neurologic: AAOx3, other (blind) Psychiatric: interacting appropriately Lymph, Heme, Immunologic: no cervical LAD ICD10 Worksheet Patient Problems: Problems Problem Status Onset Hyponatremia Acute Osteomyelitis Acute Sepsis Acute Altered mental status Acute Head injury Acute Scalp laceration Acute
--- NOTE | 2017-05-10 16:45 | ASMTCMCOM ---
CM Note CM Note Notes: Leonor from [facility] stated today that the DON at had declined to take pt because Jennifer at [facility] had indicated to them that pt drinks once a week when he goes out with family and she suspects that pt had been drinking when he hurt his shoulder. Pt states he does not want to return to [facility] and Dr Juan has indicated verbally to to at least Dr Christian that he does not want pt to return to [facility]. Due to the complexity of placement, asked dir Michael of case mgmt to get involved. Jessica has placed to call to Jennifer at [facility] and also sent referrals to other LTC facilities. C/M will continue to follow. Date Signed: 05/10/2017 04:44 PM Electronically Signed By:Ruth Lynne LCSW
[2017-05-10] MEDS: LISINOPRIL 5 MG TAB PO SCH (17:11)
[2017-05-10 19:05] LABS: ANION GAP 10 mEq/L (8-16); SODIUM 133 mEq/L (134-144)
[2017-05-10] MEDS: QUEtiapine FUMARATE 100 MG TAB PO SCH (22:00)
[2017-05-10] MEDS: PANTOPRAZOLE SODIUM 40 MG TAB PO SCH (22:00)
[2017-05-10] MEDS: LATANOPROST 0.005% 2.5 ML OPHT DROPS RTEYE SCH (22:01)
[2017-05-11] MEDS: ceFAZolin 2 GM in D5W 100 ML IV SCH ×3 (05:55→21:18)
[2017-05-11 07:01] LABS: ALBUMIN 2.1 g/dL (3.5-5.0); ANION GAP 6 mEq/L (8-16); CALCIUM 7.4 mg/dL (8.5-10.4); CARBON DIOXIDE 26 mEq/l (22-31); CHLORIDE 100 mEq/L (97-110); CREATININE 0.8 mg/dL (0.7-1.3); GLOMERULAR FILTRATION RATE > 60; GLUCOSE 114 mg/dL (70-100); SODIUM 132 mEq/L (134-144)
--- NOTE | 2017-05-11 09:20 | HOSPPROG ---
Hospitalist Progress Note Assessment/Plan: Begin 908 # Strep bacteremia secondary to multiple abscesses / osteo of right shoulder s/ p removal of distal clavicle, acromion - POD #8. Repeat cultures negative to date. Continuing cefazolin. PICC line in place and planning at least 6 weeks of antibiotics. # TITO - suspected 2/2 ATN in setting of post-op hypotension. now resolved # Hyponatremia - thought multifactorial by nephrology - stable. Continue fluid restriction at 1200ml/24 hour. Salt tabs and lasix. # Septic shock secondary to right shoulder abscess / osteo of distal clavicle - Off pressors- hemodynamically stable. Appears resolved at this time. 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 Repeat CBC with iron studies tomorrow. # DM - improved glycemic control off steroids and insulin gtt now - reasonable control currently. Continue with current lantus and sliding scale. # Bipolar disorder - stable # Bowel/Bladder - no constipation. # DVT prophylaxis - lovenox. # Dispo - anticipate SNF. Previously a resident and [facility] but patient states he may have different SNF at time of discharge. End 927 Subjective: No acute events overnight. Patient state pain in right shoulder controlled with current pain meds but does increase with activity. PT working with patient. Patient states daily bowel movements. Objective: Vital Signs Temp Pulse Resp BP Pulse Ox 36.8 C 93 16 143/71 H 95 05/11/17 07:56 05/11/17 07:56 05/11/17 07:56 05/11/17 07:56 05/11/17 07:56 Microbiology 05/02/17 17:54 Gram Stain - Final Shoulder - Eswab 05/02/17 17:54 Gram Stain - Final Shoulder - Eswab 05/02/17 17:54 Gram Stain - Final Shoulder - Eswab 05/02/17 17:54 Gram Stain - Final Shoulder - Eswab 05/02/17 17:54 Gram Stain - Final Shoulder - Eswab 05/02/17 18:22 Gram Stain - Final Shoulder - Tissue 05/02/17 17:54 Gram Stain - Final Shoulder - Eswab 05/01/17 16:46 Gram Stain - Final Shoulder - Aspirate 05/04/17 15:20 Blood Culture - Final Blood Laboratory Results 05/07/17 05:00 05/11/17 06:10 05/10/17 05/11/17 05/12/17 05:59 05:59 05:59 Intake Total 870 865 250 Output Total 2400 3325 700 Balance -1530 -2460 -450 PT 20.6 SEC (12.0-15.0) H 05/03/17 14:20 INR 1.76 (0.83-1.16) H 05/03/17 14:20 - Physical Exam Constitutional: no apparent distress, appears nourished, not in pain Cardiovascular: regular rate and rhythym, no murmur, rub, or gallop, No edema Respiratory: no respiratory distress, no rales or rhonchi, clear to auscultation Gastrointestinal: normoactive bowel sounds, soft, non-tender abdomen, no palpable masses Genitourinary: No prieto in urethra ICD10 Worksheet Patient Problems: Problems Problem Status Onset Hyponatremia Acute Osteomyelitis Acute Sepsis Acute Altered mental status Acute Head injury Acute Scalp laceration Acute
[2017-05-11] MEDS: BRIMONIDINE/TIMOLOL 5 ML OPHT.BTL RTEYE SCH ×2 (09:28→21:17)
[2017-05-11] MEDS: oxyCODONE IR 5 MG TAB PO PRN ×4 (09:29→22:30)
[2017-05-11] MEDS: INSULIN GLARGINE 100 UNITS/ML SYRINGE SC SCH ×2 (09:30→22:29)
[2017-05-11] MEDS: SODIUM CHLORIDE 1,000 MG TAB PO SCH ×2 (09:30→17:43)
[2017-05-11] MEDS: ENOXAPARIN 40 MG/0.4 ML SYR SC SCH (09:30)
[2017-05-11] MEDS: FUROSEMIDE 40 MG TAB PO SCH ×2 (09:31→14:05)
[2017-05-11] MEDS: LISINOPRIL 5 MG TAB PO SCH (09:32)
[2017-05-11] MEDS: INSULIN LISPRO 100 UNIT/ML SC SCH ×3 (09:34→17:43)
--- NOTE | 2017-05-11 11:42 | SOAPPROG ---
SOAP Progress Note Assessment/Plan: Assessment: TITO resolved Strep shoulder infection, S/P I and D UOP better on furosemide Edema better still with shoulder pain, likely still with ADH secretion keeping Na level on the low side proteinuria, non-nephrotic, likely due to DM-2 Plan: continue ABX continue therapies Looking for outpaient rehab spot will need renal follow up as outpatient will need JULIA-I or ARB for proteinuria/DM-2 once we know his renal function is stable continue diuretics and fluid restriction as is for now will continue to follow at a distance, available if needed 05/08/17 11:16 05/09/17 08:36 05/09/17 08:38 Subjective: feels OK still some pain denies nausea or vomiting appetite good no cp or SOB spirits good Objective: Vital Signs Temp Pulse Resp BP Pulse Ox 36.8 C 93 16 143/71 H 95 05/11/17 07:56 05/11/17 07:56 05/11/17 07:56 05/11/17 09:32 05/11/17 07:56 Microbiology 05/02/17 17:54 Gram Stain - Final Shoulder - Eswab 05/02/17 17:54 Gram Stain - Final Shoulder - Eswab 05/02/17 17:54 Gram Stain - Final Shoulder - Eswab 05/02/17 17:54 Gram Stain - Final Shoulder - Eswab 05/02/17 17:54 Gram Stain - Final Shoulder - Eswab 05/02/17 18:22 Gram Stain - Final Shoulder - Tissue 05/02/17 17:54 Gram Stain - Final Shoulder - Eswab 05/01/17 16:46 Gram Stain - Final Shoulder - Aspirate 05/04/17 15:20 Blood Culture - Final Blood Laboratory Results 05/07/17 05:00 05/11/17 06:10 05/10/17 05/11/17 05/12/17 05:59 05:59 05:59 Intake Total 870 865 250 Output Total 2400 3325 1500 Balance -1530 -2460 -1250 PT 20.6 SEC (12.0-15.0) H 05/03/17 14:20 INR 1.76 (0.83-1.16) H 05/03/17 14:20 Physical Exam - Physical Exam General Appearance: alert Respiratory: No rhonchi, No wheezing Cardiac/Chest: regular rate, rhythm, edema (edema much improved), No friction rub Abdomen: normal bowel sounds, non-tender, soft Extremities: pedal edema (trace) Neuro/Psych: alert, normal mood/affect, oriented x 3 ICD10 Worksheet Patient Problems: Problems Problem Status Onset Hyponatremia Acute Osteomyelitis Acute Sepsis Acute Altered mental status Acute Head injury Acute Scalp laceration Acute
[2017-05-11] MEDS: PANTOPRAZOLE SODIUM 40 MG TAB PO SCH (21:16)
[2017-05-11] MEDS: LATANOPROST 0.005% 2.5 ML OPHT DROPS RTEYE SCH (21:16)
[2017-05-11] MEDS: QUEtiapine FUMARATE 100 MG TAB PO SCH (21:16)
[2017-05-12] MEDS: oxyCODONE IR 5 MG TAB PO PRN ×4 (02:39→22:11)
[2017-05-12] MEDS: ceFAZolin 2 GM in D5W 100 ML IV SCH ×3 (05:47→22:08)
[2017-05-12 06:03] LABS: % IMMATURE GRANULYOCYTES 1.2 % (0.0-1.1); ABSOLUTE IMMATURE GRANULOCYTES 0.04 10^3/uL (0.00-0.10); ADD DIFF? NO; ADD MORPH? NO; ADD SCAN? NO; ATYPICAL LYMPHOCYTE FLAG 0 (0-99); FRAGMENT RBC FLAG 0 (0-99); HEMATOCRIT 25.3 % (40.0-51.0); HEMOGLOBIN 8.5 g/dL (13.7-17.5); LEFT SHIFT FLG 10 (0-99); LIPEMIA HEMOLYSIS FLAG 80 (0-99); MEAN CELL HEMOGLOBIN 28.7 pg (27.9-34.1); MEAN CELL HEMOGLOBIN CONCENTR. 33.6 g/dL (32.4-36.7); MEAN CELL VOLUME 85.5 fL (81.5-99.8); MEAN PLATELET VOLUME 9.5 fL (8.7-11.7); PLATELET CLUMPS FLAG 0 (0-99); PLATELET COUNT 126 10^3/uL (150-400); RED BLOOD CELL COUNT 2.96 10^6/uL (4.40-6.38); RED CELL DISTRIBUTION WIDTH 14.6 % (11.5-15.2)
[2017-05-12 06:19] LABS: ALBUMIN 2.1 g/dL (3.5-5.0); ANION GAP 8 mEq/L (8-16); CALCIUM 7.5 mg/dL (8.5-10.4); CARBON DIOXIDE 29 mEq/l (22-31); CHLORIDE 97 mEq/L (97-110); CREATININE 0.8 mg/dL (0.7-1.3); GLOMERULAR FILTRATION RATE > 60; GLUCOSE 162 mg/dL (70-100); SODIUM 134 mEq/L (134-144)
[2017-05-12 06:28] LABS: % SATURATION 13 % (20-55); TOTAL IRON BINDING CAPACITY 254 ug/dL (260-490)
[2017-05-12] MEDS: ENOXAPARIN 40 MG/0.4 ML SYR SC SCH (08:48)
[2017-05-12] MEDS: SODIUM CHLORIDE 1,000 MG TAB PO SCH ×2 (08:48→18:10)
[2017-05-12] MEDS: INSULIN LISPRO 100 UNIT/ML SC SCH ×3 (08:48→18:09)
[2017-05-12] MEDS: FUROSEMIDE 40 MG TAB PO SCH ×2 (08:49→14:55)
[2017-05-12] MEDS: LISINOPRIL 5 MG TAB PO SCH (08:49)
[2017-05-12] MEDS: BRIMONIDINE/TIMOLOL 5 ML OPHT.BTL RTEYE SCH ×2 (08:49→22:15)
[2017-05-12] MEDS: INSULIN GLARGINE 100 UNITS/ML SYRINGE SC SCH ×2 (08:55→20:59)
--- NOTE | 2017-05-12 10:11 | HOSPPROG ---
Hospitalist Progress Note Assessment/Plan: # Strep bacteremia secondary to multiple abscesses / osteo of right shoulder s/ p removal of distal clavicle, acromion - Repeat blood cultures are negative. PICC line in place and planning at least 6 weeks of Cefazolin. CRP tomorrow. # Hyponatremia - thought multifactorial by nephrology - stable. Continue fluid restriction at 1200ml/24 hour. Salt tabs and lasix. # Anemia - suspect secondary to chronic inflammation. # HTN - elevated readings. Increase lisinopril to 5mg daily. # DM2 - improved glycemic control off steroids and insulin gtt now - reasonable control currently. Continue with current lantus and sliding scale. # Bipolar disorder - stable. Currently on Seroquel. # Bowel/Bladder - no constipation. # DVT prophylaxis - lovenox. # Dispo - anticipate SNF. Previously a resident and [facility] but patient states he may have different SNF at time of discharge. Subjective: No new complaints. Pain stable. BM's daily. Objective: Vital Signs Temp Pulse Resp BP Pulse Ox 36.9 C 90 16 150/78 H 97 05/12/17 07:34 05/12/17 07:34 05/12/17 05:30 05/12/17 08:49 05/12/17 07:34 Laboratory Results 05/12/17 05:40 05/12/17 05:40 05/11/17 05/12/17 05/13/17 05:59 05:59 05:59 Intake Total 865 1740 Output Total 3325 4525 325 Balance -2460 -2785 -325 PT 20.6 SEC (12.0-15.0) H 05/03/17 14:20 INR 1.76 (0.83-1.16) H 05/03/17 14:20 - Physical Exam Constitutional: no apparent distress, appears nourished, not in pain Cardiovascular: regular rate and rhythym, no murmur, rub, or gallop, No edema Respiratory: no respiratory distress, no rales or rhonchi, clear to auscultation Gastrointestinal: normoactive bowel sounds, soft, non-tender abdomen, no palpable masses Genitourinary: No prieto in urethra ICD10 Worksheet Patient Problems: Problems Problem Status Onset Hyponatremia Acute Osteomyelitis Acute Sepsis Acute Altered mental status Acute Head injury Acute Scalp laceration Acute
[2017-05-12] MEDS ORDERED: LISINOPRIL 5 MG TAB PO ONE (10:30)
[2017-05-12] MEDS: ACETAMINOPHEN 325 MG TAB PO PRN (20:58)
[2017-05-12] MEDS: QUEtiapine FUMARATE 100 MG TAB PO SCH (20:59)
[2017-05-12] MEDS: PANTOPRAZOLE SODIUM 40 MG TAB PO SCH (20:59)
[2017-05-12] MEDS: LATANOPROST 0.005% 2.5 ML OPHT DROPS RTEYE SCH (22:16)
[2017-05-13] MEDS: oxyCODONE IR 5 MG TAB PO PRN ×4 (05:24→21:26)
[2017-05-13] MEDS: ceFAZolin 2 GM in D5W 100 ML IV SCH ×3 (05:30→22:49)
[2017-05-13 05:45] LABS: ABSOLUTE IMMATURE GRANULOCYTES 0.03 10^3/uL (0.00-0.10); ADD DIFF? NO; ADD MORPH? NO; ADD SCAN? NO; ATYPICAL LYMPHOCYTE FLAG 10 (0-99); FRAGMENT RBC FLAG 0 (0-99); HEMATOCRIT 26.2 % (40.0-51.0); HEMOGLOBIN 8.8 g/dL (13.7-17.5); LEFT SHIFT FLG 10 (0-99); LIPEMIA HEMOLYSIS FLAG 80 (0-99); MEAN CELL HEMOGLOBIN 28.9 pg (27.9-34.1); MEAN CELL HEMOGLOBIN CONCENTR. 33.6 g/dL (32.4-36.7); MEAN CELL VOLUME 86.2 fL (81.5-99.8); MEAN PLATELET VOLUME 9.6 fL (8.7-11.7); PLATELET CLUMPS FLAG 10 (0-99); PLATELET COUNT 112 10^3/uL (150-400); RED BLOOD CELL COUNT 3.04 10^6/uL (4.40-6.38); RED CELL DISTRIBUTION WIDTH 14.6 % (11.5-15.2)
[2017-05-13 05:57] LABS: ALBUMIN 2.2 g/dL (3.5-5.0); ANION GAP 9 mEq/L (8-16); CALCIUM 7.7 mg/dL (8.5-10.4); CARBON DIOXIDE 31 mEq/l (22-31); CHLORIDE 95 mEq/L (97-110); CREATININE 0.8 mg/dL (0.7-1.3); GLOMERULAR FILTRATION RATE > 60; GLUCOSE 125 mg/dL (70-100); POTASSIUM 4.1 mEq/L (3.5-5.2); SODIUM 135 mEq/L (134-144)
[2017-05-13 06:16] LABS: C-REACTIVE PROTEIN 30.6 mg/L (<10.0)
[2017-05-13] MEDS: INSULIN LISPRO 100 UNIT/ML SC SCH ×3 (07:39→18:19)
[2017-05-13] MEDS: INSULIN GLARGINE 100 UNITS/ML SYRINGE SC SCH ×2 (08:48→22:49)
[2017-05-13] MEDS: ENOXAPARIN 40 MG/0.4 ML SYR SC SCH (08:49)
[2017-05-13] MEDS: FUROSEMIDE 40 MG TAB PO SCH ×2 (08:49→15:12)
[2017-05-13] MEDS: LISINOPRIL 5 MG TAB PO SCH (08:49)
[2017-05-13] MEDS: SODIUM CHLORIDE 1,000 MG TAB PO SCH ×2 (08:49→18:19)
[2017-05-13] MEDS: BRIMONIDINE/TIMOLOL 5 ML OPHT.BTL RTEYE SCH ×2 (10:36→22:42)
--- NOTE | 2017-05-13 14:43 | ASMTCMCOM ---
CM Note CM Note Notes: Discussed case with Director, Jessica Amaral. Per Jennifer Lopez at [facility] will now not accept patient back. Jennifer now on vacation through 05/30. Spoke with Elana at [facility] regarding referral. Elana will be on site on Saturday to meet with patient and will try and get some background info from [facility]. More referrals sent to LTC facilities via [employer], no accepting facility as of yet. Case Management will continue to follow. Date Signed: 05/13/2017 02:42 PM Electronically Signed By:Lissette Carbajal RN
--- NOTE | 2017-05-13 15:26 | HOSPPROG ---
Hospitalist Progress Note Assessment/Plan: # Strep bacteremia secondary to multiple abscesses / osteo of right shoulder s/ p removal of distal clavicle, acromion - Repeat blood cultures are negative. PICC line in place and planning at least 6 weeks of Cefazolin. CRP 30. Continue to trend. # Hyponatremia - thought multifactorial by nephrology - stable. Continue fluid restriction at 1200ml/24 hour. Salt tabs and lasix. It has been stable for past few days. Could consider holding lasix and salt tabs with continued stability. # Anemia - suspect secondary to chronic inflammation. # HTN - elevated readings. Lisinopril to 5mg daily yesterday. # DM2 - improved glycemic control off steroids and insulin gtt now - reasonable control currently. Continue with current lantus and sliding scale. # Bipolar disorder - stable. Currently on Seroquel. # Pancytopenia - this developed over the past couple of days with WBC of 3 and plts in 110-120 range. Continue daily CBC for now to trend. # Bowel/Bladder - no constipation. # DVT prophylaxis - lovenox. # Dispo - Discussed with Nan with case management today. Previously a resident and [facility] previously but looking at alternatives currently. Subjective: No acute events overnight. Right shoulder pain seems reasonablly well controlled. It seems less of a complaint today as compared to days prior. I reviewed with him that we are still looking at placement options. Objective: Vital Signs Temp Pulse Resp BP Pulse Ox 36.7 C 86 16 148/84 H 98 05/13/17 08:45 05/13/17 08:45 05/13/17 08:45 05/13/17 08:49 05/13/17 08:45 Microbiology 05/02/17 17:54 Gram Stain - Final Shoulder - Eswab 05/02/17 17:54 Mycobacterial Smear (JOSE A) - Final Shoulder - Eswab Mycobacterial Culture - Final 05/02/17 17:54 Gram Stain - Final Shoulder - Eswab 05/02/17 17:54 Gram Stain - Final Shoulder - Eswab 05/02/17 17:54 Gram Stain - Final Shoulder - Eswab 05/02/17 17:54 Gram Stain - Final Shoulder - Eswab 05/02/17 18:22 Gram Stain - Final Shoulder - Tissue 05/02/17 17:54 Gram Stain - Final Shoulder - Eswab 05/01/17 16:46 Gram Stain - Final Shoulder - Aspirate Laboratory Results 05/13/17 05:35 05/13/17 05:35 05/12/17 05/13/17 05/14/17 05:59 05:59 05:59 Intake Total 1740 1540 Output Total 4573 1700 820 Balance -2785 -160 -820 PT 20.6 SEC (12.0-15.0) H 05/03/17 14:20 INR 1.76 (0.83-1.16) H 05/03/17 14:20 - Physical Exam Constitutional: no apparent distress, appears nourished, not in pain Cardiovascular: regular rate and rhythym, no murmur, rub, or gallop Respiratory: no respiratory distress, no rales or rhonchi, clear to auscultation Gastrointestinal: normoactive bowel sounds, soft, non-tender abdomen, no palpable masses Genitourinary: No prieto in urethra Skin: other (skin around left IJ sight looks clean without erythema.) ICD10 Worksheet Patient Problems: Problems Problem Status Onset Hyponatremia Acute Osteomyelitis Acute Sepsis Acute Altered mental status Acute Head injury Acute Scalp laceration Acute
[2017-05-13] MEDS: CHOLECALCIFEROL VIT D3 1,000 UNITS TAB PO SCH (16:12)
--- NOTE | 2017-05-13 17:50 | SOAPPROG ---
SOAP Progress Note Assessment/Plan: SOAP Progress Note Assessment/Plan: Assessment: HPI: 62 year old male now POD#11 from a right shoulder multi-lobulated abscess incision and drainage with right lateral clavicle, right acromion, and right lateral scapular spine resection due to concomitant osteomyelitis on 05/02/17 PE: RUE: Incision nicely approximated with no drainage +D, B, T, ECRL, ECRB, EPL, FPL, FDS, FDP +A / M / R / U SILT 2+ radial and ulnar pulses Assessment and Plan: 62 year old male now POD#11 from a right shoulder multi-lobulated abscess incision and drainage with right lateral clavicle, right acromion, and right lateral scapular spine resection due to concomitant osteomyelitis on 05/02/17 -Dressing removed -New occlusive dressing applied to be left in place. Reinforce if needed but do not remove dressing -Keep right shoulder clean and dry -Continue on IV antibiotics per ID recommendations -Encourage gentle right shoulder, elbow, wrist, finger, and thumb ROM -Partial WB on RUE -Patient will likely need to be discharged to a long-term due to medical co-morbidities as well as need for assistance in transferring -Waiting on placement in long-term facility. FU as an outpatient in 1 week for a repeat wound check 05/13/17 17:49 Objective: Vital Signs Temp Pulse Resp BP Pulse Ox 37.0 C 86 20 129/71 H 95 05/13/17 16:15 05/13/17 16:15 05/13/17 16:15 05/13/17 16:15 05/13/17 16:15 Microbiology 05/02/17 17:54 Gram Stain - Final Shoulder - Eswab 05/02/17 17:54 Mycobacterial Smear (JOSE A) - Final Shoulder - Eswab Mycobacterial Culture - Final 05/02/17 17:54 Gram Stain - Final Shoulder - Eswab 05/02/17 17:54 Gram Stain - Final Shoulder - Eswab 05/02/17 17:54 Gram Stain - Final Shoulder - Eswab 05/02/17 17:54 Gram Stain - Final Shoulder - Eswab 05/02/17 18:22 Gram Stain - Final Shoulder - Tissue 05/02/17 17:54 Gram Stain - Final Shoulder - Eswab 05/01/17 16:46 Gram Stain - Final Shoulder - Aspirate Laboratory Results 05/13/17 05:35 05/13/17 05:35 05/12/17 05/13/17 05/14/17 05:59 05:59 05:59 Intake Total 1741 1540 Output Total 3886 170 1240 Balance -2785 -160 -1240 PT 20.6 SEC (12.0-15.0) H 05/03/17 14:20 INR 1.76 (0.83-1.16) H 05/03/17 14:20 ICD10 Worksheet Patient Problems: Problems Problem Status Onset Hyponatremia Acute Osteomyelitis Acute Sepsis Acute Altered mental status Acute Head injury Acute Scalp laceration Acute
[2017-05-13] MEDS: PANTOPRAZOLE SODIUM 40 MG TAB PO SCH (21:26)
[2017-05-13] MEDS: QUEtiapine FUMARATE 100 MG TAB PO SCH (21:28)
[2017-05-13] MEDS: LATANOPROST 0.005% 2.5 ML OPHT DROPS RTEYE SCH (22:41)
[2017-05-14] MEDS: oxyCODONE IR 5 MG TAB PO PRN ×4 (05:25→22:29)
[2017-05-14] MEDS: ceFAZolin 2 GM in D5W 100 ML IV SCH ×3 (05:27→21:55)
[2017-05-14 05:54] LABS: % IMMATURE GRANULYOCYTES 0.7 % (0.0-1.1); ABSOLUTE IMMATURE GRANULOCYTES 0.03 10^3/uL (0.00-0.10); ADD DIFF? NO; ADD MORPH? NO; ADD SCAN? NO; ATYPICAL LYMPHOCYTE FLAG 0 (0-99); FRAGMENT RBC FLAG 0 (0-99); HEMATOCRIT 26.5 % (40.0-51.0); LEFT SHIFT FLG 0 (0-99); LIPEMIA HEMOLYSIS FLAG 90 (0-99); MEAN CELL HEMOGLOBIN 29.2 pg (27.9-34.1); MEAN PLATELET VOLUME 9.9 fL (8.7-11.7); PLATELET CLUMPS FLAG 0 (0-99); PLATELET COUNT 114 10^3/uL (150-400); RED BLOOD CELL COUNT 3.08 10^6/uL (4.40-6.38); RED CELL DISTRIBUTION WIDTH 14.5 % (11.5-15.2)
[2017-05-14 06:05] LABS: ANION GAP 10 mEq/L (8-16); CALCIUM 7.9 mg/dL (8.5-10.4); CARBON DIOXIDE 27 mEq/l (22-31); CHLORIDE 95 mEq/L (97-110); CREATININE 0.7 mg/dL (0.7-1.3); GLOMERULAR FILTRATION RATE > 60; GLUCOSE 83 mg/dL (70-100); POTASSIUM 3.9 mEq/L (3.5-5.2); SODIUM 132 mEq/L (134-144)
[2017-05-14] MEDS: INSULIN LISPRO 100 UNIT/ML SC SCH ×3 (09:21→17:45)
[2017-05-14] MEDS: SODIUM CHLORIDE 1,000 MG TAB PO SCH (09:22)
[2017-05-14] MEDS: FUROSEMIDE 40 MG TAB PO SCH ×2 (09:22→14:33)
[2017-05-14] MEDS: INSULIN GLARGINE 100 UNITS/ML SYRINGE SC SCH ×2 (09:22→21:12)
[2017-05-14] MEDS: LISINOPRIL 5 MG TAB PO SCH (09:22)
[2017-05-14] MEDS: ENOXAPARIN 40 MG/0.4 ML SYR SC SCH (09:25)
[2017-05-14] MEDS: BRIMONIDINE/TIMOLOL 5 ML OPHT.BTL RTEYE SCH ×2 (09:28→21:55)
--- NOTE | 2017-05-14 15:02 | HOSPPROG ---
Hospitalist Progress Note Assessment/Plan: # R shoulder abscess/osteo s/p I&D, distal clavicle resection, acromion resection - cultures with GBS, p. acnes - will discuss p. acnes with ID - ancef until 06/17 per ID # GBS bacteremia - ancef # hypoNa - seems euvolemic; stop lasix and Na tabs - cont fluid restrict # DM2 - lantus 28 bid + SSI # htn - lisinopril started # bipoar - not manic, on seroquel # pancytopenia - stable/better today # lovenox for ppx Subjective: no acute events; shoulder still sore Objective: Vital Signs Temp Pulse Resp BP Pulse Ox 36.9 C 89 18 138/72 H 98 05/14/17 08:55 05/14/17 08:55 05/14/17 08:55 05/14/17 08:55 05/14/17 08:55 Microbiology 05/02/17 17:54 Gram Stain - Final Shoulder - Eswab Anaerobic Culture - Final Strep Agalactiae Group B Propionibacterium Acnes 05/02/17 17:54 Gram Stain - Final Shoulder - Eswab Anaerobic Culture - Final Strep Agalactiae Group B Propionibacterium Acnes 05/02/17 17:54 Gram Stain - Final Shoulder - Eswab 05/02/17 17:54 Gram Stain - Final Shoulder - Eswab Anaerobic Culture - Final Strep Agalactiae Group B Propionibacterium Acnes 05/02/17 17:54 Gram Stain - Final Shoulder - Eswab Anaerobic Culture - Final Strep Agalactiae Group B Propionibacterium Acnes 05/02/17 18:22 Gram Stain - Final Shoulder - Tissue Anaerobic Culture - Final Strep Agalactiae Group B Propionibacterium Acnes 05/02/17 17:54 Gram Stain - Final Shoulder - Eswab Anaerobic Culture - Final Strep Agalactiae Group B Propionibacterium Acnes 05/01/17 16:46 Gram Stain - Final Shoulder - Aspirate 05/02/17 17:54 Mycobacterial Smear (JOSE A) - Final Shoulder - Eswab Mycobacterial Culture - Final Laboratory Results 05/14/17 05:45 05/14/17 05:45 05/13/17 05/14/17 05/15/17 05:59 05:59 05:59 Intake Total 1540 850 Output Total 1700 2365 1050 Balance -160 -1515 -1050 PT 20.6 SEC (12.0-15.0) H 05/03/17 14:20 INR 1.76 (0.83-1.16) H 05/03/17 14:20 chart reviewed op note reviewed MRI reviewed - Physical Exam Constitutional: no apparent distress, appears nourished Cardiovascular: regular rate and rhythym, no murmur, rub, or gallop Respiratory: no respiratory distress, no rales or rhonchi, clear to auscultation Gastrointestinal: normoactive bowel sounds, soft, non-tender abdomen, no palpable masses ICD10 Worksheet Patient Problems: Problems Problem Status Onset Altered mental status Acute Head injury Acute Scalp laceration Acute Sepsis Acute Hyponatremia Acute Osteomyelitis Acute
--- NOTE | 2017-05-14 15:47 | ASMTCMCOM ---
CM Note CM Note Notes: Spoke with patient and discussed that [facility] had said he could return to them. Patient said he would be willing to go there but after discussing this at length with Dr. Davis and relating concerns that Dr. Juan had about patient returning there, Dr. Davis said he would like us to pursue [facility] for LTC in [place]. Patient said he would like to go there but not to [place]. Patient says his family lives close to the [facility] and feels they would be good support for him there. Dr. Davis wondered about SNF placement but abhay is on Medicaid so that is probably not an option. Dr. Juan explained to Dr. Davis that based on the condition patient was in when he went to surgery he would not want him to return to [facility]. This information was the initialtion by this C/M to make referral to [facility] last week following a discussion that Dr. Christian had with Dr. Juan. Referral sent to the [facility] and Clive is planning to come assess patient on 05/15/17/ Case managment will continue to follow. Date Signed: 05/14/2017 03:47 PM Electronically Signed By:JANNY Wilkerson
[2017-05-14] MEDS: QUEtiapine FUMARATE 100 MG TAB PO SCH ×2 (21:12→21:23)
[2017-05-14] MEDS: PANTOPRAZOLE SODIUM 40 MG TAB PO SCH (21:12)
[2017-05-14] MEDS: ACETAMINOPHEN 325 MG TAB PO PRN (21:14)
[2017-05-14] MEDS: LATANOPROST 0.005% 2.5 ML OPHT DROPS RTEYE SCH (21:54)
[2017-05-15] MEDS: oxyCODONE IR 5 MG TAB PO PRN ×4 (03:49→22:04)
[2017-05-15] MEDS: ceFAZolin 2 GM in D5W 100 ML IV SCH (05:26)
[2017-05-15 05:53] LABS: % IMMATURE GRANULYOCYTES 0.5 % (0.0-1.1); ABSOLUTE IMMATURE GRANULOCYTES 0.02 10^3/uL (0.00-0.10); ADD DIFF? NO; ADD MORPH? NO; ADD SCAN? NO; ATYPICAL LYMPHOCYTE FLAG 10 (0-99); FRAGMENT RBC FLAG 0 (0-99); HEMATOCRIT 27.7 % (40.0-51.0); HEMOGLOBIN 9.3 g/dL (13.7-17.5); LEFT SHIFT FLG 0 (0-99); LIPEMIA HEMOLYSIS FLAG 80 (0-99); MEAN CELL HEMOGLOBIN 29.2 pg (27.9-34.1); MEAN CELL HEMOGLOBIN CONCENTR. 33.6 g/dL (32.4-36.7); MEAN CELL VOLUME 87.1 fL (81.5-99.8); MEAN PLATELET VOLUME 9.9 fL (8.7-11.7); PLATELET CLUMPS FLAG 0 (0-99); PLATELET COUNT 112 10^3/uL (150-400); RED BLOOD CELL COUNT 3.18 10^6/uL (4.40-6.38); RED CELL DISTRIBUTION WIDTH 14.6 % (11.5-15.2)
[2017-05-15 05:55] LABS: ANION GAP 10 mEq/L (8-16); CARBON DIOXIDE 25 mEq/l (22-31); CHLORIDE 97 mEq/L (97-110); CREATININE 0.7 mg/dL (0.7-1.3); GLOMERULAR FILTRATION RATE > 60; GLUCOSE 124 mg/dL (70-100); POTASSIUM 3.5 mEq/L (3.5-5.2); SODIUM 132 mEq/L (134-144)
--- NOTE | 2017-05-15 09:35 | PCMIDPN ---
Assessment/Plan: # Sepsis - Resolved # GBS bacteremia and Acute osteomyelitis of distal clavicle and massive abscesses of the right shoulder region s/p I&D 05/02. All surgical cx now show p acnes. Fluctuant area posterior part of incision, some worry about persistent abscess but also could consider hematoma. --discussed fluctuant area w Dr. Dunlap, he will eval/he was aware --change to ceftriaxone to capture p acnes isolated in all surgical cultures, re -check LFT before start ceftriaxone # Cirrhosis, DM - predisposition to infection # PCN allergy: rash in childhood, tolerating cephalosporins without difficulty meds cefazolin 2gm IV q8h, # Subjective: patient c/o R shoulder pain still ; no diarrhea Objective: Vital Signs Temp Pulse Resp BP Pulse Ox 36.4 C 88 20 173/80 H 98 05/15/17 08:53 05/15/17 08:53 05/15/17 08:53 05/15/17 08:53 05/15/17 08:53 Microbiology 05/02/17 18:22 Mycobacterial Smear (JOSE A) - Final Shoulder - Tissue 05/02/17 17:54 Gram Stain - Final Shoulder - Eswab Anaerobic Culture - Final Strep Agalactiae Group B Propionibacterium Acnes 05/02/17 17:54 Gram Stain - Final Shoulder - Eswab Anaerobic Culture - Final Strep Agalactiae Group B Propionibacterium Acnes 05/02/17 17:54 Gram Stain - Final Shoulder - Eswab 05/02/17 17:54 Gram Stain - Final Shoulder - Eswab Anaerobic Culture - Final Strep Agalactiae Group B Propionibacterium Acnes 05/02/17 17:54 Gram Stain - Final Shoulder - Eswab Anaerobic Culture - Final Strep Agalactiae Group B Propionibacterium Acnes 05/02/17 18:22 Gram Stain - Final Shoulder - Tissue Anaerobic Culture - Final Strep Agalactiae Group B Propionibacterium Acnes 05/02/17 17:54 Gram Stain - Final Shoulder - Eswab Anaerobic Culture - Final Strep Agalactiae Group B Propionibacterium Acnes 05/01/17 16:46 Gram Stain - Final Shoulder - Aspirate Laboratory Results 05/15/17 05:30 05/15/17 05:30 05/14/17 05/15/17 05/16/17 05:59 05:59 05:59 Intake Total 850 1140 Output Total 2365 2000 Balance -1515 -860 C-Reactive Protein 30.6 mg/L (<10.0) H 05/13/17 05:35 - Physical Exam General Appearance: alert, no apparent distress EENT: pale conjunctiva Respiratory: other (decreased bs bases), No accessory muscle use Neck: supple Cardiac/Chest: regular rate, rhythm Extremities: swelling (R arm, shoulder; long incision from anterior to posterior shoulder, no purulent drainage; posterior area of shoulder over upper scapula fluctant area, mild tenderness) Abdomen: non-tender, soft Skin: No rash Neuro/Psych: alert, normal mood/affect, oriented x 3 - Line/s LUE PICC Lines: No drainage, No erythema ICD10 Worksheet Patient Problems: Problems Problem Status Onset Hyponatremia Acute Osteomyelitis Acute Sepsis Acute Altered mental status Acute Head injury Acute Scalp laceration Acute
[2017-05-15] MEDS: LISINOPRIL 5 MG TAB PO SCH (09:40)
[2017-05-15] MEDS: INSULIN GLARGINE 100 UNITS/ML SYRINGE SC SCH ×2 (09:40→21:56)
[2017-05-15] MEDS: INSULIN LISPRO 100 UNIT/ML SC SCH ×3 (09:46→18:58)
[2017-05-15] MEDS: BRIMONIDINE/TIMOLOL 5 ML OPHT.BTL RTEYE SCH ×2 (09:46→21:57)
--- NOTE | 2017-05-15 09:54 | HOSPPROG ---
Hospitalist Progress Note Assessment/Plan: # R shoulder abscess/osteo s/p I&D, distal clavicle resection, acromion resection - fluctuant area - Dr Dunlap to [facility] today - cultures with GBS, p. acnes - ID will consider rocephin given p. acnes - ancef until 06/17 per ID # GBS bacteremia - ancef # hypoNa - Na stable today - cont fluid restrict # DM2 - lantus 28 bid + SSI # htn - lisinopril started, increase today # bipoar - not manic, on seroquel # pancytopenia - stable/better today # lovenox for ppx Subjective: ongoing R shoulder pain Objective: Vital Signs Temp Pulse Resp BP Pulse Ox 36.4 C 88 20 173/80 H 98 05/15/17 08:53 05/15/17 08:53 05/15/17 08:53 05/15/17 09:40 05/15/17 08:53 Microbiology 05/02/17 18:22 Mycobacterial Smear (JOSE A) - Final Shoulder - Tissue 05/02/17 17:54 Gram Stain - Final Shoulder - Eswab Anaerobic Culture - Final Strep Agalactiae Group B Propionibacterium Acnes 05/02/17 17:54 Gram Stain - Final Shoulder - Eswab Anaerobic Culture - Final Strep Agalactiae Group B Propionibacterium Acnes 05/02/17 17:54 Gram Stain - Final Shoulder - Eswab 05/02/17 17:54 Gram Stain - Final Shoulder - Eswab Anaerobic Culture - Final Strep Agalactiae Group B Propionibacterium Acnes 05/02/17 17:54 Gram Stain - Final Shoulder - Eswab Anaerobic Culture - Final Strep Agalactiae Group B Propionibacterium Acnes 05/02/17 18:22 Gram Stain - Final Shoulder - Tissue Anaerobic Culture - Final Strep Agalactiae Group B Propionibacterium Acnes 05/02/17 17:54 Gram Stain - Final Shoulder - Eswab Anaerobic Culture - Final Strep Agalactiae Group B Propionibacterium Acnes 05/01/17 16:46 Gram Stain - Final Shoulder - Aspirate Laboratory Results 05/15/17 05:30 05/15/17 05:30 05/14/17 05/15/17 05/16/17 05:59 05:59 05:59 Intake Total 850 1140 Output Total 2365 1999 Balance -1515 -860 PT 20.6 SEC (12.0-15.0) H 05/03/17 14:20 INR 1.76 (0.83-1.16) H 05/03/17 14:[address] Joseph - Physical Exam Constitutional: no apparent distress, appears nourished Cardiovascular: regular rate and rhythym, no murmur, rub, or gallop, systolic murmur Respiratory: no respiratory distress, no rales or rhonchi, clear to auscultation Gastrointestinal: normoactive bowel sounds, soft, non-tender abdomen, no palpable masses Musculoskeletal: other (R shoulder with largin incision - there is a place in the posterior that is fluctuant about 3 cm) ICD10 Worksheet Patient Problems: Problems Problem Status Onset Altered mental status Acute Head injury Acute Scalp laceration Acute Sepsis Acute Hyponatremia Acute Osteomyelitis Acute
[2017-05-15] MEDS ORDERED: LISINOPRIL 5 MG TAB PO ONE (10:00)
[2017-05-15] MEDS: ENOXAPARIN 40 MG/0.4 ML SYR SC SCH (14:04)
[2017-05-15] MEDS: cefTRIAXone 2 GM in D5W 50 ML IV SCH (14:06)
[2017-05-15 14:16] LABS: ALBUMIN 2.4 g/dL (3.5-5.0); BILIRUBIN,TOTAL 0.7 mg/dL (0.1-1.4); BILIRUBIN-CONJUGATED 0.4 mg/dL (0.0-0.5); BILIRUBIN-UNCONJUGATED 0.3 mg/dL (0.0-1.1); TOTAL PROTEIN 5.6 g/dL (6.3-8.2)
--- NOTE | 2017-05-15 17:00 | ASMTCMCOM ---
CM Note CM Note Notes: LVM for Clive at [facility]. I was under assumption he would be at hosp today to evaluate pt but did not see him. CM will f/u w/him tomorrow. Date Signed: 05/15/2017 04:59 PM Electronically Signed By:Darling Payne RN
[2017-05-15] MEDS: PANTOPRAZOLE SODIUM 40 MG TAB PO SCH (21:56)
[2017-05-15] MEDS: LATANOPROST 0.005% 2.5 ML OPHT DROPS RTEYE SCH (21:57)
[2017-05-15] MEDS: QUEtiapine FUMARATE 100 MG TAB PO SCH (22:12)
[2017-05-16] MEDS: oxyCODONE IR 5 MG TAB PO PRN ×7 (00:10→23:24)
--- NOTE | 2017-05-16 01:08 | SOAPPROG ---
SOAP Progress Note Assessment/Plan: Assessment: HPI: 62 year old male now POD#14 from a right shoulder multi-lobulated abscess incision and drainage with right lateral clavicle, right acromion, and right lateral scapular spine resection due to concomitant osteomyelitis on 05/02/17 PE: RUE: Incision nicely approximated 6cm by 5cm area of fluctuance along posterior incision line -- gentle pressure applied to this area allowed for decompression of a small seroma (no purulent drainage) +D, B, T, ECRL, ECRB, EPL, FPL, FDS, FDP +A / M / R / U SILT 2+ radial and ulnar pulses Assessment and Plan: 62 year old male now POD#14 from a right shoulder multi-lobulated abscess incision and drainage with right lateral clavicle, right acromion, and right lateral scapular spine resection due to concomitant osteomyelitis on 05/02/17 - - currently with a small seroma along posterior incision which has been completely decompressed with direct pressure and removal of one stitch -New dry sterile dressing applied to be left in place -Keep right shoulder clean and dry -Continue on IV antibiotics per ID recommendations -Encourage gentle right shoulder, elbow, wrist, finger, and thumb ROM -Partial WB on RUE 05/16/17 01:05 Objective: Vital Signs Temp Pulse Resp BP Pulse Ox 36.9 C 90 16 151/71 H 98 05/15/17 19:44 05/15/17 19:44 05/15/17 19:44 05/15/17 19:44 05/15/17 19:44 Microbiology 05/02/17 17:54 Gram Stain - Final Shoulder - Eswab 05/01/17 16:46 Gram Stain - Final Shoulder - Aspirate Anaerobic Culture - Final Strep Agalactiae Group B Laboratory Results 05/15/17 05:30 05/15/17 05:30 05/14/17 05/15/17 05/16/17 05:59 05:59 05:59 Intake Total 850 1140 1025 Output Total 7415 2490 1500 Balance -1515 -860 -475 PT 20.6 SEC (12.0-15.0) H 05/03/17 14:20 INR 1.76 (0.83-1.16) H 05/03/17 14:20 ICD10 Worksheet Patient Problems: Problems Problem Status Onset Hyponatremia Acute Osteomyelitis Acute Sepsis Acute Altered mental status Acute Head injury Acute Scalp laceration Acute
[2017-05-16 05:49] LABS: INR 1.22 (0.83-1.16); PROTIME(PATIENT) 15.4 SEC (12.0-15.0)
[2017-05-16 05:55] LABS: % IMMATURE GRANULYOCYTES 0.6 % (0.0-1.1); ABSOLUTE IMMATURE GRANULOCYTES 0.02 10^3/uL (0.00-0.10); ADD DIFF? NO; ADD MORPH? NO; ADD SCAN? NO; ATYPICAL LYMPHOCYTE FLAG 40 (0-99); FRAGMENT RBC FLAG 0 (0-99); HEMATOCRIT 27.1 % (40.0-51.0); HEMOGLOBIN 8.9 g/dL (13.7-17.5); LEFT SHIFT FLG 0 (0-99); LIPEMIA HEMOLYSIS FLAG 80 (0-99); MEAN CELL HEMOGLOBIN 28.5 pg (27.9-34.1); MEAN CELL HEMOGLOBIN CONCENTR. 32.8 g/dL (32.4-36.7); MEAN CELL VOLUME 86.9 fL (81.5-99.8); MEAN PLATELET VOLUME 10.3 fL (8.7-11.7); PLATELET CLUMPS FLAG 10 (0-99); PLATELET COUNT 116 10^3/uL (150-400); RED BLOOD CELL COUNT 3.12 10^6/uL (4.40-6.38); RED CELL DISTRIBUTION WIDTH 14.6 % (11.5-15.2)
[2017-05-16 06:04] LABS: ANION GAP 9 mEq/L (8-16); CALCIUM 7.9 mg/dL (8.5-10.4); CARBON DIOXIDE 25 mEq/l (22-31); CHLORIDE 99 mEq/L (97-110); CREATININE 0.7 mg/dL (0.7-1.3); GLOMERULAR FILTRATION RATE > 60; GLUCOSE 88 mg/dL (70-100); POTASSIUM 3.7 mEq/L (3.5-5.2); SODIUM 133 mEq/L (134-144)
[2017-05-16] MEDS: INSULIN LISPRO 100 UNIT/ML SC SCH ×3 (09:43→17:36)
[2017-05-16] MEDS: ENOXAPARIN 40 MG/0.4 ML SYR SC SCH (09:43)
[2017-05-16] MEDS: cefTRIAXone 2 GM in D5W 50 ML IV SCH (09:43)
[2017-05-16] MEDS: INSULIN GLARGINE 100 UNITS/ML SYRINGE SC SCH ×3 (09:43→23:40)
[2017-05-16] MEDS: LISINOPRIL 5 MG TAB PO SCH (09:44)
[2017-05-16] MEDS: BRIMONIDINE/TIMOLOL 5 ML OPHT.BTL RTEYE SCH ×2 (09:54→21:24)
--- NOTE | 2017-05-16 12:18 | HOSPPROG ---
Hospitalist Progress Note Assessment/Plan: # R shoulder abscess/osteo s/p I&D, distal clavicle resection, acromion resection - seroma expressed last night by Dr Dunlap - cultures with GBS, p. acnes - abx hanged to rocephin # GBS bacteremia - rocephin # hypoNa - Na actually slightly higher today off lasix and Na tbase - cont fluid restrict # DM2 - lantus 25 bid (slightly decreased today) + SSI # htn - cont lisinopril # bipoar - not manic, on seroquel # pancytopenia - stable # lovenox for ppx Subjective: no complaints; seroma expresed by Dr Dunlap last night Objective: Vital Signs Temp Pulse Resp BP Pulse Ox 36.6 C 88 20 134/73 H 99 05/16/17 10:47 05/16/17 10:47 05/16/17 10:47 05/16/17 10:47 05/16/17 10:47 Microbiology 05/02/17 17:54 Gram Stain - Final Shoulder - Eswab 05/01/17 16:46 Gram Stain - Final Shoulder - Aspirate Anaerobic Culture - Final Strep Agalactiae Group B Laboratory Results 05/16/17 05:15 05/16/17 05:15 05/15/17 05/16/17 05/17/17 05:59 05:59 05:59 Intake Total 1140 1375 Output Total 2000 1700 350 Balance -860 -325 -350 PT 15.4 SEC (12.0-15.0) H 05/16/17 05:15 INR 1.22 (0.83-1.16) H 05/16/17 05:15 - Physical Exam Constitutional: no apparent distress, appears nourished Cardiovascular: regular rate and rhythym, no murmur, rub, or gallop Respiratory: no respiratory distress, no rales or rhonchi, clear to auscultation Gastrointestinal: normoactive bowel sounds, soft, non-tender abdomen, no palpable masses Musculoskeletal: other (R shoulder in gauze) ICD10 Worksheet Patient Problems: Problems Problem Status Onset Altered mental status Acute Head injury Acute Scalp laceration Acute Sepsis Acute Hyponatremia Acute Osteomyelitis Acute
--- NOTE | 2017-05-16 17:11 | ASMTCMCOM ---
CM Note CM Note Notes: Met with pt this AM to determine his choice for LTC at a nursing facility. Pt has been at [facility] but Dr Juan would like pt to go to another facility and pt had indicated he might not want to return either. Pt stated that his first choice would be the [facility] followed by [facility]. He did not want to go to [facility]. Clive from [facility] came to evaluate and after talking with Clive, pt decided that he prefers to return to [facility] at this time because he wants to continue with his medical care in [place] and also because he is blind, he knows the layout of his current room at [facility]. He did indicate that he may want to transfer to the [facility] in the future. Clive discussed the process with pt. Alerted Carmenza at [facility] who agreed that pt can return there. Dr Davis will work out details for DC in the morning. Pt will likely get his wound care at the wound care clinic. Also alerted Raven with [facility] about the plan. Pt to DC tomorrow. Date Signed: 05/16/2017 05:10 PM Electronically Signed By:Ruth Lynne LCSW
[2017-05-16] MEDS: LATANOPROST 0.005% 2.5 ML OPHT DROPS RTEYE SCH (21:24)
[2017-05-16] MEDS: QUEtiapine FUMARATE 100 MG TAB PO SCH (21:25)
[2017-05-16] MEDS: PANTOPRAZOLE SODIUM 40 MG TAB PO SCH (23:25)
[2017-05-17] MEDS: oxyCODONE IR 5 MG TAB PO PRN ×5 (05:35→22:09)
[2017-05-17 05:46] LABS: ADD DIFF? NO; ADD MORPH? NO; ADD SCAN? NO; ATYPICAL LYMPHOCYTE FLAG 10 (0-99); FRAGMENT RBC FLAG 0 (0-99); HEMATOCRIT 26.4 % (40.0-51.0); LEFT SHIFT FLG 0 (0-99); LIPEMIA HEMOLYSIS FLAG 90 (0-99); MEAN CELL HEMOGLOBIN 29.7 pg (27.9-34.1); MEAN CELL HEMOGLOBIN CONCENTR. 34.1 g/dL (32.4-36.7); MEAN CELL VOLUME 87.1 fL (81.5-99.8); MEAN PLATELET VOLUME 9.5 fL (8.7-11.7); PLATELET CLUMPS FLAG 0 (0-99); PLATELET COUNT 99 10^3/uL (150-400); RED BLOOD CELL COUNT 3.03 10^6/uL (4.40-6.38); RED CELL DISTRIBUTION WIDTH 14.7 % (11.5-15.2)
[2017-05-17 06:10] LABS: ANION GAP 5 mEq/L (8-16); CALCIUM 8.1 mg/dL (8.5-10.4); CARBON DIOXIDE 29 mEq/l (22-31); CHLORIDE 101 mEq/L (97-110); CREATININE 0.7 mg/dL (0.7-1.3); GLOMERULAR FILTRATION RATE > 60; GLUCOSE 96 mg/dL (70-100); POTASSIUM 3.9 mEq/L (3.5-5.2); SODIUM 135 mEq/L (134-144)
[2017-05-17] MEDS: ENOXAPARIN 40 MG/0.4 ML SYR SC SCH (09:23)
[2017-05-17] MEDS: LISINOPRIL 5 MG TAB PO SCH (09:23)
[2017-05-17] MEDS: INSULIN GLARGINE 100 UNITS/ML SYRINGE SC SCH ×2 (09:24→20:53)
[2017-05-17] MEDS: cefTRIAXone 2 GM in D5W 50 ML IV SCH (09:25)
[2017-05-17] MEDS: BRIMONIDINE/TIMOLOL 5 ML OPHT.BTL RTEYE SCH ×2 (09:26→20:54)
[2017-05-17] MEDS: INSULIN LISPRO 100 UNIT/ML SC SCH ×3 (09:40→18:37)
--- NOTE | 2017-05-17 10:51 | HOSPPROG ---
Hospitalist Progress Note Assessment/Plan: # R shoulder abscess/osteo s/p I&D, distal clavicle resection, acromion resection - given he amount of fluid expressed today, will plan to keep inpatient; call placed to Dr Dunlap - cultures with GBS, p. acnes - abx hanged to rocalexisazzahraa # GBS bacteremia - rocephin # cirrhosis d/t etOH, now sober # hypoNa - Na actually slightly higher today off lasix and Na tabs - cont fluid restrict but relax to 1.5L today # DM2 - lantus 22 bid (have been decreasing slowly) + SSI # htn - cont lisinopril # bipoar - not manic, on seroquel # pancytopenia - stable # lovenox for ppx Subjective: had significant non-purulent fluid expressed; he is worried about his shoulder Objective: Vital Signs Temp Pulse Resp BP Pulse Ox 37.1 C 90 20 146/73 H 98 05/17/17 08:05 05/17/17 08:05 05/17/17 08:05 05/17/17 09:23 05/17/17 08:05 Microbiology 05/02/17 17:54 Gram Stain - Final Shoulder - Eswab Anaerobic Culture - Final Strep Agalactiae Group B Laboratory Results 05/17/17 05:42 05/17/17 05:42 05/16/17 05/17/17 05/18/17 05:59 05:59 05:59 Intake Total 1375 885 Output Total 1700 1325 100 Balance -325 -440 -100 PT 15.4 SEC (12.0-15.0) H 05/16/17 05:15 INR 1.22 (0.83-1.16) H 05/16/17 05:15 - Physical Exam Constitutional: no apparent distress, appears nourished Cardiovascular: regular rate and rhythym, no murmur, rub, or gallop Respiratory: no respiratory distress, no rales or rhonchi, clear to auscultation Gastrointestinal: normoactive bowel sounds, soft, non-tender abdomen, no palpable masses Musculoskeletal: other (R shoulder bandaged in gauze) ICD10 Worksheet Patient Problems: Problems Problem Status Onset Altered mental status Acute Head injury Acute Scalp laceration Acute Sepsis Acute Hyponatremia Acute Osteomyelitis Acute
--- NOTE | 2017-05-17 11:46 | ASMTCMCOM ---
CM Note CM Note Notes: Pt not ready for DC back to [facility] today. Updated Carmenza at B/M and faxed over last few days if MD notes. Dr Dunlap would like pt to see him in clinic 2-3 times/week per Dr Davis. This will be arranged prior to DC. C/M to follow. Date Signed: 05/17/2017 11:45 AM Electronically Signed By:Ruth Lynne LCSW
--- NOTE | 2017-05-17 12:56 | SOAPPROG ---
SOAP Progress Note Assessment/Plan: SOAP Progress Note Assessment: HPI: 62 year old male now POD#15 from a right shoulder multi-lobulated abscess incision and drainage with right lateral clavicle, right acromion, and right lateral scapular spine resection due to concomitant osteomyelitis on 05/02/17 PE: RUE: Incision nicely approximated 5cm by 5cm area of fluctuance along posterior incision line -- gentle pressure applied to this area allowed for decompression of a small seroma (no purulent drainage) +D, B, T, ECRL, ECRB, EPL, FPL, FDS, FDP +A / M / R / U SILT 2+ radial and ulnar pulses Assessment and Plan: 62 year old male now POD#15 from a right shoulder multi-lobulated abscess incision and drainage with right lateral clavicle, right acromion, and right lateral scapular spine resection due to concomitant osteomyelitis on 05/02/17 - - currently with a small seroma along posterior incision which has been completely decompressed with direct pressure -New dry sterile dressing applied to be left in place -Keep right shoulder clean and dry -Continue on IV antibiotics per ID recommendations -Encourage gentle right shoulder, elbow, wrist, finger, and thumb ROM -Partial WB on RUE -Once patient is discharged back to [facility], he must be seen in our office every 2-3 days for wound check 05/17/17 13:05 Objective: Vital Signs Temp Pulse Resp BP Pulse Ox 37.1 C 90 20 146/73 H 98 05/17/17 08:05 05/17/17 08:05 05/17/17 08:05 05/17/17 09:23 05/17/17 08:05 Microbiology 05/02/17 17:54 Gram Stain - Final Shoulder - Eswab Anaerobic Culture - Final Strep Agalactiae Group B Laboratory Results 05/17/17 05:42 05/17/17 05:42 05/16/17 05/17/17 05/18/17 05:59 05:59 05:59 Intake Total 1375 885 Output Total 1700 1325 100 Balance -325 -440 -100 PT 15.4 SEC (12.0-15.0) H 05/16/17 05:15 INR 1.22 (0.83-1.16) H 05/16/17 05:15 ICD10 Worksheet Patient Problems: Problems Problem Status Onset Hyponatremia Acute Osteomyelitis Acute Sepsis Acute Altered mental status Acute Head injury Acute Scalp laceration Acute
[2017-05-17 15:45] VITALS: RESP 18
--- NOTE | 2017-05-17 17:00 | PCMIDPN ---
Assessment/Plan: Assessment/Plan: * Right shoulder abscess and clavicular osteomyelitis with associated group B streptococcal bacteremia with operative culture showing growth of both group B Streptococcus and P. acnes: Continue ceftriaxone given isolation of P acnes. Continues to have significant seroma this drainage which will need to be monitored over time. Plan 6 weeks of antibiotic therapy - do not think in date requires modification as cefazolin likely to have some activity as well. 05/17/17 16:57 Subjective: Patient complains of right shoulder drainage. Patient has diarrhea but only 1-2 episodes each morning. Objective: Vital Signs Temp Pulse Resp BP Pulse Ox 37.1 C 91 18 139/87 H 97 05/17/17 15:44 05/17/17 15:44 05/17/17 15:44 05/17/17 15:44 05/17/17 15:44 Microbiology 05/02/17 17:54 Gram Stain - Final Shoulder - Eswab Anaerobic Culture - Final Strep Agalactiae Group B Laboratory Results 05/17/17 05:42 05/17/17 05:42 05/16/17 05/17/17 05/18/17 05:59 05:59 05:59 Intake Total 1375 885 Output Total 1700 1325 225 Balance -325 -440 -225 C-Reactive Protein 30.6 mg/L (<10.0) H 05/13/17 05:35 Ceftriaxone # 3 (antibiotics # 16/42) - Physical Exam General Appearance: alert, no apparent distress EENT: other (Blindness present) Cardiac/Chest: regular rate, rhythm Extremities: other (Right shoulder with dressing in place with serous appearing drainage on gauze; no surrounding erythema) Abdomen: non-tender, No distended Skin: No embolic lesions - Line/s LUE PICC Lines: No drainage, No erythema ICD10 Worksheet Patient Problems: Problems Problem Status Onset Hyponatremia Acute Osteomyelitis Acute Sepsis Acute Altered mental status Acute Head injury Acute Scalp laceration Acute
--- NOTE | 2017-05-17 18:14 | PDIAF ---
- Diagnosis Diagnosis: Group B strep sepsis/right shoulder abscess/clavicle osteomyelitis Code Status: Full Code - Medication Management Discharge Medications: Medications to Continue on Transfer Brimonidine/Timolol [Combigan (*)] 1 drop RTEYE BID 09/09/16 [Last Taken ] Calcium Carbonate [Tums 500MG (*)] 1,000 mg PO Q12H PRN 09/09/16 [Last Taken Unknown] Cholecalciferol Vit D3 [Vitamin D3 (*)] 5,000 units PO MO 09/09/16 [Last Taken 09/03/16] Latanoprost 0.005% [Xalatan 0.005% (*)] 1 drops RTEYE HS 09/09/16 [Last Taken ] Magnesium Hydroxide [Milk of Magnesia] 30 ml PO DAILY PRN 09/09/16 [Last Taken Unknown] Omeprazole [Prilosec 20 mg] 20 mg PO HS 09/09/16 [Last Taken 09/09/16] Acetaminophen [Tylenol 325mg (*)] 650 mg PO Q6HRS PRN 05/01/17 [Last Taken Unknown] Diclofenac Sodium 1% [Voltaren Gel (*)] 1 maxwell TP QID PRN 05/01/17 [Last Taken Unknown] Gabapentin [Neurontin 300 MG (*)] 300 mg PO TID 05/01/17 [Last Taken Unknown] Insulin Aspart [Novolog Flexpen] 4 unit SQ BID 05/01/17 [Last Taken Unknown] Insulin Detemir [Levemir] 30 unit SQ BID 05/01/17 [Last Taken Unknown] Ondansetron Odt [Zofran Odt 4 mg (*)] 4 mg PO Q6HRS PRN 05/01/17 [Last Taken Unknown] QUEtiapine FUMARATE [Seroquel 100 mg (*)] 100 mg PO DAILY 05/01/17 [Last Taken Unknown] oxyCODONE IR [Oxycodone Ir (*)] 5 mg PO Q4HRS PRN 05/01/17 [Last Taken Unknown] Dredge Master Antibiotics: Ceftriaxone 2 g IV q24 hours Long-Term Antibiotic Stop Date: 06/17/17 Discharge Medications: Refer to the Discharge Home Medication list for PRN reason. PICC Care - Routine: Yes - Labs/Radiology CBC w/diff Date: 05/13/17 (q mondays) CMP Date: 05/13/17 (q mondays) CRP Date: 05/13/17 (q mondays) Call or Fax Lab and Imaging Results to: Dr. Saldana- [phone] - Follow Up Care Current Providers and Referrals: Patient,NotPresent [Unknown] - As per Instructions Reji Saldana MD [Medical Doctor] - 05/15/17 10:30 am (f/u wiht Dr. Saldana ( INfectious Diseases) 05/15/17 at 10:30am. Check in time is at: 10:10am. Thanks. )
[2017-05-17] MEDS: QUEtiapine FUMARATE 100 MG TAB PO SCH (19:58)
[2017-05-17] MEDS: PANTOPRAZOLE SODIUM 40 MG TAB PO SCH (20:53)
[2017-05-17] MEDS: LATANOPROST 0.005% 2.5 ML OPHT DROPS RTEYE SCH (20:54)
[2017-05-18] MEDS: oxyCODONE IR 5 MG TAB PO PRN ×3 (02:26→10:22)
[2017-05-18 04:54] LABS: ANION GAP 10 mEq/L (8-16); CALCIUM 8.3 mg/dL (8.5-10.4); CARBON DIOXIDE 25 mEq/l (22-31); CHLORIDE 100 mEq/L (97-110); CREATININE 0.7 mg/dL (0.7-1.3); GLOMERULAR FILTRATION RATE > 60; GLUCOSE 118 mg/dL (70-100); SODIUM 135 mEq/L (134-144)
[2017-05-18 07:49] VITALS: BP 144/76; PULSE 83; TEMP 97.9; O2SAT 99
[2017-05-18] MEDS: ENOXAPARIN 40 MG/0.4 ML SYR SC SCH (08:52)
[2017-05-18] MEDS: INSULIN GLARGINE 100 UNITS/ML SYRINGE SC SCH (08:53)
[2017-05-18] MEDS: LISINOPRIL 5 MG TAB PO SCH (08:53)
[2017-05-18] MEDS: INSULIN LISPRO 100 UNIT/ML SC SCH ×2 (08:55→12:41)
[2017-05-18] MEDS: BRIMONIDINE/TIMOLOL 5 ML OPHT.BTL RTEYE SCH (08:56)
[2017-05-18] MEDS: cefTRIAXone 2 GM in D5W 50 ML IV SCH (09:05)
--- NOTE | 2017-05-18 11:22 | PDIAF ---
- Diagnosis Diagnosis: Group B strep sepsis/right shoulder abscess/clavicle osteomyelitis Code Status: Full Code - Medication Management Discharge Medications: Medications to Continue on Transfer Brimonidine/Timolol [Combigan (*)] 1 drop RTEYE BID 09/09/16 [Last Taken ] Calcium Carbonate [Tums 500MG (*)] 1,000 mg PO Q12H PRN 09/09/16 [Last Taken Unknown] Cholecalciferol Vit D3 [Vitamin D3 (*)] 5,000 units PO MO 09/09/16 [Last Taken 09/03/16] Latanoprost 0.005% [Xalatan 0.005% (*)] 1 drops RTEYE HS 09/09/16 [Last Taken ] Magnesium Hydroxide [Milk of Magnesia] 30 ml PO DAILY PRN 09/09/16 [Last Taken Unknown] Omeprazole [Prilosec 20 mg] 20 mg PO HS 09/09/16 [Last Taken 09/09/16] Acetaminophen [Tylenol 325mg (*)] 650 mg PO Q6HRS PRN 05/01/17 [Last Taken Unknown] Diclofenac Sodium 1% [Voltaren Gel (*)] 1 maxwell TP QID PRN 05/01/17 [Last Taken Unknown] Gabapentin [Neurontin 300 MG (*)] 300 mg PO TID 05/01/17 [Last Taken Unknown] Insulin Aspart [Novolog Flexpen] 4 unit SQ BID 05/01/17 [Last Taken Unknown] Insulin Detemir [Levemir] 30 unit SQ BID 05/01/17 [Last Taken Unknown] Ondansetron Odt [Zofran Odt 4 mg (*)] 4 mg PO Q6HRS PRN 05/01/17 [Last Taken Unknown] QUEtiapine FUMARATE [Seroquel 100 mg (*)] 100 mg PO DAILY 05/01/17 [Last Taken Unknown] oxyCODONE IR [Oxycodone Ir (*)] 5 mg PO Q4HRS PRN 05/01/17 [Last Taken Unknown] Lisinopril [Zestril 5 mg (*)] 10 mg PO DAILY #30 tab 05/18/17 [Last Taken Unknown] cefTRIAXone [Rocephin] 2 gm IV DAILY #10 vial 05/18/17 [Last Taken Unknown] Chcf Antibiotics: Ceftriaxone 2 g IV q24 hours Side Trimmer Antibiotic Stop Date: 06/17/17 Discharge Medications: Refer to the Discharge Home Medication list for PRN reason. PICC Care - Routine: Yes - Orders Diet Recommendation: no restrictions on diet Wound Care Instructions: MUST BE SEEN IN DR. WHITTEN OFFICE EVERY 2-3 days for wound check - Labs/Radiology CBC w/diff Date: 05/13/17 (q mondays) CMP Date: 05/13/17 (q mondays) CRP Date: 05/13/17 (q mondays) Call or Fax Lab and Imaging Results to: Dr. Saldana- [phone] - Follow Up Care Current Providers and Referrals: Patient,NotPresent [Unknown] - As per Instructions Reji Saldana MD [Medical Doctor] - 05/15/17 10:30 am (f/u wiht Dr. Saldana ( INfectious Diseases) 05/15/17 at 10:30am. Check in time is at: 10:10am. Thanks. ) Schuyler Dunlap MD [Medical Doctor] -
--- NOTE | 2017-05-18 12:48 | ASMTCMCOM ---
CM Note CM Note Notes: Pt ready for DC back to [facility] today. Carmenza at / set up W/C transport with [place] for 1:00. Alerted Carmenza that / will need to set up appts for pt with Dr Dunlap's office for 2-3 times/week. Carmenza will let DON know. Final orders faxed. Date Signed: 05/18/2017 12:47 PM Electronically Signed By:Ruth Lynne LCSW
--- NOTE | 2017-05-18 14:26 | ASDISCHSUM ---
Discharge Information Plan Status:SNF Medically Cleared to Leave: Discharge Date:05/18/2017 01:05 PM D/C Disposition:Rehab Fpc Care ADT D/C Disposition:Care Home Facility Projected Discharge Date:05/18/2017 11:00 AM Transportation at D/C: Discharge Delay Reason: Follow-Up Date:05/18/2017 11:00 AM Discharge Slot: Final Diagnosis: Placement Information Referral Type:*Fpc/SNF Referral ID:[facility]-[id number] Provider Name:[place] Address 1:[address] Phone Number: Address 2: Fax Number: [facility]:[place] Selection Factors: State:[place] Referral Type:*Fpc/SNF Referral ID:[facility]-[id number] Provider Name: Address 1: Phone Number: Address 2: Fax Number: City: Selection Factors: State: Referral Type:*Fpc/SNF Referral ID:[facility]-[id number] Provider Name: Address 1: Phone Number: Address 2: Fax Number: City: Selection Factors: State: Patient Contact Information Contact Name:VANESSA Relationship:Sister Address: Work Phone: City: [facility] Phone: [facility]/Zip Code: Email: Financial Information Financial Class: Primary Plan Desc:MEDICAID HEALTH [facility] Primary Plan Number:[id number] Secondary Plan Desc: Secondary Plan Number: Assessment Information [facility] CM Progress Note CM Note CM Note Notes: Pt was admitted with hyponatremia, sepsis, osteomyelitis in shoulder. He fell at [facility] 2 weeks ago and hit his shoulder. He has Bipolar d/o and is blind and lives in their LTC section. He is s/p shoulder debridement and on IV Ancef. Anticipate pt will return to LTC when medically cleared to d/c. Rikki Hassan at [phone] to discuss possible etoh abuse by pt at . He was here in 09/07 after a fall. He was intoxicated and in withdrawal at that time. Date Signed: 05/03/2017 03:37 PM Electronically Signed By:Torrie Gamboa, IRONING WORKER [facility] CM Progress Note CM Note CM Note Notes: Dr. Juan, pts surgeon asked of Dr. Christian that patient not return to [facility]. Spoke with Leonor at [facility] who said they are willing to assess patient to see if he is appropriate for them. indiciated that SNF level would be appropriate initially wiith a transfer then to LT. Referral sent to [facility]. Case management will continue to follow. Date Signed: 05/07/2017 04:08 PM Electronically Signed By:Nan Kunz IRONING WORKER [facility] CM Progress Note CM Note CM Note Notes: Spoke with Dr Vásquez this AM about Dr Juan requesting that pt not return to [facility]. Spoke with pt who confirmed that he does not want to return. Spoke with Jennifer at [facility] about pt and she had not been informed of pt's decision. She wanted her MD to do a doc-to-doc call with Dr Juan so they can understand his concerns and see if there is anything they can do to address them. Told her she needed to set that up. She also is planning on sending pt's ambassador at B/M to discuss the situation with pt. Meanwhile, referral faxed yesterday to [facility] for n LTC bed. A ULTC will need to be submitted as well. If pt does tx to [facility], pt will likely not be ready for DC to give [facility] time to process pt's ULTC. C/M to follow Date Signed: 05/08/2017 03:51 PM Electronically Signed By:Ruth Lynne LCSW [facility] CM Progress Note CM Note CM Note Notes: ULTC submitted for [facility] so they can process paperwork required for pt to transfer to LTC bed at [facility] instead of [facility]. Jennifer at [facility] aware of pt's decision. Leonor from [facility] reviewed pt this PM. Leonor is waiting to hear back from Dir if they can take pt. C/M to follow. Date Signed: 05/09/2017 05:21 PM Electronically Signed By:Ruth Lynne LCSW LACE LACIndy Length of stay for Answers: 7-13 days current admission Acuity / Level of Care Answers: Was the patient admitted to hospital via the emergency department? Yes: Comorbidities - select Answers: Diabetes with end organ all that apply damage Emergency dept visits in Answers: 2 last 6 months Score: 12 Date Signed: 05/10/2017 12:48 PM Electronically Signed By:Jessica Amaral RN [facility] [place] Progress Note CM Note CM Note Notes: Leonor from [facility] stated today that the DON at had declined to take pt because Jennifer at [facility] had indicated to them that pt drinks once a week when he goes out with family and she suspects that pt had been drinking when he hurt his shoulder. Pt states he does not want to return to B/ and Dr Juan has indicated verbally to to at least Dr Christian that he does not want pt to return to B/. Due to the complexity of placement, asked dir Michael of case mgmt to get involved. Jessica has placed to call to Jennifer at [facility] and also sent referrals to other LTC facilities. C/M will continue to follow. Date Signed: 05/10/2017 04:44 PM Electronically Signed By:Ruth Lynne LCSW [facility] CM Progress Note CM Note CM Note Notes: Discussed case with Director, Jessica Amraal. Per Jessica, Jennifer at [facility] will now not accept patient back. Jennifer now on vacation through 05/30. Spoke with Elana at [facility] regarding referral. Elana will be on site on Saturday to meet with patient and will try and get some background info from [facility]. More referrals sent to LTC facilities via [employer], no accepting facility as of yet. Case Management will continue to follow. Date Signed: 05/13/2017 02:42 PM Electronically Signed By:Lissette Carbajal RN [facility] CM Progress Note CM Note CM Note Notes: Spoke with patient and discussed that [facility] had said he could return to them. Patient said he would be willing to go there but after discussing this at length with Dr. Davis and relating concerns that Dr. Juan had about patient returning there, Dr. Davis said he would like us to pursue [facility] for LTC in [place]. Patient said he would like to go there but not to [facility]. Patient says his family lives close to the [facility] and feels they would be good support for him there. Dr. Davis wondered about SNF placement but abhay is on Medicaid so that is probably not an option. Dr. Juan explained to Dr. Davis that based on the condition patient was in when he went to surgery he would not want him to return to [facility]. This information was the initialtion by this C/M to make referral to [facility] last week following a discussion that Dr. Christian had with Dr. Juan. Referral sent to the [facility] and Clive is planning to come assess patient on 05/15/17/ Case managment will continue to follow. Date Signed: 05/14/2017 03:47 PM Electronically Signed By:JANNY Wilkerson [facility] CM Progress Note CM Note CM Note Notes: LVM for Clive at [facility]. I was under assumption he would be at [facility] today to evaluate pt but did not see him. CM will f/u w/him tomorrow. Date Signed: 05/15/2017 04:59 PM Electronically Signed By:Darling Payne RN [facility] CM Progress Note CM Note CM Note Notes: Met with pt this AM to determine his choice for LTC at a nursing facility. Pt has been at [facility] but Dr Juan would like pt to go to another facility and pt had indicated he might not want to return either. Pt stated that his first choice would be the [facility] followed by [facility]. He did not want to go to [place]. Clive from [facility] came to evaluate and after talking with Clive, pt decided that he prefers to return to [facility] at this time because he wants to continue with his medical care in [place] and also because he is blind, he knows the layout of his current room at [facility]. He did indicate that he may want to transfer to the [facility] in the future. Clive discussed the process with pt. Alerted Carmenza at [facility] who agreed that pt can return there. Dr Davis will work out details for DC in the morning. Pt will likely get his wound care at the wound care clinic. Also alerted Raven with [facility] about the plan. Pt to DC tomorrow. Date Signed: 05/16/2017 05:10 PM Electronically Signed By:Rtuh Lynne LCSW [facility] CM Progress Note CM Note CM Note Notes: Pt not ready for DC back to [facility] today. Updated Carmenza at B/M and faxed over last few days if notes. Dr Dunlap would like pt to see him in clinic 2-3 times/week per Dr Davis. This will be arranged prior to DC. C/M to follow. Date Signed: 05/17/2017 11:45 AM Electronically Signed By:Ruth Lynne LCSW [facility] CM Progress Note CM Note CM Note Notes: Pt ready for DC back to [facility] today. Carmenza at [facility] set up W/C transport with [place] for 1:00. Alerted Carmenza that [facility] will need to set up appts for pt with Dr Dunlap's office for 2-3 times/week. Carmenza will let DON know. Final orders faxed. Date Signed: 05/18/2017 12:47 PM Electronically Signed By:Ruth Lynne LCSW Intervention Information Intervention Type:*Incorrect Registration Date of Service:05/01/2017 04:05 PM Patient Type:Inpatient Staff Member:TODD Quiroz Susan Hours: Discipline: Severity: Comment:
--- NOTE | 2017-05-18 15:42 | GDS ---
[f rep st] DISCHARGE SUMMARY DISCHARGE DIAGNOSES: 1. Right shoulder abscess and osteomyelitis, status post incision and drainage with distal clavicle resection and acromion resection. 2. Group B strep sepsis. 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 4. Hyponatremia, resolved. 5. Diabetes, type 2. 6. Hypertension. 7. Bipolar. HISTORY: The patient is a 62-year-old male who presented with a right shoulder abscess and osteomyel itis. He underwent incision and drainage with a distal clavicle resection and acromion resection. C ultures are growing a group B strep and Propionibacterium acnes. He is seen here with Infectious Dis ease. He will continue on IV antibiotics (IV ceftriaxone 2 g IV q.24) until June 17, 2017. Dr. Dunlap would like to see him in his office for wound checks 2-3 times a week. He is transferring hospital for special care to [facility] for further management at this time. He did struggle with hyponatremia earlier this hospitalization, and that has now normalized. Salt ta bs were discontinued, and his fluid restriction was loosened. Routine laboratory studies will contin ue to be followed closely at [facility]. DISCHARGE MEDICATIONS: Please see computer record for full detailed list. 1. New medication:. a. Ceftriaxone 2 g IV daily until June 17. b. Lisinopril 5 mg p.o. daily. ADDITIONAL DISCHARGE INSTRUCTIONS: 1. Patient must be seen in Dr. Dunlap's office every 2-3 days for wound check. 2. Routine laboratory studies while on IV antibiotics with results faxed to Dr. Saldana. TIME SPENT: Greater than 30 minutes' time was spent arranging this discharge. Patient seen and exam ined by me on the day of discharge. /[id number]/MODL
== END 2017-05-18 13:05 | DRG 853 ==
LOC: EDUNIT# → OBSVTOIN 13:58 → F1N 15:10 → F2N 05-02 21:15 → F1N 05-05 15:37
PROVIDERS: ADMIT Internal Medicine; ATTEND Internal Medicine
PROC: 3E03329 Introduction of Other Anti-infective into Peripheral Vein, Percutaneous Approach (ICD-10-PCS; 2017-05-01)
PROC: 0JBD0ZZ Excision of Right Upper Arm Subcutaneous Tissue and Fascia, Open Approach (ICD-10-PCS; principal; 2017-05-02 17:15)
PROC: 0PB90ZZ Excision of Right Clavicle, Open Approach (ICD-10-PCS; principal; 2017-05-02 17:15)
PROC: 0J9D00Z Drainage of Right Upper Arm Subcutaneous Tissue and Fascia with Drainage Device, Open Approach (ICD-10-PCS; principal; 2017-05-02 17:15)
PROC: 0RBG0ZZ Excision of Right Acromioclavicular Joint, Open Approach (ICD-10-PCS; principal; 2017-05-02 17:15)
PROC: 30233N1 Transfusion of Nonautologous Red Blood Cells into Peripheral Vein, Percutaneous Approach (ICD-10-PCS; 2017-05-03)
PROC: 02HV33Z Insertion of Infusion Device into Superior Vena Cava, Percutaneous Approach (ICD-10-PCS; 2017-05-07)
DX: A40.1 Sepsis due to streptococcus, group B (principal); R65.21 Severe sepsis with septic shock; M86.111 Other acute osteomyelitis, right shoulder; L02.413 Cutaneous abscess of right upper limb; N17.0 Acute kidney failure with tubular necrosis; J96.00 Acute respiratory failure, unspecified whether with hypoxia or hypercapnia; I95.81 Postprocedural hypotension; E22.2 Syndrome of inappropriate secretion of antidiuretic hormone; K70.30 Alcoholic cirrhosis of liver without ascites; E87.1 Hypo-osmolality and hyponatremia; E87.2 Acidosis; D62 Acute posthemorrhagic anemia; E11.65 Type 2 diabetes mellitus with hyperglycemia; M75.81 Other shoulder lesions, right shoulder; I10 Essential (primary) hypertension; F31.9 Bipolar disorder, unspecified; H54.7 Unspecified visual loss; F10.21 Alcohol dependence, in remission; G89.29 Other chronic pain; F17.210 Nicotine dependence, cigarettes, uncomplicated; D61.818 Other pancytopenia; L76.34 Postprocedural seroma of skin and subcutaneous tissue following other procedure; R19.7 Diarrhea, unspecified; Z79.4 Long term (current) use of insulin; Z88.0 Allergy status to penicillin
CPT/HCPCS: 82947-QW; 96365; 96374; 97110-GO; 97110-GP; 97116-GP; 97162-GP; 97165-GO; 97530-GO; 97530-GP; 97535-GO; A9585; C1751; J0690; J0696; J1170; J1650; J1815; J2405; J2704; J3010; J3370; J3411; P9016; P9041

== ENCOUNTER 2017-05-19 13:01 | Inpatient (IN) | payer MEDICAID ==
[2017-05-19] MEDS ORDERED: HYDROmorphONE/DILAUDID 1 MG/ML INJ IVP PRN (15:07)
[2017-05-19] MEDS ORDERED: D50W 25 GM/50 ML SYR IVP PRN (15:08)
[2017-05-19] MEDS ORDERED: D10W 250 ML PRN HYPOGLYCEMIA IV (15:30)
[2017-05-19] MEDS ORDERED: cefTRIAXone 2 GM in D5W 50 ML IV SCH ×2 (15:30→18:00)
[2017-05-19] MEDS ORDERED: MAGNESIUM HYDROXIDE 30 ML UDCUP PO PRN (16:20)
[2017-05-19] MEDS ORDERED: CALCIUM CARBONATE 500 MG CHEWABLE TAB PO PRN (16:20)
[2017-05-19] MEDS ORDERED: NON-FORMULARY NEW DRUG (Omeprazole [Prilosec 20 Mg] 20 MG) PO SCH (17:00)
[2017-05-19] MEDS ORDERED: INSULIN DETEMIR 22 UNIT SQ SCH (17:00)
--- NOTE | 2017-05-19 17:01 | SOAPPROG ---
DANDRE Progress Note Assessment/Plan: Assessment: HPI: 62 year old male now POD#17 from a right shoulder multi-lobulated abscess incision and drainage with right lateral clavicle, right acromion, and right lateral scapular spine resection due to concomitant osteomyelitis on 05/02/17 PE: RUE: Incision nicely approximated 5cm by 5cm area of fluctuance along posterior incision line -- gentle pressure applied to this area allowed for decompression of a small seroma (no purulent drainage) +D, B, T, ECRL, ECRB, EPL, FPL, FDS, FDP +A / M / R / U SILT 2+ radial and ulnar pulses Assessment and Plan: 62 year old male now POD#17 from a right shoulder multi-lobulated abscess incision and drainage with right lateral clavicle, right acromion, and right lateral scapular spine resection due to concomitant osteomyelitis on 05/02/17 - - currently with a small seroma along posterior incision which has been completely decompressed with direct pressure -New dry sterile dressing applied to be left in place. Do not remove dressing. Reinforce if needed -Keep right shoulder clean and dry -Continue on IV antibiotics per ID recommendations -Encourage gentle right shoulder, elbow, wrist, finger, and thumb ROM -Partial WB on RUE -We will plan on patient remaining inpatient. Dressing will be changed and wound will be evaluated by Alysha Bell PA-C or Dr. Dunlap every 2-3 days 05/19/17 16:59 Objective: Vital Signs Temp Pulse Resp BP Pulse Ox 36.8 C 87 16 123/74 H 100 05/19/17 15:04 05/19/17 15:04 05/19/17 15:04 05/19/17 15:04 05/19/17 15:04 ICD10 Worksheet Patient Problems: Problems Problem Status Onset Altered mental status Acute Head injury Acute Hyponatremia Acute Osteomyelitis Acute Scalp laceration Acute Sepsis Acute
--- NOTE | 2017-05-19 17:02 | GHP ---
[f rep st] HISTORY AND PHYSICAL DATE OF ADMISSION: 05/19/2017 CHIEF COMPLAINT: Right shoulder drainage. HISTORY: The patient is a 62-year-old male who is blind, [facility]. A few weeks ago los t his balance, striking his shoulder on the wall. The shoulder progressively worsened, becoming more swollen and painful, eventually declaring itself a septic joint with a multiloculated abscess. He w as admitted to [facility], and was in septic shock in the ICU requiring pressors. Bl ood cultures grew a group B strep, and wound cultures from the shoulder grew group B strep, as well a s Propionibacterium acnes. He went to surgery with Dr. Dunlap for incision and drainage, as well as resection of the distal clavicle and acromion on May 03, 2017. He was discharged to [facility] yesterday, but is having extremely high discharge from the shoulder, and is felt to need ongoing in patient management. The patient complains of severe ongoing pain, 6/10, persisting in that shoulder. He is otherwise without acute complaint. PAST MEDICAL HISTORY: 1. Alcohol cirrhosis, sober for 7 years. 2. Diabetes type 2. 3. Hypertension. 4. Bipolar. 5. Blindness. MEDICATIONS: Please see computer record for full detailed list. ALLERGIES: Penicillin. SOCIAL HISTORY: No alcohol for 7 years. He is a resident at [facility]. REVIEW OF SYSTEMS: Complete review of systems obtained. Review of systems negative regarding consti tutional, HEENT, GI, pulmonary, cardiovascular, , hematology, skin, musculoskeletal, endocrine, psy ch, except for positives and negatives as in HPI. FAMILY HISTORY: Reviewed, noncontributory to presenting complaint. PHYSICAL EXAMINATION: GENERAL: Well-developed, well-nourished male, in no distress. VITAL SIGNS: Temperature is 36.8, pulse of 90, blood pressure 123/74, saturating 100% on room air. HEENT: Normal conjunctivae. He is blind, wearing dark glasses. ENT normal ears and nose. Hearing intact. Normal teeth. Oropharynx moist. NECK: Trachea midline. No thyromegaly. CHEST: Normal e ffort. LUNGS: Clear to auscultation bilaterally. CARDIOVASCULAR: Regular rhythm. No murmur. No lower extremity edema. ABDOMEN: Soft, nontender. No hepatosplenomegaly. SKIN: Warm, dry, intact without rash. MUSCULOSKELETAL: No cyanosis or clubbing. Strength 5/5 upper and lower extremities. His right shoulder has a dressing in place. He has decreased range of motion of the shoulder. NEUR O: Cranial nerves intact. Normal sensation to light touch. PSYCH: Awake, alert oriented x3. Norm al affect. Normal judgment and insight. Normal memory. LABORATORY DATA: I have ordered a CBC and chem 7 for tomorrow morning. MRI of the shoulder was last performed preoperatively, showing osteomyelitis of the clavicle, acromion, and scapular spine. This case was discussed with Dr. Dunlap. He will see the patient again during this hospitalization for o ngoing septic shoulder management. MEDICAL RECORDS REVIEW: I reviewed medical records and summarized them as under HPI. ASSESSMENT AND PLAN: 1. Septic right shoulder with group B streptococcus and Propionibacterium acnes. Status post incisi on and drainage with distal clavicle acromion resection on May 03. We will continue IV ceftriaxo ne and reconsult Infectious Disease. He has ongoing pain and a large amount of drainage from the gal ulder. Could consider reimaging to see if there is additional foci of infection. Dr. Dunlap will se e him in consultation. 2. Status post septic shock. Blood pressure is now stabilized. 3. Diabetes type 2. We will continue his usual insulin, plus a sliding scale. 4. Blindness. We will continue his usual eye drop regimen. 5. Alcohol cirrhosis. We will check LFTs and a pro-time in the morning. 6. Bipolar disorder. Continue Seroquel. CODE STATUS: Full. ADMISSION STATUS: We will admit to inpatient due to medical complexity. Anticipate greater than 2 m idnights. DVT PROPHYLAXIS: He is high risk. We will give him subcu Lovenox. /[id number]/MODL
--- NOTE | 2017-05-19 17:25 | PDMN ---
Medical Necessity Medical necessity: C/M review: est. > 2 MN LOS for eval and TX of acute and persistent extremely high discharge from right shoulder, septic shoulder ( osteomyelitis) with Group B Streptococcus and Propionibacterium acnes S/P I&D with distal clavicle acromion resection 05/03/2017 requiring planned Infectious disease consult, Wound Care consult, ongoing IV Ceftriaxone, acute inpt PT/OT, comorbid 1--05/18/2017 hospitalization for septic shock, osteomyelitis , tupe 2 diabetes, blindness, bipolar disorder per H/P.
[2017-05-19] MEDS: QUEtiapine FUMARATE 100 MG TAB PO SCH (17:37)
[2017-05-19] MEDS: ACETAMINOPHEN 325 MG TAB PO PRN (17:37)
[2017-05-19] MEDS: PANTOPRAZOLE SODIUM 40 MG TAB PO SCH (17:37)
[2017-05-19] MEDS: INSULIN REGULAR HUMAN 100 UNIT/ML SC SCH ×2 (17:39→21:44)
[2017-05-19] MEDS: INSULIN GLARGINE 100 UNITS/ML SYRINGE SC SCH (18:05)
[2017-05-19] MEDS: cefTRIAXone 2 GM in D5W 50 ML IV SCH (19:01)
[2017-05-19] MEDS: oxyCODONE IR 5 MG TAB PO PRN (20:02)
[2017-05-19] MEDS: BRIMONIDINE/TIMOLOL 5 ML OPHT.BTL RTEYE SCH (20:02)
[2017-05-19] MEDS: LATANOPROST 0.005% 2.5 ML OPHT DROPS RTEYE SCH (20:03)
[2017-05-19] MEDS: DICLOFENAC SODIUM 1% 100 GM GEL TP SCH ×2 (20:03→20:06)
[2017-05-19] MEDS: GABAPENTIN 300 MG CAP PO SCH (21:44)
[2017-05-20] MEDS: oxyCODONE IR 5 MG TAB PO PRN ×4 (02:10→20:08)
[2017-05-20] MEDS: DICLOFENAC SODIUM 1% 100 GM GEL TP SCH ×4 (04:42→20:07)
[2017-05-20 04:56] LABS: INR 1.24 (0.83-1.16); PROTIME(PATIENT) 15.6 SEC (12.0-15.0)
[2017-05-20 05:01] LABS: ADD DIFF? NO; ADD MORPH? NO; ADD SCAN? NO; ATYPICAL LYMPHOCYTE FLAG 40 (0-99); FRAGMENT RBC FLAG 0 (0-99); HEMATOCRIT 23.6 % (40.0-51.0); LEFT SHIFT FLG 0 (0-99); LIPEMIA HEMOLYSIS FLAG 90 (0-99); MEAN CELL HEMOGLOBIN 29.7 pg (27.9-34.1); MEAN CELL HEMOGLOBIN CONCENTR. 33.9 g/dL (32.4-36.7); MEAN CELL VOLUME 87.7 fL (81.5-99.8); MEAN PLATELET VOLUME 10.7 fL (8.7-11.7); PLATELET CLUMPS FLAG 0 (0-99); PLATELET COUNT 81 10^3/uL (150-400); RED BLOOD CELL COUNT 2.69 10^6/uL (4.40-6.38); RED CELL DISTRIBUTION WIDTH 15.4 % (11.5-15.2)
[2017-05-20 05:04] LABS: ALANINE AMINOTRANSFERASE 22 IU/L (21-72); ALBUMIN 2.2 g/dL (3.5-5.0); ALKALINE PHOSPHATASE 113 IU/L (38-126); ANION GAP 9 mEq/L (8-16); ASPARTATE AMINOTRANSFERASE 17 IU/L (17-59); BILIRUBIN,TOTAL 0.3 mg/dL (0.1-1.4); BILIRUBIN-CONJUGATED 0.2 mg/dL (0.0-0.5); BILIRUBIN-UNCONJUGATED 0.1 mg/dL (0.0-1.1); CALCIUM 7.7 mg/dL (8.5-10.4); CARBON DIOXIDE 25 mEq/l (22-31); CHLORIDE 103 mEq/L (97-110); GLOMERULAR FILTRATION RATE > 60; GLUCOSE 153 mg/dL (70-100); POTASSIUM 3.3 mEq/L (3.5-5.2); SODIUM 137 mEq/L (134-144); TOTAL PROTEIN 5.6 g/dL (6.3-8.2)
[2017-05-20] MEDS ORDERED: ENOXAPARIN 40 MG/0.4 ML SYR SC SCH (09:00)
[2017-05-20] MEDS ORDERED: NON-FORMULARY NEW DRUG (Ceftriaxone [Rocephin] 2 GM) IV SCH (09:00)
[2017-05-20] MEDS ORDERED: cefTRIAXone 2 GM in D5W 50 ML IV SCH (09:00)
[2017-05-20] MEDS: INSULIN GLARGINE 100 UNITS/ML SYRINGE SC SCH ×2 (09:15→18:02)
[2017-05-20] MEDS: CHOLECALCIFEROL VIT D3 1,000 UNITS TAB PO SCH (09:15)
[2017-05-20] MEDS: INSULIN REGULAR HUMAN 100 UNIT/ML SC SCH ×4 (09:17→22:23)
[2017-05-20] MEDS: GABAPENTIN 300 MG CAP PO SCH ×3 (09:19→21:34)
[2017-05-20] MEDS: LISINOPRIL 5 MG TAB PO SCH (09:20)
[2017-05-20] MEDS: cefTRIAXone 2 GM in D5W 50 ML IV SCH (09:32)
[2017-05-20] MEDS: BRIMONIDINE/TIMOLOL 5 ML OPHT.BTL RTEYE SCH ×2 (09:32→20:07)
--- NOTE | 2017-05-20 17:07 | HOSPPROG ---
Hospitalist Progress Note Assessment/Plan: * Septic right shoulder abscess and osteomyelitis s/p I&D, clavicle/acromion resection -still large volume fluid from wound -per Dr. Dunlap - continue to monitor inpatient - ortho to re-eval every 2-3 days -IV ceftriaxone - ID to follow * Etoh cirrhosis -sober for 7 years * Pancytopenia -continue to follow * Dm II -Lantus * HTN -lisinopril * Bipolar -Seroquel * Blindness -continue eye gtt Subjective: Pain in shoulder better after ortho drained more fluid yesterday Objective: Vital Signs Temp Pulse Resp BP Pulse Ox 37.1 C 99 17 125/75 H 97 05/20/17 00:00 05/20/17 16:00 05/20/17 16:00 05/20/17 16:00 05/20/17 16:00 Laboratory Results 05/20/17 04:40 05/20/17 04:40 05/19/17 05/20/17 05/21/17 05:59 05:59 05:59 Intake Total 400 300 Output Total 400 275 Balance 0 25 PT 15.6 SEC (12.0-15.0) H 05/20/17 04:40 INR 1.24 (0.83-1.16) H 05/20/17 04:40 - Physical Exam Constitutional: no apparent distress, appears nourished, not in pain Cardiovascular: regular rate and rhythym, no murmur, rub, or gallop Respiratory: no respiratory distress, no rales or rhonchi, clear to auscultation Skin: no rashes or abrasions, no fluctuance, no induration Neurologic: AAOx3, sensation intact bilaterally Psychiatric: interacting appropriately, not anxious, not encephalopathic, thought process linear ICD10 Worksheet Patient Problems: Problems Problem Status Onset Altered mental status Acute Head injury Acute Hyponatremia Acute Osteomyelitis Acute Scalp laceration Acute Sepsis Acute
[2017-05-20] MEDS ORDERED: PROTOCOL POTASSIUM 1 DOSE MISC PRN (17:10)
[2017-05-20] MEDS: PANTOPRAZOLE SODIUM 40 MG TAB PO SCH (17:57)
[2017-05-20] MEDS: QUEtiapine FUMARATE 100 MG TAB PO SCH (17:57)
--- NOTE | 2017-05-20 18:18 | PCMIDPN ---
Assessment/Plan: Assessment: R shoulder abscess and osteomyelitis -- s/p resection. On ceftriaxone at SNF and reportedly some quality of care issues and unclear delivery of antibiotics. Now back and stable. Plan: 1) Continue on ceftriaxone. Total of 6 weeks of therapy after debridement. 05/20/17 23:11 05/20/17 23:12 Subjective: Patient doing well. No new events. Objective: Vital Signs Temp Pulse Resp BP Pulse Ox 37.1 C 99 17 125/75 H 97 05/20/17 00:00 05/20/17 16:00 05/20/17 16:00 05/20/17 16:00 05/20/17 16:00 Laboratory Results 05/20/17 04:40 05/20/17 04:40 05/19/17 05/20/17 05/21/17 05:59 05:59 05:59 Intake Total 400 300 Output Total 400 275 Balance 0 25 ceftriaxone # 2 - Physical Exam General Appearance: WD/WN, alert, no apparent distress, non-toxic Skin: normal color, warm/dry, No rash ICD10 Worksheet Patient Problems: Problems Problem Status Onset Altered mental status Acute Head injury Acute Hyponatremia Acute Osteomyelitis Acute Scalp laceration Acute Sepsis Acute
[2017-05-20 18:36] LABS: POTASSIUM 3.8 mEq/L (3.5-5.2)
[2017-05-20] MEDS ORDERED: POTASSIUM CL 10 MEQ TAB PO ONE (19:31)
[2017-05-20] MEDS: LATANOPROST 0.005% 2.5 ML OPHT DROPS RTEYE SCH (20:08)
--- NOTE | 2017-05-20 20:28 | SOAPPROG ---
SODID[facility] Progress Note Assessment/Plan: Assessment: HPI: 62 year old male now POD#18 from a right shoulder multi-lobulated abscess incision and drainage with right lateral clavicle, right acromion, and right lateral scapular spine resection due to concomitant osteomyelitis on 05/02/17 PE: RUE: Incision nicely approximated 3cm by 2cm area of fluctuance along posterior incision line -- gentle pressure allowed for decompression of a small seroma which has been decreasing size and volume over time Some of the sutures were removed +D, B, T, ECRL, ECRB, EPL, FPL, FDS, FDP +A / M / R / U SILT 2+ radial and ulnar pulses Assessment and Plan: 62 year old male now POD#18 from a right shoulder multi-lobulated abscess incision and drainage with right lateral clavicle, right acromion, and right lateral scapular spine resection due to concomitant osteomyelitis on 05/02/17 - - currently with a small seroma along posterior incision which is resolving -New dry sterile dressing applied to be left in place. Do not remove dressing. Reinforce if needed -Keep right shoulder clean and dry -Continue on IV antibiotics per ID recommendations -Encourage gentle right shoulder, elbow, wrist, finger, and thumb ROM -Partial WB on RUE -We will plan on patient remaining inpatient until seroma completely resolves and all sutures are removed. Dressing will be changed and wound will be evaluated by Alysha Bell PA-C and/or Dr. Dunlap every 2-3 days 05/20/17 20:25 Objective: Vital Signs Temp Pulse Resp BP Pulse Ox 37.1 C 99 17 125/75 H 97 05/20/17 00:00 05/20/17 16:00 05/20/17 16:00 05/20/17 16:00 05/20/17 16:00 Laboratory Results 05/20/17 04:40 05/20/17 18:10 05/19/17 05/20/17 05/21/17 05:59 05:59 05:59 Intake Total 400 2000 Output Total 400 1275 Balance 0 725 PT 15.6 SEC (12.0-15.0) H 05/20/17 04:40 INR 1.24 (0.83-1.16) H 05/20/17 04:40 ICD10 Worksheet Patient Problems: Problems Problem Status Onset Altered mental status Acute Head injury Acute Hyponatremia Acute Osteomyelitis Acute Scalp laceration Acute Sepsis Acute
--- NOTE | 2017-05-20 22:14 | CPEKG ---
Heart Rate: 125 RR Interval: 480 QRSD Interval: 74 QT Interval: 304 QTC Interval: 439 QRS Fleming: 46 T Wave Fleming: 5 EKG Severity - ABNORMAL ECG - EKG Impression: SINUS TACHYCARDIA WITH MODERATE BASELINE ARTIFACT EKG Impression: ABNRM R PROG, CONSIDER ASMI OR LEAD PLACEMENT Electronically Signed By: Manoj Godoy 21-May-2017 10:03:52
--- NOTE | 2017-05-20 22:29 | HOSPPROG ---
Hospitalist Progress Note Assessment/Plan: Cross cover: Called by RN about new, asymptomatic tachycardia. ECG shows Afib with HR in 120's. BP 140/80 and patient asymptomatic. Will start metoprolol 25 mg PO BID. Objective: Vital Signs Temp Pulse Resp BP Pulse Ox 37.1 C 99 17 125/75 H 97 05/20/17 00:00 05/20/17 16:00 05/20/17 16:00 05/20/17 16:00 05/20/17 16:00 Laboratory Results 05/20/17 04:40 05/20/17 18:10 05/19/17 05/20/17 05/21/17 05:59 05:59 05:59 Intake Total 400 2000 Output Total 400 1275 Balance 0 725 PT 15.6 SEC (12.0-15.0) H 05/20/17 04:40 INR 1.24 (0.83-1.16) H 05/20/17 04:40 ICD10 Worksheet Patient Problems: Problems Problem Status Onset Altered mental status Acute Head injury Acute Hyponatremia Acute Osteomyelitis Acute Scalp laceration Acute Sepsis Acute
[2017-05-20] MEDS: METOPROLOL TARTRATE 25 MG TAB PO SCH (22:34)
[2017-05-21] MEDS: oxyCODONE IR 5 MG TAB PO PRN ×4 (01:56→19:57)
[2017-05-21 05:22] LABS: ANION GAP 7 mEq/L (8-16); CALCIUM 7.8 mg/dL (8.5-10.4); CARBON DIOXIDE 27 mEq/l (22-31); CHLORIDE 104 mEq/L (97-110); CREATININE 0.9 mg/dL (0.7-1.3); GLOMERULAR FILTRATION RATE > 60; GLUCOSE 171 mg/dL (70-100); POTASSIUM 3.8 mEq/L (3.5-5.2); SODIUM 138 mEq/L (134-144)
[2017-05-21 05:24] LABS: % IMMATURE GRANULYOCYTES 0.4 % (0.0-1.1); ABSOLUTE IMMATURE GRANULOCYTES 0.01 10^3/uL (0.00-0.10); ADD DIFF? NO; ADD MORPH? NO; ADD SCAN? NO; ATYPICAL LYMPHOCYTE FLAG 30 (0-99); FRAGMENT RBC FLAG 0 (0-99); HEMATOCRIT 24.9 % (40.0-51.0); HEMOGLOBIN 8.3 g/dL (13.7-17.5); LEFT SHIFT FLG 0 (0-99); LIPEMIA HEMOLYSIS FLAG 80 (0-99); MEAN CELL HEMOGLOBIN 29.3 pg (27.9-34.1); MEAN CELL HEMOGLOBIN CONCENTR. 33.3 g/dL (32.4-36.7); MEAN PLATELET VOLUME 10.9 fL (8.7-11.7); PLATELET CLUMPS FLAG 0 (0-99); PLATELET COUNT 83 10^3/uL (150-400); RED BLOOD CELL COUNT 2.83 10^6/uL (4.40-6.38); RED CELL DISTRIBUTION WIDTH 15.4 % (11.5-15.2)
[2017-05-21] MEDS: DICLOFENAC SODIUM 1% 100 GM GEL TP SCH ×4 (05:32→22:40)
[2017-05-21] MEDS: INSULIN REGULAR HUMAN 100 UNIT/ML SC SCH ×4 (07:31→21:18)
[2017-05-21] MEDS: INSULIN GLARGINE 100 UNITS/ML SYRINGE SC SCH ×2 (08:04→17:00)
[2017-05-21] MEDS: BRIMONIDINE/TIMOLOL 5 ML OPHT.BTL RTEYE SCH ×2 (08:10→19:58)
[2017-05-21] MEDS: GABAPENTIN 300 MG CAP PO SCH ×3 (08:19→21:18)
[2017-05-21] MEDS: METOPROLOL TARTRATE 25 MG TAB PO SCH ×2 (08:19→19:57)
[2017-05-21] MEDS: LISINOPRIL 5 MG TAB PO SCH (08:19)
[2017-05-21] MEDS: cefTRIAXone 2 GM in D5W 50 ML IV SCH (08:24)
[2017-05-21] MEDS ORDERED: POTASSIUM CL 10 MEQ TAB PO ONE (08:33)
--- NOTE | 2017-05-21 10:29 | ASMTCMCOM ---
CM Note CM Note Notes: Patient admitted to [facility] yesterday from [facility] where he was found to have significant drainage from an injury on his shoulder. He had been at [facility] from 05/03 - 05/19 receiving pressors, IV abx, and wound care for the same injury/septic shock. He will remain inpatient here until seroma completely resolves and all sutures are removed. He will then likely return to pending care team recommendations. Current CM discharge plan: [facility] unless otherwise indicated Date Signed: 05/21/2017 10:28 AM Electronically Signed By:Padmini Deal RN
--- NOTE | 2017-05-21 12:13 | HOSPPROG ---
Hospitalist Progress Note Assessment/Plan: 62y male with infection and pain. First encounter, chart reviewed. * Septic right shoulder abscess and osteomyelitis s/p I&D, clavicle/acromion resection -still large volume fluid from wound -per Dr. Dunlap - continue to monitor inpatient - ortho to re-eval every 2-3 days -IV ceftriaxone - ID to follow * Etoh cirrhosis -sober for 7 years * Pancytopenia -continue to follow * Dm II -Lantus * HTN -lisinopril * Bipolar -Seroquel * Blindness -continue eye gtt * Afib -started on lopressor -25mg po BID -rate controlled *Dispo -return to BM when cleared by ID and ortho Subjective: Feeling well. Resting. Some discomfort. Objective: Vital Signs Temp Pulse Resp BP Pulse Ox 36.4 C 89 17 130/72 H 94 05/21/17 07:24 05/21/17 08:19 05/21/17 07:24 05/21/17 08:19 05/21/17 07:24 Laboratory Results 05/21/17 04:55 05/21/17 04:55 05/20/17 05/21/17 05/22/17 05:59 05:59 05:59 Intake Total 400 2300 400 Output Total 400 1775 500 Balance 0 525 -100 PT 15.6 SEC (12.0-15.0) H 05/20/17 04:40 INR 1.24 (0.83-1.16) H 05/20/17 04:40 - Physical Exam Constitutional: appears nourished, chronically ill appearing, uncomfortable Eyes: No PERRL, No anicteric sclera, No EOMI Ears, Nose, Mouth, Throat: moist mucous membranes, hearing normal, ears appear normal Cardiovascular: irregularly irregular, No JVD, No edema Respiratory: no respiratory distress, no rales or rhonchi, reduced air movement Gastrointestinal: No tenderness, No ascites, No guarding Skin: warm, normal color, No erythema Musculoskeletal: joint tenderness, pain with ROM, generalized weakness Neurologic: AAOx3 Psychiatric: not anxious, not encephalopathic, thought process linear ICD10 Worksheet Patient Problems: Problems Problem Status Onset Altered mental status Acute Head injury Acute Scalp laceration Acute Sepsis Acute Hyponatremia Acute Osteomyelitis Acute
[2017-05-21] MEDS: ACETAMINOPHEN 325 MG TAB PO PRN ×2 (15:43→19:57)
[2017-05-21] MEDS ORDERED: D50W 25 GM/50 ML VIAL IVP PRN (16:30)
[2017-05-21] MEDS: PANTOPRAZOLE SODIUM 40 MG TAB PO SCH (17:03)
[2017-05-21] MEDS: QUEtiapine FUMARATE 100 MG TAB PO SCH (17:03)
[2017-05-21 18:46] LABS: POTASSIUM 3.9 mEq/L (3.5-5.2)
[2017-05-21] MEDS: LATANOPROST 0.005% 2.5 ML OPHT DROPS RTEYE SCH (19:58)
[2017-05-21] MEDS: HYDROmorphone HCL/NS/PF 0.4 MG/2 ML SYR IV PRN (21:18)
[2017-05-22] MEDS: oxyCODONE IR 5 MG TAB PO PRN ×5 (00:05→21:14)
[2017-05-22] MEDS: HYDROmorphone HCL/NS/PF 0.4 MG/2 ML SYR IV PRN ×5 (01:10→22:20)
[2017-05-22] MEDS ORDERED: POTASSIUM CL 10 MEQ TAB PO ONE (01:51)
[2017-05-22] MEDS: DICLOFENAC SODIUM 1% 100 GM GEL TP SCH ×4 (04:39→21:14)
[2017-05-22 05:11] LABS: POTASSIUM 4.2 mEq/L (3.5-5.2)
--- NOTE | 2017-05-22 09:30 | HOSPPROG ---
Hospitalist Progress Note Assessment/Plan: Patient is a 62y male who is a long-term resident. A few weeks ago he lost his balance striking his shoulder on the wall. The shoulder progressively worsened and became more swollen and painful. He was admitted to [facility] and was in septic shock at that time. His blood cultures grew out B strep. He improved and was discharged to [facility]. Per the patient, he was having more discharge from his shoulder and was admitted for further care. * Septic right shoulder abscess and osteomyelitis s/p I&D, clavicle/acromion resection -still large volume fluid from wound/has a seroma -per Dr. Dunlap - continue to monitor inpatient - ortho to re-eval every 2-3 days -IV ceftriaxone - ID to follow/will need 6 weeks of therapy after date of debridement * Etoh cirrhosis -sober for 7 years * Pancytopenia -continue to follow * Dm II -Lantus * HTN -lisinopril * Bipolar -Seroquel * Blindness -continue eye gtt * Paroxysmal Afib/ one episode noted -Lopressor initiated -evaluated 12 lead/shows ST *Dispo -return to BM when cleared by ID and ortho Subjective: Leighann says his right shoulder has been painful. Objective: Vital Signs Temp Pulse Resp BP Pulse Ox 36.8 C 73 12 151/89 H 97 05/22/17 07:21 05/22/17 07:21 05/22/17 07:21 05/22/17 07:21 05/22/17 07:21 Laboratory Results 05/21/17 04:55 05/22/17 04:45 05/21/17 05/22/17 05/23/17 05:59 05:59 05:59 Intake Total 2300 400 Output Total 1775 2900 Balance 525 -2500 PT 15.6 SEC (12.0-15.0) H 05/20/17 04:40 INR 1.24 (0.83-1.16) H 05/20/17 04:40 - Physical Exam Constitutional: chronically ill appearing Eyes: other (blind) Ears, Nose, Mouth, Throat: hearing normal Cardiovascular: regular rate and rhythym, No tachycardia Respiratory: no respiratory distress, no rales or rhonchi Gastrointestinal: normoactive bowel sounds Skin: warm Musculoskeletal: generalized weakness Neurologic: AAOx3 Psychiatric: interacting appropriately, not anxious ICD10 Worksheet Patient Problems: Problems Problem Status Onset Altered mental status Acute Head injury Acute Hyponatremia Acute Osteomyelitis Acute Scalp laceration Acute Sepsis Acute
[2017-05-22] MEDS: METOPROLOL TARTRATE 25 MG TAB PO SCH ×2 (09:34→21:15)
[2017-05-22] MEDS: GABAPENTIN 300 MG CAP PO SCH ×3 (10:09→21:15)
[2017-05-22] MEDS: INSULIN REGULAR HUMAN 100 UNIT/ML SC SCH ×4 (10:10→21:22)
[2017-05-22] MEDS: LISINOPRIL 5 MG TAB PO SCH (10:11)
[2017-05-22] MEDS: BRIMONIDINE/TIMOLOL 5 ML OPHT.BTL RTEYE SCH ×2 (10:11→21:15)
[2017-05-22] MEDS: INSULIN GLARGINE 100 UNITS/ML SYRINGE SC SCH ×2 (10:12→19:16)
[2017-05-22] MEDS: cefTRIAXone 2 GM in D5W 50 ML IV SCH (10:12)
[2017-05-22] MEDS: ACETAMINOPHEN 325 MG TAB PO PRN ×3 (11:39→21:14)
[2017-05-22] MEDS: PANTOPRAZOLE SODIUM 40 MG TAB PO SCH (16:29)
[2017-05-22] MEDS: QUEtiapine FUMARATE 100 MG TAB PO SCH ×2 (16:29→19:16)
[2017-05-22 18:20] LABS: POTASSIUM 4.1 mEq/L (3.5-5.2)
[2017-05-22] MEDS: ONDANSETRON 4 MG/2 ML VIAL IVP PRN (18:37)
[2017-05-22] MEDS: LATANOPROST 0.005% 2.5 ML OPHT DROPS RTEYE SCH (21:15)
--- NOTE | 2017-05-22 21:35 | SOAPPROG ---
SOAP Progress Note Assessment/Plan: Assessment: HPI: 62 year old male now POD#20 from a right shoulder multi-lobulated abscess incision and drainage with right lateral clavicle, right acromion, and right lateral scapular spine resection due to concomitant osteomyelitis on 05/02/17. He reports his shoulder pain is continuing to improve. PE: RUE: Incision nicely approximated 5cm by 5cm area of fluctuance along posterior incision line -- gentle pressure applied to this area allowed for decompression of a small seroma (no purulent drainage) Some of the sutures were removed +D, B, T, ECRL, ECRB, EPL, FPL, FDS, FDP +A / M / R / U SILT 2+ radial and ulnar pulses Assessment and Plan: 62 year old male now POD#20 from a right shoulder multi-lobulated abscess incision and drainage with right lateral clavicle, right acromion, and right lateral scapular spine resection due to concomitant osteomyelitis on 05/02/17 - - currently with a small seroma (decreasing in size) along posterior incision which has been completely decompressed with direct pressure -New dry sterile dressing applied to be left in place. Do not remove dressing. Reinforce if needed -Keep right shoulder clean and dry -Continue on IV antibiotics per ID recommendations -Encourage gentle right shoulder, elbow, wrist, finger, and thumb ROM -Partial WB on RUE -We will plan on patient remaining inpatient. Dressing will be changed and wound will be evaluated by Alysha Bell PA-C or Dr. Dunlap every 2-3 days 05/22/17 21:28 Objective: Vital Signs Temp Pulse Resp BP Pulse Ox 36.5 C 82 16 123/72 H 98 05/22/17 15:22 05/22/17 15:22 05/22/17 15:22 05/22/17 15:22 05/22/17 15:22 Laboratory Results 05/21/17 04:55 05/22/17 17:50 05/21/17 05/22/17 05/23/17 05:59 05:59 05:59 Intake Total 2300 400 400 Output Total 1775 2900 2 Balance 525 -2500 398 PT 15.6 SEC (12.0-15.0) H 05/20/17 04:40 INR 1.24 (0.83-1.16) H 05/20/17 04:40 ICD10 Worksheet Patient Problems: Problems Problem Status Onset Altered mental status Acute Head injury Acute Hyponatremia Acute Osteomyelitis Acute Scalp laceration Acute Sepsis Acute
[2017-05-23] MEDS: oxyCODONE IR 5 MG TAB PO PRN ×5 (00:45→21:48)
[2017-05-23] MEDS: HYDROmorphone HCL/NS/PF 0.4 MG/2 ML SYR IV PRN ×2 (01:31→06:08)
[2017-05-23 05:18] LABS: ALANINE AMINOTRANSFERASE 17 IU/L (21-72); ALBUMIN 2.6 g/dL (3.5-5.0); ALKALINE PHOSPHATASE 105 IU/L (38-126); ANION GAP 9 mEq/L (8-16); ASPARTATE AMINOTRANSFERASE 15 IU/L (17-59); BILIRUBIN,TOTAL 0.4 mg/dL (0.1-1.4); CALCIUM 7.9 mg/dL (8.5-10.4); CARBON DIOXIDE 23 mEq/l (22-31); CHLORIDE 104 mEq/L (97-110); CREATININE 0.8 mg/dL (0.7-1.3); GLOMERULAR FILTRATION RATE > 60; GLUCOSE 252 mg/dL (70-100); POTASSIUM 3.9 mEq/L (3.5-5.2); SODIUM 136 mEq/L (134-144); TOTAL PROTEIN 5.5 g/dL (6.3-8.2)
[2017-05-23] MEDS: DICLOFENAC SODIUM 1% 100 GM GEL TP SCH ×4 (06:31→21:50)
[2017-05-23] MEDS: INSULIN REGULAR HUMAN 100 UNIT/ML SC SCH ×4 (08:33→21:47)
[2017-05-23] MEDS: LISINOPRIL 5 MG TAB PO SCH (08:34)
[2017-05-23] MEDS: GABAPENTIN 300 MG CAP PO SCH ×3 (08:34→21:47)
[2017-05-23] MEDS: METOPROLOL TARTRATE 25 MG TAB PO SCH ×2 (08:34→21:48)
[2017-05-23] MEDS: cefTRIAXone 2 GM in D5W 50 ML IV SCH (08:35)
[2017-05-23] MEDS: BRIMONIDINE/TIMOLOL 5 ML OPHT.BTL RTEYE SCH ×2 (08:37→21:49)
[2017-05-23] MEDS: INSULIN GLARGINE 100 UNITS/ML SYRINGE SC SCH ×2 (08:37→17:02)
--- NOTE | 2017-05-23 10:10 | HOSPPROG ---
Hospitalist Progress Note Assessment/Plan: Patient is a 62y male who is a alf resident. A few weeks ago he lost his balance striking his shoulder on the wall. The shoulder progressively worsened and became more swollen and painful. He was admitted to [facility] and was in septic shock at that time. His blood cultures grew out B strep. He improved and was discharged to [facility]. Per the patient, he was having more discharge from his shoulder and was admitted for further care. * Septic right shoulder abscess and osteomyelitis s/p I&D, clavicle/acromion resection -has a seroma -per Dr. Dunlap - continue to monitor inpatient - ortho to re-eval every 2-3 days -IV ceftriaxone - ID to follow/will need 6 weeks of therapy after date of debridement -ortho notes wound looks stable last night * Etoh cirrhosis -sober for 7 years * Pancytopenia -continue to follow * Dm II -Lantus * HTN -lisinopril * Bipolar -Seroquel * Blindness -continue eye gtt * Paroxysmal Afib/ one episode noted -Lopressor initiated -evaluated 12 lead/shows ST *Dispo -return to when cleared by ID and ortho/ spoke w ID and he should be fine to return to /will discuss with ortho as to when he can return/ In addition, will take with CM and ask that they call [facility] to be sure patient is getting care needed. Subjective: Leighann has no complaints/ enjoying being in the hospital with the good medical care. Objective: Vital Signs Temp Pulse Resp BP Pulse Ox 37.0 C 76 18 133/69 H 99 05/23/17 08:00 05/23/17 08:34 05/23/17 08:00 05/23/17 08:34 05/23/17 08:00 Laboratory Results 05/21/17 04:55 05/23/17 04:45 05/22/17 05/23/17 05/24/17 05:59 05:59 05:59 Intake Total 400 400 Output Total 2900 402 Balance -2500 -2 PT 15.6 SEC (12.0-15.0) H 05/20/17 04:40 INR 1.24 (0.83-1.16) H 05/20/17 04:40 - Physical Exam Constitutional: no apparent distress, appears nourished Eyes: other (blind) Ears, Nose, Mouth, Throat: moist mucous membranes, hearing normal Cardiovascular: regular rate and rhythym Respiratory: no respiratory distress Gastrointestinal: normoactive bowel sounds Skin: warm, other (dressing on right shoulder) Neurologic: AAOx3 Psychiatric: interacting appropriately, not anxious ICD10 Worksheet Patient Problems: Problems Problem Status Onset Altered mental status Acute Head injury Acute Hyponatremia Acute Osteomyelitis Acute Scalp laceration Acute Sepsis Acute
[2017-05-23] MEDS ORDERED: POTASSIUM CL 10 MEQ TAB PO ONE (11:15)
--- NOTE | 2017-05-23 11:47 | PCMIDPN ---
Assessment/Plan: Assessment/Plan: * Right shoulder abscess/osteomyelitis due to group B Streptococcus and P. acnes status post debridement: Continue ceftriaxone with anticipated 6 week course of therapy. Antibiotic stop date is 06/17/2016. Will monitor weekly CBC and CMP on treatment. * Leukopenia: Likely due to cirrhosis. ANC remains greater than 1000. Doubt ceftriaxone related. Will follow peripherally. Please notify with any questions or concerns. 05/23/17 11:44 05/23/17 11:45 05/23/17 11:46 Subjective: Patient with less shoulder pain. Objective: Vital Signs Temp Pulse Resp BP Pulse Ox 37.0 C 76 18 133/69 H 99 05/23/17 08:00 05/23/17 08:34 05/23/17 08:00 05/23/17 08:34 05/23/17 08:00 Laboratory Results 05/21/17 04:55 05/23/17 04:45 05/22/17 05/23/17 05/24/17 05:59 05:59 05:59 Intake Total 400 400 Output Total 2900 402 Balance -2500 -2 Ceftriaxone (stop date 06/17/2016) - Physical Exam General Appearance: alert, no apparent distress Cardiac/Chest: regular rate, rhythm Extremities: inflammation (Right shoulder dressed postoperatively; serous drainage at posterior margin of dressing although significantly decreased versus time of last exam) Abdomen: non-tender, No distended - Line/s LUE PICC Lines: No drainage, No erythema ICD10 Worksheet Patient Problems: Problems Problem Status Onset Altered mental status Acute Head injury Acute Hyponatremia Acute Osteomyelitis Acute Scalp laceration Acute Sepsis Acute
[2017-05-23] MEDS: PANTOPRAZOLE SODIUM 40 MG TAB PO SCH (17:02)
[2017-05-23] MEDS: QUEtiapine FUMARATE 100 MG TAB PO SCH (17:02)
[2017-05-23 17:41] LABS: POTASSIUM 4.5 mEq/L (3.5-5.2)
[2017-05-23] MEDS: LATANOPROST 0.005% 2.5 ML OPHT DROPS RTEYE SCH (22:32)
[2017-05-24] MEDS: oxyCODONE IR 5 MG TAB PO PRN ×4 (04:54→21:16)
[2017-05-24 05:29] LABS: POTASSIUM 4.2 mEq/L (3.5-5.2)
[2017-05-24] MEDS: DICLOFENAC SODIUM 1% 100 GM GEL TP SCH ×4 (07:09→21:20)
[2017-05-24] MEDS: INSULIN REGULAR HUMAN 100 UNIT/ML SC SCH ×4 (08:22→21:17)
[2017-05-24] MEDS: INSULIN GLARGINE 100 UNITS/ML SYRINGE SC SCH ×2 (08:22→17:42)
[2017-05-24] MEDS: BRIMONIDINE/TIMOLOL 5 ML OPHT.BTL RTEYE SCH ×2 (08:22→21:19)
[2017-05-24] MEDS: METOPROLOL TARTRATE 25 MG TAB PO SCH ×2 (08:22→21:16)
[2017-05-24] MEDS: LISINOPRIL 5 MG TAB PO SCH (08:23)
[2017-05-24] MEDS: cefTRIAXone 2 GM in D5W 50 ML IV SCH (08:23)
[2017-05-24] MEDS: GABAPENTIN 300 MG CAP PO SCH ×3 (08:23→21:16)
--- NOTE | 2017-05-24 08:39 | HOSPPROG ---
Hospitalist Progress Note Assessment/Plan: Patient is a 62y male who is a assisted resident. A few weeks ago he lost his balance striking his shoulder on the wall. The shoulder progressively worsened and became more swollen and painful. He was admitted to [facility] and was in septic shock at that time. His blood cultures grew out B strep. He improved and was discharged to [facility]. Per the patient, he was having more discharge from his shoulder and was admitted for further care. * Septic right shoulder abscess and osteomyelitis s/p I&D, clavicle/acromion resection -has a seroma -per Dr. Dunlap - continue to monitor inpatient - ortho to re-eval every 2-3 days -IV ceftriaxone - ID to follow/will need 6 weeks of therapy after date of debridement -ortho notes wound looks stable * Etoh cirrhosis -sober for 7 years * Pancytopenia -continue to follow * Dm II -Lantus * HTN -lisinopril * Bipolar -Seroquel * Blindness -continue eye gtt * Paroxysmal Afib/ one episode noted -Lopressor initiated -evaluated 12 lead/shows ST *Dispo will ask orthopedics surgery when they are ok for patient to return to / will ask CM to be sure care is well coordinated Subjective: Leighann doesn't like the bed/ said his back and butt are sore. Objective: Vital Signs Temp Pulse Resp BP Pulse Ox 36.9 C 82 17 116/67 98 05/24/17 07:22 05/24/17 08:22 05/24/17 07:22 05/24/17 08:23 05/24/17 07:22 Laboratory Results 05/21/17 04:55 05/24/17 05:00 05/23/17 05/24/17 05/25/17 05:59 05:59 05:59 Intake Total 400 500 Output Total 402 1000 Balance -2 -500 PT 15.6 SEC (12.0-15.0) H 05/20/17 04:40 INR 1.24 (0.83-1.16) H 05/20/17 04:40 - Physical Exam Constitutional: chronically ill appearing Eyes: other (blind) Ears, Nose, Mouth, Throat: hearing normal Cardiovascular: regular rate and rhythym, no murmur, rub, or gallop Respiratory: no respiratory distress Skin: warm Musculoskeletal: generalized weakness Neurologic: AAOx3 Psychiatric: interacting appropriately, not anxious ICD10 Worksheet Patient Problems: Problems Problem Status Onset Altered mental status Acute Head injury Acute Hyponatremia Acute Osteomyelitis Acute Scalp laceration Acute Sepsis Acute
[2017-05-24] MEDS: QUEtiapine FUMARATE 100 MG TAB PO SCH (17:42)
[2017-05-24] MEDS: PANTOPRAZOLE SODIUM 40 MG TAB PO SCH (17:42)
[2017-05-24 18:41] LABS: POTASSIUM 4.5 mEq/L (3.5-5.2)
--- NOTE | 2017-05-24 21:16 | SOAPPROG ---
SOAP Progress Note Assessment/Plan: Assessment: HPI: 62 year old male now POD#22 from a right shoulder multi-lobulated abscess incision and drainage with right lateral clavicle, right acromion, and right lateral scapular spine resection due to concomitant osteomyelitis on 05/02/17. He reports his shoulder pain is continuing to improve. PE: RUE: Incision nicely approximated 5cm by 5cm area of fluctuance along posterior incision line -- gentle pressure applied to this area allowed for decompression of a small seroma (no purulent drainage)-- seroma is decreasing in size The remaining sutures were removed +D, B, T, ECRL, ECRB, EPL, FPL, FDS, FDP +A / M / R / U SILT 2+ radial and ulnar pulses Assessment and Plan: 62 year old male now POD#22 from a right shoulder multi-lobulated abscess incision and drainage with right lateral clavicle, right acromion, and right lateral scapular spine resection due to concomitant osteomyelitis on 05/02/17 - - currently with a small seroma (decreasing in size) along posterior incision which has been completely decompressed with direct pressure -New dry sterile dressing applied to be left in place. Do not remove dressing. Reinforce if needed -Keep right shoulder clean and dry -Continue on IV antibiotics per ID recommendations -Encourage gentle right shoulder, elbow, wrist, finger, and thumb ROM -Partial WB on RUE -We will plan on patient remaining inpatient until the seroma has resolved. Dressing will be changed and wound will be evaluated by Alysha Bell PA-C or Dr. Dunlap every 2-3 days 05/22/17 21:28 05/24/17 21:15 Objective: Vital Signs Temp Pulse Resp BP Pulse Ox 37.4 C 112 H 16 120/60 96 05/24/17 20:00 05/24/17 20:00 05/24/17 20:00 05/24/17 20:00 05/24/17 20:00 Laboratory Results 05/21/17 04:55 05/24/17 17:45 05/23/17 05/24/17 05/25/17 05:59 05:59 05:59 Intake Total 400 500 400 Output Total 402 1000 Balance -2 -500 400 PT 15.6 SEC (12.0-15.0) H 05/20/17 04:40 INR 1.24 (0.83-1.16) H 05/20/17 04:40 ICD10 Worksheet Patient Problems: Problems Problem Status Onset Altered mental status Acute Head injury Acute Hyponatremia Acute Osteomyelitis Acute Scalp laceration Acute Sepsis Acute
[2017-05-24] MEDS: LATANOPROST 0.005% 2.5 ML OPHT DROPS RTEYE SCH (21:19)
[2017-05-25] MEDS: oxyCODONE IR 5 MG TAB PO PRN ×3 (03:54→20:42)
[2017-05-25 04:20] LABS: POTASSIUM 4.4 mEq/L (3.5-5.2)
[2017-05-25] MEDS: DICLOFENAC SODIUM 1% 100 GM GEL TP SCH ×4 (05:44→20:42)
[2017-05-25] MEDS: INSULIN REGULAR HUMAN 100 UNIT/ML SC SCH ×4 (07:55→21:19)
[2017-05-25] MEDS: INSULIN GLARGINE 100 UNITS/ML SYRINGE SC SCH ×2 (08:29→16:02)
[2017-05-25] MEDS: cefTRIAXone 2 GM in D5W 50 ML IV SCH (08:29)
[2017-05-25] MEDS: GABAPENTIN 300 MG CAP PO SCH ×3 (08:30→20:41)
[2017-05-25] MEDS: LISINOPRIL 5 MG TAB PO SCH (08:30)
[2017-05-25] MEDS: METOPROLOL TARTRATE 25 MG TAB PO SCH ×2 (08:30→20:41)
[2017-05-25] MEDS: BRIMONIDINE/TIMOLOL 5 ML OPHT.BTL RTEYE SCH ×2 (08:31→20:42)
--- NOTE | 2017-05-25 13:03 | HOSPPROG ---
Hospitalist Progress Note Assessment/Plan: Patient is a 62y male who is a long-term resident. A few weeks ago he lost his balance striking his shoulder on the wall. The shoulder progressively worsened and became more swollen and painful. He was admitted to [facility] and was in septic shock at that time. His blood cultures grew out B strep. He improved and was discharged to [facility]. Per the patient, he was having more discharge from his shoulder and was admitted for further care. * Septic right shoulder abscess and osteomyelitis s/p I&D, clavicle/acromion resection -has a seroma/decreasing in size -per Dr. Dunlap - continue to monitor inpatient - ortho to re-eval every 2-3 days -IV ceftriaxone - ID following intermittently/will need 6 weeks of therapy after date of debridement -ortho notes wound looks stable * Etoh cirrhosis -sober for 7 years * Pancytopenia -continue to follow * Dm II -Lantus * HTN -lisinopril * Bipolar -Seroquel * Blindness -continue eye gtt * Paroxysmal Afib/ one episode noted -Lopressor initiated -evaluated 12 lead/shows ST *Dispo will ask orthopedics surgery when they are ok for patient to return to / will ask CM to be sure care is well coordinated and that dressing changes are done regularly and abx are available Subjective: Leighann says his pain is at a '2' to '3' on his right shoulder area. Objective: Vital Signs Temp Pulse Resp BP Pulse Ox 36.3 C 80 18 135/74 H 97 05/25/17 07:39 05/25/17 08:30 05/25/17 07:39 05/25/17 08:30 05/25/17 07:39 Laboratory Results 05/21/17 04:55 05/25/17 03:55 05/24/17 05/25/17 05/26/17 05:59 05:59 04:59 Intake Total 500 800 Output Total 1000 650 Balance -500 150 PT 15.6 SEC (12.0-15.0) H 05/20/17 04:40 INR 1.24 (0.83-1.16) H 05/20/17 04:40 - Physical Exam Constitutional: appears nourished, chronically ill appearing, No not in pain Ears, Nose, Mouth, Throat: hearing normal Cardiovascular: regular rate and rhythym Respiratory: no respiratory distress Skin: warm Musculoskeletal: generalized weakness Neurologic: AAOx3 Psychiatric: interacting appropriately, not anxious ICD10 Worksheet Patient Problems: Problems Problem Status Onset Altered mental status Acute Head injury Acute Hyponatremia Acute Osteomyelitis Acute Scalp laceration Acute Sepsis Acute
[2017-05-25] MEDS: PANTOPRAZOLE SODIUM 40 MG TAB PO SCH (16:00)
[2017-05-25] MEDS: QUEtiapine FUMARATE 100 MG TAB PO SCH (16:01)
--- NOTE | 2017-05-25 16:19 | ASMTCMCOM ---
CM Note CM Note Notes: Reviewed chart for discharge plan, pt's progress. Per MD notes, awaiting orthopedic approval for discharge back to [facility]. Pt will likely require 6 wks of IV antibiotics and wound care on d/c. CM will need to verify w/ Jennifer at [facility] that services can be provided and that pt can be closely followed. Orthopedics to re-eval in 2-3 days. CM will cont to follow. Date Signed: 05/25/2017 04:19 PM Electronically Signed By:Krystyna Means RN
[2017-05-25] MEDS: LATANOPROST 0.005% 2.5 ML OPHT DROPS RTEYE SCH (20:43)
[2017-05-25] MEDS: ACETAMINOPHEN 325 MG TAB PO PRN (21:19)
[2017-05-26] MEDS: oxyCODONE IR 5 MG TAB PO PRN ×5 (01:00→21:45)
[2017-05-26 02:54] LABS: GLUCOSE 314 mg/dL (70-100)
[2017-05-26] MEDS ORDERED: INSULIN LISPRO 100 UNIT/ML SC ONE (03:27)
[2017-05-26] MEDS: DICLOFENAC SODIUM 1% 100 GM GEL TP SCH ×4 (05:21→21:44)
[2017-05-26] MEDS: ACETAMINOPHEN 325 MG TAB PO PRN ×3 (05:26→21:46)
[2017-05-26 06:28] LABS: % IMMATURE GRANULYOCYTES 0.4 % (0.0-1.1); ABSOLUTE IMMATURE GRANULOCYTES 0.01 10^3/uL (0.00-0.10); ADD DIFF? NO; ADD MORPH? NO; ADD SCAN? NO; ATYPICAL LYMPHOCYTE FLAG 0 (0-99); FRAGMENT RBC FLAG 20 (0-99); HEMATOCRIT 25.9 % (40.0-51.0); HEMOGLOBIN 8.7 g/dL (13.7-17.5); LEFT SHIFT FLG 0 (0-99); LIPEMIA HEMOLYSIS FLAG 80 (0-99); MEAN CELL HEMOGLOBIN 29.5 pg (27.9-34.1); MEAN CELL HEMOGLOBIN CONCENTR. 33.6 g/dL (32.4-36.7); MEAN CELL VOLUME 87.8 fL (81.5-99.8); MEAN PLATELET VOLUME 10.3 fL (8.7-11.7); PLATELET CLUMPS FLAG 10 (0-99); PLATELET COUNT 110 10^3/uL (150-400); RED BLOOD CELL COUNT 2.95 10^6/uL (4.40-6.38); RED CELL DISTRIBUTION WIDTH 14.8 % (11.5-15.2)
[2017-05-26 06:46] LABS: ALANINE AMINOTRANSFERASE 26 IU/L (21-72); ALBUMIN 2.7 g/dL (3.5-5.0); ALKALINE PHOSPHATASE 104 IU/L (38-126); ANION GAP 11 mEq/L (8-16); ASPARTATE AMINOTRANSFERASE 15 IU/L (17-59); BILIRUBIN,TOTAL 0.4 mg/dL (0.1-1.4); CALCIUM 8.5 mg/dL (8.5-10.4); CARBON DIOXIDE 24 mEq/l (22-31); CHLORIDE 101 mEq/L (97-110); CREATININE 0.7 mg/dL (0.7-1.3); GLOMERULAR FILTRATION RATE > 60; GLUCOSE 191 mg/dL (70-100); POTASSIUM 4.2 mEq/L (3.5-5.2); SODIUM 136 mEq/L (134-144); TOTAL PROTEIN 6.2 g/dL (6.3-8.2)
[2017-05-26] MEDS: INSULIN GLARGINE 100 UNITS/ML SYRINGE SC SCH ×2 (08:24→17:23)
[2017-05-26] MEDS: cefTRIAXone 2 GM in D5W 50 ML IV SCH (08:25)
[2017-05-26] MEDS: INSULIN REGULAR HUMAN 100 UNIT/ML SC SCH ×4 (08:25→21:45)
[2017-05-26] MEDS: LISINOPRIL 5 MG TAB PO SCH (08:25)
[2017-05-26] MEDS: GABAPENTIN 300 MG CAP PO SCH ×3 (08:25→21:46)
[2017-05-26] MEDS: METOPROLOL TARTRATE 25 MG TAB PO SCH ×2 (08:25→21:45)
[2017-05-26] MEDS: BRIMONIDINE/TIMOLOL 5 ML OPHT.BTL RTEYE SCH ×2 (08:27→21:44)
--- NOTE | 2017-05-26 14:29 | HOSPPROG ---
Hospitalist Progress Note Assessment/Plan: Patient is a 62y male who is a longterm resident. A few weeks ago he lost his balance striking his shoulder on the wall. The shoulder progressively worsened and became more swollen and painful. He was admitted to [facility] and was in septic shock at that time. His blood cultures grew out B strep. He improved and was discharged to [facility]. Per the patient, he was having more discharge from his shoulder and was admitted for further care. * Septic right shoulder abscess and osteomyelitis s/p I&D, clavicle/acromion resection -has a seroma/decreasing in size -per Dr. Dunlap - continue to monitor inpatient - ortho to re-eval every 2-3 days -IV ceftriaxone - ID following intermittently/will need 6 weeks of therapy after date of debridement -ortho notes wound looks stable * Etoh cirrhosis -sober for 7 years * Pancytopenia -continue to follow -platelet count is better * Dm II -Lantus * HTN -lisinopril * Bipolar -Seroquel * Blindness -continue eye gtt * Paroxysmal Afib/ one episode noted -Lopressor initiated -evaluated 12 lead/shows ST *Dispo will ask orthopedics surgery when they are ok for patient to return to / will ask CM to be sure care is well coordinated and that dressing changes are done regularly and abx are available Subjective: Leighann says his shoulder is tender. Wants two cups of coffee. Objective: Vital Signs Temp Pulse Resp BP Pulse Ox 36.5 C 80 17 122/66 H 95 05/26/17 07:25 05/26/17 08:25 05/26/17 07:25 05/26/17 08:25 05/26/17 07:25 Laboratory Results 05/26/17 06:15 05/26/17 06:15 05/25/17 05/26/17 05/27/17 06:59 05:59 05:59 Intake Total Output Total Balance PT 15.6 SEC (12.0-15.0) H 05/20/17 04:40 INR 1.24 (0.83-1.16) H 05/20/17 04:40 - Physical Exam Constitutional: chronically ill appearing, uncomfortable Ears, Nose, Mouth, Throat: hearing normal Respiratory: no respiratory distress Skin: warm Musculoskeletal: generalized weakness Neurologic: AAOx3 Psychiatric: interacting appropriately, not anxious ICD10 Worksheet Patient Problems: Problems Problem Status Onset Altered mental status Acute Head injury Acute Hyponatremia Acute Osteomyelitis Acute Scalp laceration Acute Sepsis Acute
[2017-05-26] MEDS: ENOXAPARIN 40 MG/0.4 ML SYR SC SCH (15:31)
[2017-05-26] MEDS: PANTOPRAZOLE SODIUM 40 MG TAB PO SCH (17:23)
[2017-05-26] MEDS: QUEtiapine FUMARATE 100 MG TAB PO SCH (17:35)
[2017-05-26] MEDS: LATANOPROST 0.005% 2.5 ML OPHT DROPS RTEYE SCH (21:44)
[2017-05-26] MEDS: ONDANSETRON 4 MG/2 ML VIAL IVP PRN (23:22)
[2017-05-27] MEDS: ONDANSETRON 4 MG/2 ML VIAL IVP PRN (03:20)
[2017-05-27] MEDS: ACETAMINOPHEN 325 MG TAB PO PRN ×3 (04:33→21:41)
[2017-05-27] MEDS: oxyCODONE IR 5 MG TAB PO PRN ×3 (04:34→21:39)
[2017-05-27] MEDS: DICLOFENAC SODIUM 1% 100 GM GEL TP SCH ×4 (05:16→21:34)
--- NOTE | 2017-05-27 07:35 | SOAPPROG ---
SODIDIER Progress Note Assessment/Plan: Assessment: HPI: 62 year old male now POD#25 from a right shoulder multi-lobulated abscess incision and drainage with right lateral clavicle, right acromion, and right lateral scapular spine resection due to concomitant osteomyelitis on 05/02/17. He reports his shoulder pain is improving overall but is slightly more uncomfortable today PE: RUE: Incision nicely approximated Area of fluctuance along posterior incision line continues to decrease in size - - gentle pressure applied to this area allowed for decompression of a small seroma (no purulent drainage) seroma continues to decrease in size +D, B, T, ECRL, ECRB, EPL, FPL, FDS, FDP +A / M / R / U SILT 2+ radial and ulnar pulses Assessment and Plan: 62 year old male now POD#25 from a right shoulder multi-lobulated abscess incision and drainage with right lateral clavicle, right acromion, and right lateral scapular spine resection due to concomitant osteomyelitis on 05/02/17 - - currently with a small seroma (decreasing in size) along posterior incision which has been completely decompressed with direct pressure -New dry sterile dressing applied to be left in place. Do not remove dressing. Reinforce if needed -Keep right shoulder clean and dry -Continue on IV antibiotics per ID recommendations -Encourage gentle right shoulder, elbow, wrist, finger, and thumb ROM -Partial WB on RUE -We will plan on patient remaining inpatient until the seroma has resolved. Dressing will be changed and wound will be evaluated by Alysha Bell PA-C or Dr. Dunlap every 2-3 days 05/27/17 07:56 Objective: Vital Signs Temp Pulse Resp BP Pulse Ox 37 C 76 18 133/76 H 94 05/26/17 23:43 05/26/17 23:43 05/26/17 23:43 05/26/17 23:43 05/26/17 23:43 Laboratory Results 05/26/17 06:15 05/26/17 06:15 05/26/17 05/27/17 05/28/17 05:59 05:59 05:59 Intake Total 1750 Output Total 1275 Balance 475 PT 15.6 SEC (12.0-15.0) H 05/20/17 04:40 INR 1.24 (0.83-1.16) H 05/20/17 04:40 ICD10 Worksheet Patient Problems: Problems Problem Status Onset Altered mental status Acute Head injury Acute Hyponatremia Acute Osteomyelitis Acute Scalp laceration Acute Sepsis Acute
[2017-05-27] MEDS: ENOXAPARIN 40 MG/0.4 ML SYR SC SCH (08:48)
[2017-05-27] MEDS: CHOLECALCIFEROL VIT D3 1,000 UNITS TAB PO SCH (08:48)
[2017-05-27] MEDS: INSULIN GLARGINE 100 UNITS/ML SYRINGE SC SCH ×2 (08:48→16:56)
[2017-05-27] MEDS: METOPROLOL TARTRATE 25 MG TAB PO SCH ×2 (08:49→21:40)
[2017-05-27] MEDS: LISINOPRIL 5 MG TAB PO SCH (08:51)
[2017-05-27] MEDS: BRIMONIDINE/TIMOLOL 5 ML OPHT.BTL RTEYE SCH ×2 (08:51→21:41)
[2017-05-27] MEDS: GABAPENTIN 300 MG CAP PO SCH ×3 (08:52→21:39)
[2017-05-27] MEDS: cefTRIAXone 2 GM in D5W 50 ML IV SCH (08:52)
[2017-05-27] MEDS: INSULIN REGULAR HUMAN 100 UNIT/ML SC SCH ×4 (08:58→21:41)
--- NOTE | 2017-05-27 10:53 | HOSPPROG ---
Hospitalist Progress Note Assessment/Plan: Patient is a 62y male who is a care home resident. A few weeks ago he lost his balance striking his shoulder on the wall. The shoulder progressively worsened and became more swollen and painful. He was admitted to [facility] and was in septic shock at that time. His blood cultures grew out B strep. He improved and was discharged to [facility]. Per the patient, he was having more discharge from his shoulder and was admitted for further care. * Septic right shoulder abscess and osteomyelitis s/p I&D, clavicle/acromion resection -has a seroma/decreasing in size -per Dr. Dunlap - continue to monitor inpatient - ortho to re-eval every 2-3 days -IV ceftriaxone - ID following intermittently/will need 6 weeks of therapy after date of debridement -ortho notes wound looks stable *emesis per patient had multiple episodes of emesis last night no abd pain/ will get an xray to further evaluate *lower ext swelling hx of this/ will initiate flavio wraps doesn't like caden self * Etoh cirrhosis -sober for 7 years * Pancytopenia -continue to follow -platelet count is better * Dm II -Lantus * HTN -lisinopril * Bipolar -Seroquel * Blindness -continue eye gtt * Paroxysmal Afib/ one episode noted -Lopressor initiated -evaluated 12 lead/shows ST *Dispo: orthopedic surgery would like him hospitalized until seroma resolves Subjective: [place] is c/o some ongoing nausea. Objective: Vital Signs Temp Pulse Resp BP Pulse Ox 36.3 C 102 H 18 157/98 H 96 05/27/17 08:00 05/27/17 08:49 05/27/17 08:00 05/27/17 08:51 05/27/17 08:00 Laboratory Results 05/26/17 06:15 05/26/17 06:15 05/26/17 05/27/17 05/28/17 05:59 05:59 05:59 Intake Total 1750 Output Total 1275 Balance 475 PT 15.6 SEC (12.0-15.0) H 05/20/17 04:40 INR 1.24 (0.83-1.16) H 05/20/17 04:40 - Physical Exam Constitutional: no apparent distress, appears nourished Eyes: other (blind) Ears, Nose, Mouth, Throat: hearing normal Cardiovascular: regular rate and rhythym, edema (ankle bilaterally) Respiratory: no respiratory distress Gastrointestinal: normoactive bowel sounds, soft, non-tender abdomen Skin: warm Musculoskeletal: full muscle strength Neurologic: AAOx3 Psychiatric: interacting appropriately ICD10 Worksheet Patient Problems: Problems Problem Status Onset Altered mental status Acute Head injury Acute Hyponatremia Acute Osteomyelitis Acute Scalp laceration Acute Sepsis Acute
[2017-05-27] MEDS ORDERED: ONDANSETRON DISINTEGRATING 4 MG TAB PO PRN (10:54)
[2017-05-27] MEDS ORDERED: D5W 1/2 NS 500 ML IV SCH (12:45)
--- NOTE | 2017-05-27 16:20 | ASMTCMCOM ---
CM Note CM Note Notes: Chart reviewed. Per Ulisses asmission liason at they are able to meet his IV infusion and wound care needs. Referral and notes sent via allscripts. Will send final orders when patietn is medically cleared for discharge. CM to follow. Date Signed: 05/27/2017 04:20 PM Electronically Signed By:Flor Logan RN
[2017-05-27] MEDS: QUEtiapine FUMARATE 100 MG TAB PO SCH (16:56)
[2017-05-27] MEDS: PANTOPRAZOLE SODIUM 40 MG TAB PO SCH (16:56)
[2017-05-27] MEDS: LATANOPROST 0.005% 2.5 ML OPHT DROPS RTEYE SCH (21:38)
[2017-05-28] MEDS: oxyCODONE IR 5 MG TAB PO PRN ×3 (02:29→13:23)
[2017-05-28] MEDS: ACETAMINOPHEN 325 MG TAB PO PRN ×4 (02:31→21:03)
[2017-05-28] MEDS: DICLOFENAC SODIUM 1% 100 GM GEL TP SCH ×4 (06:24→21:05)
[2017-05-28] MEDS: ENOXAPARIN 40 MG/0.4 ML SYR SC SCH (08:58)
[2017-05-28] MEDS: GABAPENTIN 300 MG CAP PO SCH ×3 (08:59→21:04)
[2017-05-28] MEDS: METOPROLOL TARTRATE 25 MG TAB PO SCH ×2 (08:59→21:04)
[2017-05-28] MEDS: LISINOPRIL 5 MG TAB PO SCH (08:59)
[2017-05-28] MEDS: INSULIN REGULAR HUMAN 100 UNIT/ML SC SCH ×4 (09:01→23:02)
[2017-05-28] MEDS: INSULIN GLARGINE 100 UNITS/ML SYRINGE SC SCH ×2 (09:01→18:41)
[2017-05-28] MEDS: BRIMONIDINE/TIMOLOL 5 ML OPHT.BTL RTEYE SCH ×2 (09:03→21:04)
[2017-05-28] MEDS: cefTRIAXone 2 GM in D5W 50 ML IV SCH (09:11)
--- NOTE | 2017-05-28 09:57 | HOSPPROG ---
Hospitalist Progress Note Assessment/Plan: Patient is a 62y male who is a senior care resident. A few weeks ago he lost his balance striking his shoulder on the wall. The shoulder progressively worsened and became more swollen and painful. He was admitted to [facility] and was in septic shock at that time. His blood cultures grew out B strep. He improved and was discharged to [facility]. Per the patient, he was having more discharge from his shoulder and was admitted for further care. * Septic right shoulder abscess and osteomyelitis s/p I&D, clavicle/acromion resection -has a seroma/decreasing in size -per Dr. Dunlap - continue to monitor inpatient - ortho to re-eval every 2-3 days -IV ceftriaxone - ID following intermittently/will need 6 weeks of therapy after date of debridement -ortho notes wound looks stable *emesis resolved abd xray shows nothing acute *lower ext swelling hx of this/ will initiate flavio wraps doesn't like caden hose * Etoh cirrhosis -sober for 7 years * Pancytopenia -continue to follow -platelet count is better *Hypotension parameters placed as to when to hold bp meds * Dm II -Lantus * HTN -lisinopril * Bipolar -Seroquel * Blindness -continue eye gtt * Paroxysmal Afib/ one episode noted -Lopressor initiated -evaluated 12 lead/shows ST *Dispo: orthopedic surgery would like him hospitalized until seroma resolves. Subjective: Leighann is feeling better today/ no further emesis. Objective: Vital Signs Temp Pulse Resp BP Pulse Ox 36.5 C 77 20 100/56 L 98 05/28/17 08:00 05/28/17 08:00 05/28/17 08:00 05/28/17 08:00 05/28/17 08:00 Laboratory Results 05/26/17 06:15 05/26/17 06:15 05/27/17 05/28/17 05/29/17 05:59 05:59 05:59 Intake Total 1750 Output Total 1275 Balance 475 PT 15.6 SEC (12.0-15.0) H 05/20/17 04:40 INR 1.24 (0.83-1.16) H 05/20/17 04:40 - Physical Exam Constitutional: no apparent distress, appears nourished, No not in pain Ears, Nose, Mouth, Throat: hearing normal Cardiovascular: regular rate and rhythym Respiratory: no respiratory distress Skin: warm Musculoskeletal: full muscle strength Neurologic: AAOx3 Psychiatric: interacting appropriately, not anxious ICD10 Worksheet Patient Problems: Problems Problem Status Onset Altered mental status Acute Head injury Acute Hyponatremia Acute Osteomyelitis Acute Scalp laceration Acute Sepsis Acute
--- NOTE | 2017-05-28 13:17 | WOCRNPDOC ---
WOCRN Advanced Assessment Note - Skin Integrity Problem, Advanced Assess Gluteal Cleft Dressing Type: Open to Air Exudate Amount: None Exudate Characteristic(s): None Integumentary Issue Intervention: Barrier Cream Applied (Calazime) Meg Wound Tissue: Blanching, Intact, Scarred, Hypertrophic Meg Wound Swelling: Mild Wound Bed Color: Red Wound Bed Constitution: Red/[place] - Non Granular Tissue Skin Integrity Problem Comment: Pinpoint scattered areas of partial-thickness tissue loss in patient's gluteal cleft and over areas of raised scar tissue. This appears to be moisture-related, though patient's skin was dry during assessment. Not concerning for pressure injury, as these sites are located over fleshy areas of the buttocks. Patient reports mild discomfort, so Calazime cream was applied by pulverizer Becky to protect the skin. In addition, he was supplied w/ a pressure-relieving cushion for comfort. Wound care does not need to follow this wound ongoing, and nursing is advised to reconsult as needed.
[2017-05-28] MEDS: PANTOPRAZOLE SODIUM 40 MG TAB PO SCH (16:13)
[2017-05-28] MEDS: QUEtiapine FUMARATE 100 MG TAB PO SCH (16:14)
[2017-05-28] MEDS: LATANOPROST 0.005% 2.5 ML OPHT DROPS RTEYE SCH (21:04)
[2017-05-29] MEDS: oxyCODONE IR 5 MG TAB PO PRN ×5 (00:46→21:27)
[2017-05-29] MEDS: ACETAMINOPHEN 325 MG TAB PO PRN ×4 (01:07→21:28)
[2017-05-29] MEDS: DICLOFENAC SODIUM 1% 100 GM GEL TP SCH ×4 (05:34→21:06)
[2017-05-29] MEDS: METOPROLOL TARTRATE 25 MG TAB PO SCH ×2 (08:33→21:06)
[2017-05-29] MEDS: GABAPENTIN 300 MG CAP PO SCH ×3 (08:33→21:06)
[2017-05-29] MEDS: LISINOPRIL 5 MG TAB PO SCH (08:34)
[2017-05-29] MEDS: INSULIN GLARGINE 100 UNITS/ML SYRINGE SC SCH ×2 (08:34→18:34)
[2017-05-29] MEDS: ENOXAPARIN 40 MG/0.4 ML SYR SC SCH (08:34)
[2017-05-29] MEDS: cefTRIAXone 2 GM in D5W 50 ML IV SCH (08:34)
[2017-05-29] MEDS: INSULIN REGULAR HUMAN 100 UNIT/ML SC SCH ×4 (08:36→21:34)
[2017-05-29] MEDS: BRIMONIDINE/TIMOLOL 5 ML OPHT.BTL RTEYE SCH ×2 (08:51→21:08)
--- NOTE | 2017-05-29 14:14 | HOSPPROG ---
Hospitalist Progress Note Assessment/Plan: Patient is a 62y male who is a alf resident. A few weeks ago he lost his balance striking his shoulder on the wall. The shoulder progressively worsened and became more swollen and painful. He was admitted to [facility] and was in septic shock at that time. His blood cultures grew out B strep. He improved and was discharged to [facility]. Per the patient, he was having more discharge from his shoulder and was admitted for further care. * Septic right shoulder abscess and osteomyelitis s/p I&D, clavicle/acromion resection -has a seroma/decreasing in size -per Dr. Dunlap - continue to monitor inpatient - ortho to re-eval every 2-3 days -IV ceftriaxone - ID following intermittently/will need 6 weeks of therapy after date of debridement -ortho notes wound looks stable *emesis resolved abd xray shows nothing acute *lower ext swelling hx of this/ will initiate flavio wraps doesn't like caden hose * Etoh cirrhosis -sober for 7 years * Pancytopenia -continue to follow -platelet count is better *Hypotension parameters placed as to when to hold bp meds * Dm II -Lantus * HTN -lisinopril * Bipolar -Seroquel * Blindness -continue eye gtt * Paroxysmal Afib/ one episode noted -Lopressor initiated -evaluated 12 lead/shows ST *Dispo: orthopedic surgery would like him hospitalized until seroma resolves. Subjective: Feeling ok. Some pain in shoulder. Objective: Vital Signs Temp Pulse Resp BP Pulse Ox 36.9 C 71 20 139/59 H 100 05/29/17 07:40 05/29/17 07:40 05/29/17 07:40 05/29/17 07:40 05/29/17 07:40 Laboratory Results 05/26/17 06:15 05/26/17 06:15 05/28/17 05/29/17 05/30/17 05:59 05:59 05:59 Intake Total 1060 Output Total 350 Balance 1060 -350 PT 15.6 SEC (12.0-15.0) H 05/20/17 04:40 INR 1.24 (0.83-1.16) H 05/20/17 04:40 - Physical Exam Constitutional: chronically ill appearing, uncomfortable Eyes: PERRL, anicteric sclera Ears, Nose, Mouth, Throat: moist mucous membranes, hearing normal Cardiovascular: No JVD, No edema Respiratory: no respiratory distress, reduced air movement Gastrointestinal: No tenderness, No ascites Skin: warm, normal color Musculoskeletal: joint tenderness, pain with ROM Psychiatric: not anxious, poor insight, poor judgement ICD10 Worksheet Patient Problems: Problems Problem Status Onset Altered mental status Acute Head injury Acute Scalp laceration Acute Sepsis Acute Hyponatremia Acute Osteomyelitis Acute
--- NOTE | 2017-05-29 14:32 | ASMTCMCOM ---
CM Note CM Note Notes: CM sent [facility] updates. Pt will return to [facility] when medically stable. CM to follow. Date Signed: 05/29/2017 02:32 PM Electronically Signed By:VAHID Henry
[2017-05-29] MEDS: PANTOPRAZOLE SODIUM 40 MG TAB PO SCH (17:30)
[2017-05-29] MEDS: QUEtiapine FUMARATE 100 MG TAB PO SCH (17:30)
[2017-05-29] MEDS: LATANOPROST 0.005% 2.5 ML OPHT DROPS RTEYE SCH (21:07)
[2017-05-30] MEDS: oxyCODONE IR 5 MG TAB PO PRN ×3 (02:59→15:15)
[2017-05-30] MEDS: ACETAMINOPHEN 325 MG TAB PO PRN ×3 (03:00→15:15)
[2017-05-30] MEDS: DICLOFENAC SODIUM 1% 100 GM GEL TP SCH ×2 (07:13→12:41)
[2017-05-30 07:52] VITALS: BP 162/82; PULSE 83; RESP 22; TEMP 97.8; O2SAT 97
[2017-05-30] MEDS: INSULIN REGULAR HUMAN 100 UNIT/ML SC SCH ×2 (08:18→12:01)
[2017-05-30] MEDS: GABAPENTIN 300 MG CAP PO SCH (08:28)
[2017-05-30] MEDS: METOPROLOL TARTRATE 25 MG TAB PO SCH (08:29)
[2017-05-30] MEDS: LISINOPRIL 5 MG TAB PO SCH (08:29)
[2017-05-30] MEDS: cefTRIAXone 2 GM in D5W 50 ML IV SCH (08:30)
[2017-05-30] MEDS: ENOXAPARIN 40 MG/0.4 ML SYR SC SCH (08:30)
[2017-05-30] MEDS: INSULIN GLARGINE 100 UNITS/ML SYRINGE SC SCH (08:40)
[2017-05-30] MEDS: BRIMONIDINE/TIMOLOL 5 ML OPHT.BTL RTEYE SCH (11:33)
--- NOTE | 2017-05-30 12:05 | PCMIDPN ---
Assessment/Plan: Right shoulder abscess and clavicular osteomyelitis with associated group B streptococcal bacteremia with operative culture showing growth of both group B Streptococcus and P. acnes. Overall stable with increase ROM R shoulder --Continue ceftriaxone given isolation of P acnes. --Seroma managed by surgery --Plan 6 weeks of antibiotic therapy, 06/17/17 --will arrange follow up by end of day today. --check labs today. Noted leukopenia/thrombocytopenia - likely baseline Medications Ceftriaxone 2 g IV daily Subjective: My shoulder really hurts, I am just getting used to it No diarrhea Objective: Vital Signs Temp Pulse Resp BP Pulse Ox 36.6 C 83 22 H 162/82 H 97 05/30/17 07:48 05/30/17 07:48 05/30/17 07:48 05/30/17 07:48 05/30/17 07:48 Laboratory Results 05/26/17 06:15 05/26/17 06:15 05/29/17 05/30/17 05/31/17 05:59 05:59 05:59 Intake Total 1060 400 Output Total 350 Balance 1060 50 - Physical Exam General Appearance: alert, no apparent distress Respiratory: No accessory muscle use Cardiac/Chest: regular rate, rhythm Extremities: pedal edema, other (Right shoulder with minimal swelling, no erythema. Dressing was not removed per surgery request) Neuro/Psych: alert, normal mood/affect, oriented x 3 - Line/s LUE PICC Lines: No drainage, No erythema ICD10 Worksheet Patient Problems: Problems Problem Status Onset Altered mental status Acute Head injury Acute Hyponatremia Acute Osteomyelitis Acute Scalp laceration Acute Sepsis Acute
--- NOTE | 2017-05-30 12:30 | PDIAF ---
- Diagnosis Diagnosis: Right shoulder abscess and clavicular osteomyelitis with associated group B Code Status: Full Code - Medication Management Discharge Medications: Medications to Continue on Transfer Brimonidine/Timolol [Combigan (*)] 1 drop RTEYE BID 09/09/16 [Last Taken 08:00] Calcium Carbonate [Tums 500MG (*)] 1,000 mg PO Q12H PRN 09/09/16 [Last Taken Unknown] Cholecalciferol Vit D3 [Vitamin D3 (*)] 5,000 units PO MO@09/09/16 [Last Taken 05/13/17] Latanoprost 0.005% [Xalatan 0.005% (*)] 1 drops RTEYE HS 09/09/16 [Last Taken ] Magnesium Hydroxide [Milk of Magnesia] 30 ml PO DAILY PRN 09/09/16 [Last Taken Unknown] Omeprazole [Prilosec 20 mg] 20 mg PO DAILY@09/09/16 [Last Taken 05/18/17] Acetaminophen [Tylenol 325mg (*)] 650 mg PO Q6HRS PRN 05/01/17 [Last Taken Unknown] Diclofenac Sodium 1% [Voltaren Gel (*)] 4 gm TP QID 05/01/17 [Last Taken ] Gabapentin [Neurontin 300 MG (*)] 300 mg PO TID 05/01/17 [Last Taken 05/19/17 08 :00] Insulin Aspart [Novolog Flexpen] 4 unit SQ BID@1130,1730 05/01/17 [Last Taken 11:30] Insulin Detemir [Levemir] 22 unit SQ BID@,05/01/17 [Last Taken 05/18/17 17: 00] QUEtiapine FUMARATE [Seroquel 100 mg (*)] 100 mg PO DAILY@05/01/17 [Last Taken 05/18/17] oxyCODONE IR [Oxycodone Ir (*)] 10 mg PO Q4HRS PRN 05/01/17 [Last Taken 05/19/17 ] Lisinopril [Zestril 5 mg (*)] 10 mg PO DAILY #30 tab 05/18/17 [Last Taken ] cefTRIAXone [Rocephin] 2 gm IV DAILY #10 vial 05/18/17 [Last Taken 05/19/17] [facility] Antibiotics: ceftriaxone 2gm IV daily [facility] Antibiotic Stop Date: 06/17/17 Discharge Medications: Refer to the Discharge Home Medication list for PRN reason. PICC Care - Routine: Yes - Labs/Radiology CBC w/diff Date: 06/03/17 (Weekly, Saturday) CMP Date: 06/03/17 (Weekly, Saturday) CRP Date: 06/03/17 (Weekly, Saturday) Call or Fax Lab and Imaging Results to: Reji Saldana MD [facility] at fax [phone] - Follow Up Care Current Providers and Referrals: Patient,NotPresent [Primary Care Provider] - Reji Saldana MD [Medical Doctor] - 06/07/17 10:30 am
--- NOTE | 2017-05-30 13:00 | PDIAF ---
- Diagnosis Diagnosis: Right shoulder abscess and clavicular osteomyelitis with associated group B Code Status: Full Code - Medication Management Discharge Medications: Medications to Continue on Transfer Brimonidine/Timolol [Combigan (*)] 1 drop RTEYE BID 09/09/16 [Last Taken 08:00] Calcium Carbonate [Tums 500MG (*)] 1,000 mg PO Q12H PRN 09/09/16 [Last Taken Unknown] Cholecalciferol Vit D3 [Vitamin D3 (*)] 5,000 units PO MO@09/09/16 [Last Taken 05/13/17] Latanoprost 0.005% [Xalatan 0.005% (*)] 1 drops RTEYE HS 09/09/16 [Last Taken ] Magnesium Hydroxide [Milk of Magnesia] 30 ml PO DAILY PRN 09/09/16 [Last Taken Unknown] Omeprazole [Prilosec 20 mg] 20 mg PO DAILY@09/09/16 [Last Taken 05/18/17] Diclofenac Sodium 1% [Voltaren Gel (*)] 4 gm TP QID 05/01/17 [Last Taken ] Gabapentin [Neurontin 300 MG (*)] 300 mg PO TID 05/01/17 [Last Taken 05/19/17 08 :00] Insulin Aspart [Novolog Flexpen] 4 unit SQ BID@1130,1730 05/01/17 [Last Taken 11:30] Insulin Detemir [Levemir] 22 unit SQ BID@,05/01/17 [Last Taken 05/18/17 17: 00] QUEtiapine FUMARATE [Seroquel 100 mg (*)] 100 mg PO DAILY@05/01/17 [Last Taken 05/18/17] oxyCODONE IR [Oxycodone Ir (*)] 10 mg PO Q4HRS PRN 05/01/17 [Last Taken 05/19/17 ] Lisinopril [Zestril 5 mg (*)] 10 mg PO DAILY #30 tab 05/18/17 [Last Taken ] cefTRIAXone [Rocephin] 2 gm IV DAILY #10 vial 05/18/17 [Last Taken 05/19/17] Acetaminophen [Tylenol 325mg (*)] 650 mg PO Q4 PRN tab 05/30/17 [Last Taken Unknown] Metoprolol Tartrate [Lopressor 25 mg (*)] 25 mg PO BID tab 05/30/17 [Last Taken Unknown] cefTRIAXone [Rocephin] 2 gm IV DAILY vial 05/30/17 [Last Taken Unknown] oxyCODONE IR [Oxycodone Ir (*)] 5 - 10 mg PO Q4 PRN tab 05/30/17 [Last Taken Unknown] Skilled Nursing Antibiotics: ceftriaxone 2gm IV daily Skilled Nursing Antibiotic Stop Date: 06/17/17 Discharge Medications: Refer to the Discharge Home Medication list for PRN reason. PICC Care - Routine: Yes - Orders Services needed: Registered Nurse, Physical Therapy, Occupational Therapy Diet Recommendation: no restrictions on diet - Labs/Radiology CBC w/diff Date: 06/03/17 (Weekly, Saturday) CMP Date: 06/03/17 (Weekly, Saturday) CRP Date: 06/03/17 (Weekly, Saturday) Call or Fax Lab and Imaging Results to: Reji Saldana MD [facility] at fax [phone] - Follow Up Care Current Providers and Referrals: Patient,NotPresent [Primary Care Provider] - Reji Saldana MD [Medical Doctor] - 06/07/17 10:30 am
--- NOTE | 2017-05-30 13:21 | SOAPPROG ---
DANDRE Progress Note Assessment/Plan: Assessment from 05/29/17 HPI: 62 year old male now POD#27 from a right shoulder multi-lobulated abscess incision and drainage with right lateral clavicle, right acromion, and right lateral scapular spine resection due to concomitant osteomyelitis on 05/02/17. He reports his shoulder pain is improving PE: RUE: Incision nicely approximated Area of fluctuance along posterior incision has resolved-- gentle pressure applied to this area without any drainage expressed +D, B, T, ECRL, ECRB, EPL, FPL, FDS, FDP +A / M / R / U SILT 2+ radial and ulnar pulses Assessment and Plan: 62 year old male now POD#27 from a right shoulder multi-lobulated abscess incision and drainage with right lateral clavicle, right acromion, and right lateral scapular spine resection due to concomitant osteomyelitis on 05/02/17 - - seroma now resolved -New dry sterile dressing applied to be left in place. Do not remove dressing. Reinforce if needed -Keep right shoulder clean and dry -Continue on IV antibiotics per ID recommendations -Encourage gentle right shoulder, elbow, wrist, finger, and thumb ROM -Partial WB on RUE -Patient may be discharged to halfway as long as post operative antibiotics are available. He will follow up with Dr. Dunlap or Alysha Bell PA-C every 2-3 days for dressing change and wound check Objective: Vital Signs Temp Pulse Resp BP Pulse Ox 36.6 C 83 22 H 162/82 H 97 05/30/17 07:48 05/30/17 07:48 05/30/17 07:48 05/30/17 07:48 05/30/17 07:48 Laboratory Results 05/26/17 06:15 05/26/17 06:15 05/29/17 05/30/17 05/31/17 05:59 05:59 05:59 Intake Total 1060 400 Output Total 350 Balance 1060 50 PT 15.6 SEC (12.0-15.0) H 05/20/17 04:40 INR 1.24 (0.83-1.16) H 05/20/17 04:40 ICD10 Worksheet Patient Problems: Problems Problem Status Onset Altered mental status Acute Head injury Acute Hyponatremia Acute Osteomyelitis Acute Scalp laceration Acute Sepsis Acute
--- NOTE | 2017-05-30 15:30 | ASMTCMCOM ---
CM Note CM Note Notes: D/w , final orders faxed, Jennifer at notified, RN to call report. Date Signed: 05/30/2017 03:29 PM Electronically Signed By:Мария Martinez RN
--- NOTE | 2017-05-30 15:41 | GDS ---
[f rep st] DISCHARGE SUMMARY DISCHARGE DIAGNOSES: 1. Septic right shoulder abscess and osteomyelitis. 2. Lower extremity swelling. 3. History of alcohol cirrhosis. 4. Pancytopenia. 5. Hypotension. 6. Diabetes mellitus, type 2. 7. Hypertension. 8. Blindness. 9. Bipolar. 10. Paroxysmal atrial fibrillation. CONSULTATIONS: 1. Infectious Disease. 2. Dr. Dunlap. STUDIES AND PROCEDURES DONE: Please refer to chart, as multiple interventions have been performed du ring this hospitalization, as well as previous hospitalization. PHYSICAL EXAMINATION: GENERAL: Patient is alert. VITAL SIGNS: Afebrile at 36.6, pulse is 83, resp iratory rate is 22, blood pressure is 162/82. He is saturating 97% on room air. I have seen and jyoti luated the patient on the day of discharge. HOSPITAL COURSE: The patient is a 62-year-old male, presents to the hospital after suffering shoulde r pain. He was evaluated and diagnosed with: 1. Right shoulder abscess and osteomyelitis. During this hospitalization, he had multiple intervent ions performed secondary to this condition. He received a consultation from Infectious Disease, as w ell as Dr. Dunlap of Orthopedics. A seroma developed during this hospitalization and has been draine d and dealt with. He is expected to follow up with Dr. Dunlap in 3 to 4 days after disposition. 2. Group B strep sepsis. This has resolved. 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 4. Diabetes mellitus, type 2. This is stable. DISPOSITION: The patient will be discharged to return to [facility], where he normally resides. He will follow up with Dr. Dunlap, as well as primary care physician, in the outpatient setting with continued wound care, as well as IV antibiotic therapy. He will also follow up with Infectious Disejoa[facility] love, Dr. Reji Saldana, on 06/07/2017, at 10:30 a.m. PENDING STUDIES: There are no pending studies. DISCHARGE MEDICATIONS: Please refer to EMR form. The patient will be discharged on IV Rocephin, as well as a new medication of Lopressor, given his bout of atrial fibrillation during this hospitalizat ion. I have spent greater than 35 minutes in the care, coordination, and management of this patient's disp osition, discussing his discharge with Dr. Joseph, who is in agreement with this plan. /[id number]/MODL
--- NOTE | 2017-05-31 10:22 | ASDISCHSUM ---
Discharge Information Plan Status:Snf Return Medically Cleared to Leave: Discharge Date:05/30/2017 03:35 PM CM D/C Disposition:[facility] Facility ADT D/C Disposition:[facility] Facility Projected Discharge Date:05/30/2017 11:00 AM Transportation at D/C:Wheelchair Van Discharge Delay Reason: Follow-Up Date:05/30/2017 11:00 AM Discharge Slot: Final Diagnosis: Placement Information Referral Type:*Snf/SNF Referral ID:[id number] Provider Name:Belia Avalos/NikkiEigenta Address 1:[address] Phone Number: Address 2: Fax Number: [facility]:[place] Selection Factors: State:[place] Patient Contact Information Contact Name:VANESSA Relationship:Sister Address: Work Phone: City: [facility] Phone: [facility] Code: Email: Financial Information Financial Class: Primary Plan Desc:[facility] [facility] Primary Plan Number:[id number] Secondary Plan Desc: Secondary Plan Number: Assessment Information [facility] CM Progress Note CM Note CM Note Notes: Patient admitted to [facility] yesterday from [facility] where he was found to have significant drainage from an injury on his shoulder. He had been at [facility] from 05/03 - 05/19 receiving pressors, IV abx, and wound care for the same injury/septic shock. He will remain inpatient here until seroma completely resolves and all sutures are removed. He will then likely return to pending care team recommendations. Current CM discharge plan: [facility] unless otherwise indicated Date Signed: 05/21/2017 10:28 AM Electronically Signed By:Padmini Deal RN [facility] CM Progress Note CM Note CM Note Notes: Reviewed chart for discharge plan, pt's progress. Per MD notes, awaiting orthopedic approval for discharge back to [facility]. Pt will likely require 6 wks of IV antibiotics and wound care on d/c. CM will need to verify w/ Jennifer at [facility] that services can be provided and that pt can be closely followed. Orthopedics to re-eval in 2-3 days. CM will cont to follow. Date Signed: 05/25/2017 04:19 PM Electronically Signed By:Krystyna Means RN [facility] CM Progress Note CM Note CM Note Notes: Chart reviewed. [facility] are able to meet his IV infusion and wound care needs. Referral and notes sent via [employer]. Will send final orders when patietn is medically cleared for discharge. CM to follow. Date Signed: 05/27/2017 04:20 PM Electronically Signed By:Flor Logan RN [facility] CM Progress Note CM Note CM Note Notes: CM sent [facility] updates. Pt will return to [facility] when medically stable. CM to follow. Date Signed: 05/29/2017 02:32 PM Electronically Signed By:VAHID Henry [facility] CM Progress Note CM Note CM Note Notes: D/juventino MONROE, final orders faxed, Jennifer at [facility], TODD to call report. Date Signed: 05/30/2017 03:29 PM Electronically Signed By:Мария Martinez RN Intervention Information
== END 2017-05-30 15:35 | DRG 920 ==
LOC: F3N 14:55 → F3E 05-21 18:43
PROVIDERS: ADMIT Internal Medicine; ATTEND Internal Medicine
DX: L76.34 Postprocedural seroma of skin and subcutaneous tissue following other procedure (principal); M86.111 Other acute osteomyelitis, right shoulder; D61.818 Other pancytopenia; K70.30 Alcoholic cirrhosis of liver without ascites; E11.9 Type 2 diabetes mellitus without complications; I10 Essential (primary) hypertension; F31.9 Bipolar disorder, unspecified; I48.0 Paroxysmal atrial fibrillation
CPT/HCPCS: 82947-QW; 97110-GO; 97165-GO; 97530-GO; J0696; J1170; J1650; J1815; J2405

== ENCOUNTER → 2017-12-26 | Outpatient (CLI) | payer MEDICAID ==
[~2017-12-26] MED LIST: IOPAMIDOL (ISOVUE-300) 100 ML BTL ONE
== END ==
LOC: FIMAGING 08:23
PROVIDERS: ATTEND Nurse Practitioner Gerontology
DX: R51 Headache (principal); H40.059 Ocular hypertension, unspecified eye; G89.21 Chronic pain due to trauma
CPT/HCPCS: 82565-PO; Q9967